=== PATIENT | female | born 1935 | race Caucasian/White ===

== ENCOUNTER → 2021-08-23 | Outpatient (CLI) | payer SELFPAY ==
[2021-08-23 15:13] LABS: BASOPHILS ABSOLUTE AUTO 0.09 K/mm3 (0.00-0.23); BASOPHILS PERCENT AUTO 1 % (0-2); EOSINOPHILS ABSOLUTE AUTO 0.98 K/mm3 (0.00-0.68); EOSINOPHILS PERCENT AUTO 11 % (0-6); Hematocrit 38.9 % (33.0-51.0); Hemoglobin 12.5 g/dL (11.5-16.0); IMMATURE GRAN ABSOLUTE AUTO 0.02 K/mm3 (0.00-0.10); IMMATURE GRAN PERCENT AUTO 0 % (0-1); LYMPHOCYTES ABSOLUTE AUTO 1.44 K/mm3 (0.84-5.20); LYMPHOCYTES PERCENT AUTO 17 % (21-46); MONOCYTES ABSOLUTE AUTO 0.65 K/mm3 (0.16-1.47); MONOCYTES PERCENT AUTO 8 % (4-13); Mean Corpuscular HGB 30.3 pg (26.0-34.0); Mean Corpuscular HGB Conc 32.1 g/dL (31.5-36.5); Mean Corpuscular Volume 94 fL (80-100); Mean Platelet Volume 9.3 fL (9.1-12.4); NEUTROPHILS ABSOLUTE AUTO 5.38 K/mm3 (1.96-9.15); NEUTROPHILS PERCENT AUTO 63 % (41-73); Platelet Count 356 K/mm3 (150-400); RDW Coefficient Variation 13.2 % (11.7-14.2); RDW Standard Deviation 45.5 fL (35.1-46.3); Red Blood Cell Count 4.13 M/mm3 (3.80-5.20); White Blood Cell Count 8.56 K/mm3 (4.00-11.30)
[2021-08-23 15:31] LABS: Albumin, Blood 3.7 g/dL (3.4-5.0); Albumin/Globulin Ratio 0.7 (0.8-1.8); Bilirubin, Total 0.3 mg/dL (0.1-1.0); Bun/Creatinine Ratio 16.4 (12.0-20.0); Calcium, Blood 9.5 mg/dL (8.5-10.1); Creatinine, Blood 2.01 mg/dL (0.40-1.00); Globulin, Blood 5.3 g/dL (2.2-4.0); Potassium, Blood 4.5 mmol/L (3.5-5.5); Thyroid Stimulating Hormone 2.386 uIU/mL (0.360-4.800)
== END | disposition home or self-care (01) ==
LOC: LAB SHORT 15:05
PROVIDERS: Chiropractor
DX: R07.9 Chest pain, unspecified (principal); R53.83 Other fatigue; R60.0 Localized edema
CPT/HCPCS: 80053; 83880; 84443; 84484; 85025; 85379

== ENCOUNTER → 2022-09-27 | Outpatient (CLI) | payer MEDICARE, BC | END | disposition home or self-care (01) | LOC: LAB SHORT 14:48 → PLD 14:48 | DX: L57.0 Actinic keratosis (principal) | CPT/HCPCS: 88305 ==

== ENCOUNTER 2022-12-18 07:47 | Emergency (ER) | payer MEDICARE, BC ==
[~2022-12-18] VITALS: Ht 165.1 cm; Wt 69.8 kg
[2022-12-18] MEDS ORDERED: SYNTHROID75 MCG PO (08:11)
[2022-12-18] MEDS ORDERED: SODBIC650 PO (08:11)
[2022-12-18] MEDS ORDERED: FOLI1 PO (08:12)
[2022-12-18] MEDS ORDERED: SIMBRINZA 1%-0.28 M1 RIGHTEYE (08:12)
[2022-12-18] MEDS ORDERED: FOSAMAX70 MG PO (08:12)
[2022-12-18] MEDS ORDERED: TRULICITY0.75 MG/01 SC (08:12)
[2022-12-18] MEDS ORDERED: CATAPRES-TTS 11 EAC1 TOP (08:12)
[2022-12-18] MEDS ORDERED: GLIP5ER PO (08:13)
[2022-12-18] MEDS ORDERED: HYDRA50 PO (08:13)
[2022-12-18] MEDS ORDERED: LOSARTAN-HCTZ1 EACH PO (08:13)
[2022-12-18] MEDS ORDERED: ASPIR 8181 MG PO (08:14)
[2022-12-18] MEDS ORDERED: ASPI325 (08:15)
[2022-12-18 08:23] LABS: BASOPHILS ABSOLUTE AUTO 0.08 K/mm3 (0.00-0.23); BASOPHILS PERCENT AUTO 1 % (0-2); EOSINOPHILS ABSOLUTE AUTO 0.36 K/mm3 (0.00-0.68); EOSINOPHILS PERCENT AUTO 2 % (0-6); Hematocrit 34.4 % (33.0-51.0); Hemoglobin 11.3 g/dL (11.5-16.0); IMMATURE GRAN ABSOLUTE AUTO 0.05 K/mm3 (0.00-0.10); IMMATURE GRAN PERCENT AUTO 0 % (0-1); LYMPHOCYTES ABSOLUTE AUTO 1.24 K/mm3 (0.84-5.20); LYMPHOCYTES PERCENT AUTO 7 % (21-46); MONOCYTES ABSOLUTE AUTO 0.96 K/mm3 (0.16-1.47); MONOCYTES PERCENT AUTO 6 % (4-13); Mean Corpuscular HGB 30.1 pg (26.0-34.0); Mean Corpuscular HGB Conc 32.8 g/dL (31.5-36.5); Mean Corpuscular Volume 92 fL (80-100); Mean Platelet Volume 9.9 fL (9.1-12.4); NEUTROPHILS ABSOLUTE AUTO 14.82 K/mm3 (1.96-9.15); NEUTROPHILS PERCENT AUTO 85 % (41-73); Platelet Count 307 K/mm3 (150-400); RDW Coefficient Variation 13.1 % (11.7-14.2); RDW Standard Deviation 43.5 fL (35.1-46.3); Red Blood Cell Count 3.76 M/mm3 (3.80-5.20); White Blood Cell Count 17.51 K/mm3 (4.00-11.30)
[2022-12-18 08:46] LABS: Magnesium, Blood 2.1 mg/dL (1.6-2.4)
[2022-12-18 08:47] LABS: Albumin, Blood 3.7 g/dL (3.4-5.0); Albumin/Globulin Ratio 0.9 (0.8-1.8); Bilirubin, Total 0.4 mg/dL (0.1-1.0); Bun/Creatinine Ratio 31.4 (12.0-20.0); Calcium, Blood 9.6 mg/dL (8.5-10.1); Creatinine, Blood 1.59 mg/dL (0.40-1.00); Globulin, Blood 4.1 g/dL (2.2-4.0); Total Protein, Blood 7.8 g/dL (6.4-8.2)
[2022-12-18 12:02] VITALS: BP 138/68
[2022-12-18] MEDS ORDERED: ALBU90OI INH (12:19)
[2022-12-18] MEDS ORDERED: AZIT250 PO (12:19)
[2022-12-18] MEDS ORDERED: PRED20 PO (12:19)
== END 2022-12-18 12:28 | disposition home or self-care (01) ==
LOC: ER 07:47
PROVIDERS: Student in an Organized Health Care Education/Training Program
DX: J44.1 Chronic obstructive pulmonary disease with (acute) exacerbation (principal); R07.81 Pleurodynia; D72.829 Elevated white blood cell count, unspecified; R73.9 Hyperglycemia, unspecified; Z88.8 Allergy status to other drugs, medicaments and biological substances; Z79.899 Other long term (current) drug therapy; Z87.891 Personal history of nicotine dependence
CPT/HCPCS: 71046; 71260; 80053; 83735; 83880; 84145; 84484; 85025; 93005; 93010; 94640; 94664; 96361; 96374; 99285-25; A9270; J1885; J7030; J7512; Q9967

== ENCOUNTER 2023-10-02 12:08 | Inpatient (IN) | payer MEDICARE, BC ==
[~2023-10-02] VITALS: Ht 165.1 cm; Wt 66.5 kg
[~2023-10-02 12:08] MED LIST: ALBU90OI INH; ASPI325; ASPIR 8181 MG PO; AZIT250 PO; Acetaminophen650 M1 PO; CATAPRES0.1 MG PO; DOCUZEN 8.6-501 EACH PO; FERSU300 PO; FOLI1 PO; FOSAMAX70 MG PO; GLIP5ER PO; HYDRA50 PO; LOSARTAN-HCTZ1 EACH PO; MIRALAX17 GM PO; OXYC5 PO; PRED20 PO; SIMBRINZA 1%-0.28 M1 RIGHTEYE; SODBIC650 PO; SYNTHROID75 MCG PO; TRULICITY0.75 MG/01 SC
[2023-10-02] MEDS ORDERED: BYDUREON B2 MG/0.81 SC (12:47)
[2023-10-02] MEDS ORDERED: NS 1,000 ML IV SCH ×3 (13:05→16:10)
[2023-10-02 13:18] LABS: Hematocrit 33.6 % (33.0-51.0); Mean Corpuscular HGB 30.4 pg (26.0-34.0); Mean Corpuscular HGB Conc 32.7 g/dL (31.5-36.5); Mean Corpuscular Volume 93 fL (80-100); Mean Platelet Volume 9.9 fL (9.1-12.4); Platelet Count 278 K/mm3 (150-400); RDW Coefficient Variation 13.6 % (11.7-14.2); RDW Standard Deviation 46.5 fL (35.1-46.3); Red Blood Cell Count 3.62 M/mm3 (3.80-5.20); White Blood Cell Count 20.34 K/mm3 (4.00-11.30)
[2023-10-02 13:35] LABS: Albumin, Blood 3.5 g/dL (3.4-5.0); Albumin/Globulin Ratio 0.8 (0.8-1.8); Bilirubin, Total 0.7 mg/dL (0.1-1.0); Bun/Creatinine Ratio 29.3 (12.0-20.0); Creatinine, Blood 2.29 mg/dL (0.40-1.00); Globulin, Blood 4.4 g/dL (2.2-4.0); Potassium, Blood 5.6 mmol/L (3.5-5.5); Total Protein, Blood 7.9 g/dL (6.4-8.2)
[2023-10-02 13:45] LABS: BAND PERCENT MAN 10 % (0-8); BASOPHILS PERCENT MAN 0 % (0-2); EOSINOPHILS ABSOLUTE MAN 0.61 K/mm3 (0.00-0.68); EOSINOPHILS PERCENT MAN 3 % (0-6); LYMPHOCYTES ABSOLUTE MAN 0.81 K/mm3 (0.84-5.20); LYMPHOCYTES PERCENT MAN 4 % (21-46); MONOCYTES ABSOLUTE MAN 0.61 K/mm3 (0.16-1.47); MONOCYTES PERCENT MAN 3 % (4-13); SEG NEUTROPHILS PERCENT MAN 80 % (41-73); TOTAL CELLS COUNTED 100
[2023-10-02 13:54] LABS: Influenza A, PCR NEGATIVE (NEGATIVE); Influenza B, PCR NEGATIVE (NEGATIVE); Resp Syncytial Virus, PCR NEGATIVE (NEGATIVE); SARS-Cov-2 (COVID-19) PCR, MMC NEGATIVE (NEGATIVE)
[2023-10-02] MEDS ORDERED: CefTRIAXone Sodium 1,000 MG in NS 50 ML IV ONE (14:40)
[2023-10-02] MEDS ORDERED: Azithromycin 500 MG in NS 250 ML IV ONE (14:40)
[2023-10-02] MEDS ORDERED: Albuterol 2.5 MG/3 ML VIAL INH SCH (14:45)
[2023-10-02] MEDS ORDERED: Acetaminophen 325 MG TABLET PO PRN (16:10)
[2023-10-02 16:51] LABS: Source, Urine Clean Catch
[2023-10-02 17:11] LABS: Appearance, Urine Clear (Clear); Bilirubin, Urine Neg (Neg); Blood, Urine Neg (Neg); Color, Urine Yellow (P-Yellow); Glucose Qualitative, Urine Neg (Neg); Ketones, Urine Neg (Neg); Leukocyte Esterase, Urine Neg (Neg); Nitrite, Urine Neg (Neg); Protein, Urine 1+ (Neg); Urobilinogen, Urine NORM (Normal)
[2023-10-02 17:16] LABS: Bun/Creatinine Ratio 27.4 (12.0-20.0); Calcium, Blood 8.1 mg/dL (8.5-10.1); Creatinine, Blood 2.26 mg/dL (0.40-1.00)
[2023-10-02] MEDS ORDERED: FARXIGA10 MG PO (17:27)
[2023-10-02] MEDS ORDERED: FLUT.05NI (17:27)
[2023-10-02] MEDS ORDERED: HYDRA50 PO (17:28)
[2023-10-02] MEDS ORDERED: OXYC5 PO (18:40)
[2023-10-02 18:41] VITALS: BP 116/75
[2023-10-02] MEDS ORDERED: Azithromycin 200 MG/5 ML SUSP 5ML UDC PO ONE (19:00)
--- NOTE | 2023-10-02 19:22 | NUR ---
ADMISSION NOTE: PATIENT ARRIVES TO ROOM VIA GURNEY AT 1820 FROM ER FOR DX'S OF SEPSIS. PATIENT TRANSFERRED TO BED USING SLIDER SHEET c 3 MAX ASSIST. PATIENT/SPOUSE ORIENTATED TO ROOM AND CALL SYSTEM. MEDRIC, ADMISSION AND SKIN ASSESSMENT c 2 RN'S VERIFIED COMPLETED. PATIENT HAS OLD SCAB-HEALED TO COCCYX, MIPELEX DRESSING PLACED FOR PROTECTION. PATIENT A/OX3, CALM, PLEASANT AND COOPERATIVE c CARE. PATIENT HAS PIV TO RAC INFUSING NS AT THIS TIME. BED ALARM ON FOR SAFETY. CALL LIGHT IN REACH. BEDSIDE REPORTS GIVEN TO SUN HIDALGO LPN.
--- NOTE | 2023-10-02 20:42 | NUR ---
CRITICAL LAB VALUE RECEIVED FROM DEJA AT LAB: NOTIFIED: LACTIC ACID 2.6. AT 19;55. NO NEW ORDERS AT THIS TIME.
--- NOTE | 2023-10-02 20:44 | NUR ---
CRITICAL LAB VALUE AND NOTIFIED 11 CRE. NO NEW ORDERS.
[2023-10-02] MEDS ORDERED: Sennosides 8.6 MG Tab PO SCH (21:00)
--- NOTE | 2023-10-02 22:53 | NUR ---
critical value from lab : lactic acid 2.6, received over the phone from Marylu @[phone]. NP. Hull notified (see Critcal value interventions tab.) No new orders at this time.
[2023-10-03 04:05] VITALS: BP 103/67
--- NOTE | 2023-10-03 04:15 | NUR ---
SHIFT SUMMARY PT. IS A&O X4, ABL TO MAKE HER NEEDS KNOWN. BY BEDSIDE T/O THIS SHIFT. NS INFUSING ORDERED, GOOD OUTPUT >1L URINE, PT. HAS A PUREWIC. LUNGS SOUND WHEEZES UPPER LOBES, DMIN LL'S. PT.DENIES PAIN, SOB, N/V, ANY DISCOMFORT. NO ACUTE EVENTS DURING THIS SHIFT. WILL HANDOFF TO INCOMING SHIFT NURSE.
[2023-10-03 06:39] LABS: Hematocrit 34.8 % (33.0-51.0); Hemoglobin 11.5 g/dL (11.5-16.0); Mean Corpuscular HGB 30.3 pg (26.0-34.0); Mean Corpuscular Volume 92 fL (80-100); Mean Platelet Volume 10.3 fL (9.1-12.4); Platelet Count 257 K/mm3 (150-400); RDW Coefficient Variation 13.6 % (11.7-14.2); RDW Standard Deviation 46.1 fL (35.1-46.3); Red Blood Cell Count 3.79 M/mm3 (3.80-5.20); White Blood Cell Count 19.37 K/mm3 (4.00-11.30)
[2023-10-03 07:00] LABS: Albumin, Blood 3.3 g/dL (3.4-5.0); Anion Gap 11 mmol/L (3-11); Blood Urea Nitrogen 54 mg/dL (8-24); Bun/Creatinine Ratio 27.8 (12.0-20.0); CO2, Blood 22 mmol/L (21-32); Calcium, Blood 8.2 mg/dL (8.5-10.1); Chloride, Blood 102 mmol/L (98-108); Creatinine, Blood 1.94 mg/dL (0.40-1.00); Glomerular Filtration Rate 25 (60-); Glucose, Blood 169 mg/dL (70-99); Phosphorus, Blood 2.4 mg/dL (2.5-4.9); Potassium, Blood 3.9 mmol/L (3.5-5.5); Sodium, Blood 131 mmol/L (136-145)
[2023-10-03 07:07] LABS: BAND PERCENT MAN 7 % (0-8); BASOPHILS PERCENT MAN 0 % (0-2); EOSINOPHILS ABSOLUTE MAN 1.74 K/mm3 (0.00-0.68); EOSINOPHILS PERCENT MAN 9 % (0-6); LYMPHOCYTES ABSOLUTE MAN 0.58 K/mm3 (0.84-5.20); LYMPHOCYTES PERCENT MAN 3 % (21-46); MONOCYTES ABSOLUTE MAN 0.58 K/mm3 (0.16-1.47); MONOCYTES PERCENT MAN 3 % (4-13); NEUTROPHILS ABSOLUTE MAN 16.46 K/mm3 (1.96-9.15); SEG NEUTROPHILS PERCENT MAN 78 % (41-73); TOTAL CELLS COUNTED 100
[2023-10-03] MEDS ORDERED: Insulin Human Lispro 100 Units/ML 3ML Syringe SC SCH (07:30)
[2023-10-03 07:43] VITALS: BP 125/77
[2023-10-03] MEDS ORDERED: Heparin Sodium,Porcine 5,000 UNIT/0.5 ML SDV SC SCH (08:00)
[2023-10-03] MEDS ORDERED: Enoxaparin 30 MG/0.3 ML SYR SC SCH (09:00)
[2023-10-03] MEDS ORDERED: CefTRIAXone Sodium 1,000 MG in NS 100 ML IV SCH (12:00)
--- NOTE | 2023-10-03 14:52 | NUR ---
SHIFT SUMMARY PT RESTING QUIETLY AWAKE AT START OF SHIFT, WITH AT BS DURING REPORT. PT ADMITTED FOR SEPSIS ON THE , AND WANTING TO GO HOME TODAY. DR MCKEON IN TO SEE PT AND DISCUSS PLAN OF CARE. PT TO STAY AT LEAST ONE MORE DAY AND SEE IF CX'S COME BACK TO D/C ON APPROPRIATE ABX. PT UP TO CHAIR AT BS AFTER BREAKFAST; 1P ASSIST USING FWW & GB. MULTIPLE FAMILY IN RM AT THIS TIME. NO C/O. CALL LT IN REACH.
[2023-10-03 15:46] VITALS: BP 139/89
[2023-10-03] MEDS ORDERED: Azithromycin 250 MG Tab PO SCH (16:00)
[2023-10-03] MEDS ORDERED: Amoxicillin/Clavulanate K 500 MG Tab PO SCH ×2 (17:00)
[2023-10-03 20:09] VITALS: BP 145/79
--- NOTE | 2023-10-04 02:04 | NUR ---
SHIFT SUMMARY NOTED THAT THE PT. IS MORE CONFUSED DURING THIS SHIFT, AT MIDNIGHT PT. ALERT, ORIENTED TO SELF AND PERSON, REORIENTED TO SITUATION/PLACE/TIME. PT.STATES "IT'S LUNCH TIME" (AT MIDNIGHT.) PT.'S SPENDING THE NIGHT AT THE HOSPITAL ROOM. PT.DENIES PAIN/DISCOMFORT/SOB/CHEST PAIN. LS CLEAR UL'S AND DIMINSHED LL'S.RA. REPORTS SOME COUGHING. NO ACUTE EVENTS/DISTRESS NOTED DURING THIS SHIFT. BED AT THE LOWEST POSITION, CALL LIGHT IN REACH. WILL HANDOFF TO THE IMCOMING SHIFT NURSE. PT. AWAITING FOR A POSSIBLE D/C TODAY.
[2023-10-04 04:38] VITALS: BP 150/90
[2023-10-04 05:22] LABS: BASOPHILS ABSOLUTE AUTO 0.06 K/mm3 (0.00-0.23); BASOPHILS PERCENT AUTO 0 % (0-2); EOSINOPHILS ABSOLUTE AUTO 1.32 K/mm3 (0.00-0.68); EOSINOPHILS PERCENT AUTO 9 % (0-6); Hematocrit 33.3 % (33.0-51.0); IMMATURE GRAN PERCENT AUTO 1 % (0-1); LYMPHOCYTES ABSOLUTE AUTO 0.78 K/mm3 (0.84-5.20); LYMPHOCYTES PERCENT AUTO 5 % (21-46); MONOCYTES ABSOLUTE AUTO 0.86 K/mm3 (0.16-1.47); MONOCYTES PERCENT AUTO 6 % (4-13); Mean Corpuscular HGB 30.4 pg (26.0-34.0); Mean Corpuscular Volume 92 fL (80-100); Mean Platelet Volume 9.8 fL (9.1-12.4); NEUTROPHILS PERCENT AUTO 79 % (41-73); Platelet Count 251 K/mm3 (150-400); RDW Coefficient Variation 13.5 % (11.7-14.2); Red Blood Cell Count 3.62 M/mm3 (3.80-5.20); White Blood Cell Count 14.92 K/mm3 (4.00-11.30)
[2023-10-04 05:39] LABS: Albumin, Blood 3.1 g/dL (3.4-5.0); Anion Gap 11 mmol/L (3-11); Blood Urea Nitrogen 43 mg/dL (8-24); Bun/Creatinine Ratio 31.6 (12.0-20.0); CO2, Blood 21 mmol/L (21-32); Calcium, Blood 8.9 mg/dL (8.5-10.1); Chloride, Blood 105 mmol/L (98-108); Creatinine, Blood 1.36 mg/dL (0.40-1.00); Glomerular Filtration Rate 38 (60-); Glucose, Blood 153 mg/dL (70-99); Phosphorus, Blood 1.8 mg/dL (2.5-4.9); Potassium, Blood 3.7 mmol/L (3.5-5.5); Sodium, Blood 133 mmol/L (136-145)
[2023-10-04 07:22] VITALS: BP 146/107
[2023-10-04] MEDS ORDERED: Alendronate Sodium 70 MG Tablet PO SCH (07:50)
[2023-10-04] MEDS ORDERED: OxyCODONE HCL 5 MG TAB PO PRN (07:50)
[2023-10-04] MEDS ORDERED: Polyethylene Glycol 3350 17 gm PO PRN (07:55)
[2023-10-04] MEDS ORDERED: Ferrous Sulfate 325 MG Tab PO SCH (08:00)
[2023-10-04] MEDS ORDERED: Levothyroxine Sodium 0.075 MG Tab PO SCH (08:02)
[2023-10-04] MEDS ORDERED: Docusate Sodium/Senna 1 Tab PO PRN (08:10)
[2023-10-04] MEDS ORDERED: Albuterol HFA200 ACT/6.7 GM INH INH PRN (08:10)
[2023-10-04] MEDS ORDERED: Fluticasone 0.05% Nasal Spray SCH (09:00)
[2023-10-04] MEDS ORDERED: Sodium Bicarbonate 650 MG Tab PO SCH (09:00)
[2023-10-04] MEDS ORDERED: HydrALAZINE HCl 50 MG Tab PO SCH (09:00)
[2023-10-04] MEDS ORDERED: Aspirin 81 MG TabEC PO SCH (09:00)
[2023-10-04] MEDS ORDERED: Folic Acid 1 MG TAB PO SCH (09:00)
[2023-10-04] MEDS ORDERED: CloNIDine 0.1 MG Tab PO SCH (09:00)
[2023-10-04] MEDS ORDERED: Losartan/HCTZ 50-12.5 TAB PO SCH (09:00)
[2023-10-04 09:55] VITALS: BP 108/75
[2023-10-04] MEDS ORDERED: BRINZOLAMIDE RIGHTEYE SCH (13:40)
[2023-10-04] MEDS ORDERED: BRIMONIDINE RIGHTEYE SCH (13:40)
[2023-10-04 13:55] VITALS: BP 99/67
[2023-10-04] MEDS ORDERED: HydrALAZINE HCl 50 MG Tab PO PRN (14:13)
[2023-10-04 14:51] VITALS: BP 102/65
--- NOTE | 2023-10-04 16:30 | NUR ---
SHIFT SUMMARY PATIENT WITH NO ACUTE EVENTS DURING SHIFT. SHE IS ORIENTEDX4 COOPERATIVE WITH CARE, PARTICIPATES WITH PT AND OT. CURRENTLY RESTING IN RECLINER CHAIR. WILL CONTINUE TO MONITOR.
[2023-10-04 19:15] VITALS: BP 93/59
[2023-10-05 04:46] VITALS: BP 145/89
--- NOTE | 2023-10-05 04:56 | NUR ---
SHIFT SUMMARY NOC PT A/O X 3-4. PLEASANT AND COOPERATIVE WITH CARE. BP SOFT AND BEDTIME DOSE OF CATAPRES HELD. BEDTIME CBG 214 WITH CNI. PUREWICK IN PLACE FOR URGENCY/FREQUENCY. PT SPOUSE STAYED NIGHT IN PT ROOM IN RECLINER. PT EXPECTED TO DISCHARGE HOME TODAY PENDING IF WBC IS WNL. PT CURRENTLY RESTING WITH BED IN LOWEST POSITION, AND CALL LIGHT WITHIN REACH.
[2023-10-05 05:24] LABS: BASOPHILS ABSOLUTE AUTO 0.04 K/mm3 (0.00-0.23); BASOPHILS PERCENT AUTO 0 % (0-2); EOSINOPHILS ABSOLUTE AUTO 1.99 K/mm3 (0.00-0.68); EOSINOPHILS PERCENT AUTO 21 % (0-6); Hematocrit 33.3 % (33.0-51.0); Hemoglobin 11.1 g/dL (11.5-16.0); IMMATURE GRAN ABSOLUTE AUTO 0.03 K/mm3 (0.00-0.10); IMMATURE GRAN PERCENT AUTO 0 % (0-1); LYMPHOCYTES ABSOLUTE AUTO 0.86 K/mm3 (0.84-5.20); LYMPHOCYTES PERCENT AUTO 9 % (21-46); MONOCYTES ABSOLUTE AUTO 0.84 K/mm3 (0.16-1.47); MONOCYTES PERCENT AUTO 9 % (4-13); Mean Corpuscular HGB 30.3 pg (26.0-34.0); Mean Corpuscular HGB Conc 33.3 g/dL (31.5-36.5); Mean Corpuscular Volume 91 fL (80-100); Mean Platelet Volume 9.8 fL (9.1-12.4); NEUTROPHILS ABSOLUTE AUTO 5.91 K/mm3 (1.96-9.15); NEUTROPHILS PERCENT AUTO 61 % (41-73); Platelet Count 253 K/mm3 (150-400); RDW Coefficient Variation 13.2 % (11.7-14.2); RDW Standard Deviation 44.6 fL (35.1-46.3); Red Blood Cell Count 3.66 M/mm3 (3.80-5.20); White Blood Cell Count 9.67 K/mm3 (4.00-11.30)
[2023-10-05 05:57] LABS: Bun/Creatinine Ratio 33.8 (12.0-20.0); Calcium, Blood 9.4 mg/dL (8.5-10.1); Creatinine, Blood 1.36 mg/dL (0.40-1.00); Potassium, Blood 3.9 mmol/L (3.5-5.5)
[2023-10-05 07:20] VITALS: BP 145/89
[2023-10-05] MEDS ORDERED: BRINZOLAMIDE RIGHTEYE SCH (09:00)
[2023-10-05] MEDS ORDERED: BRIMONIDINE RIGHTEYE SCH (09:00)
--- NOTE | 2023-10-05 10:30 | NUR ---
SHIFT SUMMARY AND DISCHARGE PATIENT ALERT AND ITERACTIVE. PATIENT ABLE TO PARTICIPATE IN CARE AND TRANSFER WITH MINIMAL ASSISTANCE TO WHEELCHAIR. IS MAIN CAREGIVER AND MANAGES MEDICATIONS. DISCHARGE INSTRUCTIONS REVIEWED WITH PATIENT AND . BELONGINGS RETURNED TO PATIENT. PATIENT TAKEN OUT VIA WHEELCHAIR BY FOOD TECHNICIAN.
[2023-10-09] MEDS ORDERED: BYDUREON BCISE SC SCH (10:25)
== END 2023-10-05 10:51 | disposition home or self-care (01) | DRG 871 ==
LOC: ER 12:08 → MEDS 16:23 → ENPENDDIS 10-05 09:17 → MEDS 10-05 10:51
PROVIDERS: Internal Medicine; Student in an Organized Health Care Education/Training Program; ADMIT Family Medicine
DX: A41.9 Sepsis, unspecified organism (principal); J18.9 Pneumonia, unspecified organism; N18.4 Chronic kidney disease, stage 4 (severe); N17.9 Acute kidney failure, unspecified; E87.1 Hypo-osmolality and hyponatremia; J44.0 Chronic obstructive pulmonary disease with (acute) lower respiratory infection; Z66 Do not resuscitate; E11.22 Type 2 diabetes mellitus with diabetic chronic kidney disease; E87.5 Hyperkalemia; I12.9 Hypertensive chronic kidney disease with stage 1 through stage 4 chronic kidney disease, or unspecified chronic kidney disease; Z85.118 Personal history of other malignant neoplasm of bronchus and lung; Z92.3 Personal history of irradiation; Z92.21 Personal history of antineoplastic chemotherapy; Z87.891 Personal history of nicotine dependence; Z88.8 Allergy status to other drugs, medicaments and biological substances; Z79.899 Other long term (current) drug therapy; Z79.890 Hormone replacement therapy
CPT/HCPCS: 0241U; 36415; 70450; 71046; 80048; 80053; 80069; 82947; 83605; 83735; 83880; 84484; 85025; 87040; 87449; 93005; 93010; 94664; 94760; 96361; 96365; 96368; 97110; 97116; 97162; 97165; 97530; 97535; 99285-25; A9270; J0456; J0696; J1644; J7030; J7050

== ENCOUNTER 2023-10-15 15:00 | Inpatient (IN) | payer MEDICARE, BC ==
[~2023-10-15] VITALS: Ht 165.1 cm; Wt 66.4 kg
[~2023-10-15 15:00] MED LIST changes: +BYDUREON B2 MG/0.81 SC; +FARXIGA10 MG PO; +FLUT.05NI
[2023-10-15] MEDS ORDERED: Ondansetron HCl 2 MG / ML 2ML Vial IV ONE (15:20)
[2023-10-15] MEDS ORDERED: NS 1,000 ML IV SCH ×3 (15:55→18:30)
[2023-10-15 16:16] LABS: BASOPHILS ABSOLUTE AUTO 0.06 K/mm3 (0.00-0.23); BASOPHILS PERCENT AUTO 0 % (0-2); EOSINOPHILS ABSOLUTE AUTO 0.21 K/mm3 (0.00-0.68); EOSINOPHILS PERCENT AUTO 1 % (0-6); Hematocrit 38.3 % (33.0-51.0); Hemoglobin 12.6 g/dL (11.5-16.0); IMMATURE GRAN ABSOLUTE AUTO 0.12 K/mm3 (0.00-0.10); IMMATURE GRAN PERCENT AUTO 1 % (0-1); LYMPHOCYTES ABSOLUTE AUTO 0.71 K/mm3 (0.84-5.20); LYMPHOCYTES PERCENT AUTO 3 % (21-46); MONOCYTES PERCENT AUTO 2 % (4-13); Mean Corpuscular HGB 30.9 pg (26.0-34.0); Mean Corpuscular HGB Conc 32.9 g/dL (31.5-36.5); Mean Corpuscular Volume 94 fL (80-100); Mean Platelet Volume 9.5 fL (9.1-12.4); NEUTROPHILS ABSOLUTE AUTO 20.79 K/mm3 (1.96-9.15); NEUTROPHILS PERCENT AUTO 93 % (41-73); Platelet Count 390 K/mm3 (150-400); RDW Coefficient Variation 13.7 % (11.7-14.2); Red Blood Cell Count 4.08 M/mm3 (3.80-5.20); White Blood Cell Count 22.39 K/mm3 (4.00-11.30)
[2023-10-15] MEDS ORDERED: SIMBRINZA 1%-0.28 M1 RIGHTEYE (16:16)
[2023-10-15] MEDS ORDERED: CATAPRES0.1 MG PO (16:17)
[2023-10-15 16:40] LABS: Albumin, Blood 3.9 g/dL (3.4-5.0); Bilirubin, Total 0.8 mg/dL (0.1-1.0); Calcium, Blood 10.1 mg/dL (8.5-10.1); Creatinine, Blood 2.38 mg/dL (0.40-1.00); Globulin, Blood 4.1 g/dL (2.2-4.0)
[2023-10-15] MEDS ORDERED: CefTRIAXone Sodium 1,000 MG in NS 50 ML IV ONE (17:10)
[2023-10-15] MEDS ORDERED: Azithromycin 500 MG in NS 250 ML IV ONE (17:15)
[2023-10-15] MEDS ORDERED: Ondansetron HCl 2 MG / ML 2ML Vial IV PRN (18:25)
[2023-10-15] MEDS ORDERED: Acetaminophen 325 MG TABLET PO PRN (18:30)
[2023-10-15] MEDS ORDERED: OxyCODONE HCL 5 MG TAB PO PRN (18:30)
[2023-10-15] MEDS ORDERED: Albuterol HFA200 ACT/6.7 GM INH INH PRN (18:50)
[2023-10-15 20:16] LABS: Source, Urine Straight Cath
[2023-10-15 20:22] LABS: Appearance, Urine Clear (Clear); Bilirubin, Urine Neg (Neg); Blood, Urine Neg (Neg); Color, Urine Yellow (P-Yellow); Glucose Qualitative, Urine 3+ (Neg); Ketones, Urine Neg (Neg); Leukocyte Esterase, Urine 1+ (Neg); Nitrite, Urine Neg (Neg); Protein, Urine 1+ (Neg); Specific Gravity, Urine 1.015 (1.003-1.022); Urobilinogen, Urine NORM (Normal)
--- NOTE | 2023-10-15 20:25 | NUR ---
TRANSFER TO PCU PT ARRIVED TO PCU 7 AT APPROXIMATELY 20:25. ADMISSION ASSESSMENTS AND HISTORY COMPLETED. VSS, AFEBRILE. AT BEDSIDE. PT IS RESTING IN BED, CALL LIGHT WITHIN REACH, BREATHING EVEN AND UNLABORED.
[2023-10-15 20:43] LABS: Bacteria Mod /hpf; Hyaline Casts 0-2 /lpf (0-2); Red Blood Cells, Urine Not Seen /hpf (0-2); Squamous Epithelial Cells Many /hpf (Few)
[2023-10-15 20:45] VITALS: BP 95/65
[2023-10-15] MEDS ORDERED: Brimonidine Tartrate 0.2% Opth 5 ml RIGHTEYE SCH (21:00)
[2023-10-15] MEDS ORDERED: Lactobacil 2-S.Thermo-Bifido 1 1 Cap PO SCH (21:00)
[2023-10-15] MEDS ORDERED: Dorzolamide 2% Opth Soln RIGHTEYE SCH (21:00)
[2023-10-15 22:15] VITALS: BP 93/64
[2023-10-15] MEDS ORDERED: MULVITA PO (22:23)
[2023-10-15 22:45] VITALS: BP 95/65
[2023-10-16 00:05] VITALS: BP 81/64
[2023-10-16 03:09] VITALS: BP 99/66
--- NOTE | 2023-10-16 04:38 | NUR ---
SHIFT SUMMARY NO ACUTE EVENTS SINCE ASSUMPTION OF CARE. PT A&O X4, ABLE TO MAKE NEEDS KNOWN. VSS, BP SOFT WITH MAP >65, HR ST/ SR. SHE DENIES SOB OR CP. LUNGS WITH COARSE CRACKLES IN THE BASES. NS INFUSING AT 100 ML/HR. PW IN PLACE. AT BEDSIDE. PT IS RESTING IN BED, CALL LIGHT WITHIN REACH, BREATHING EVEN AND UNLABORED.
[2023-10-16 05:02] LABS: Hematocrit 35.8 % (33.0-51.0); Hemoglobin 11.2 g/dL (11.5-16.0); Mean Corpuscular HGB 30.7 pg (26.0-34.0); Mean Corpuscular HGB Conc 31.3 g/dL (31.5-36.5); Mean Corpuscular Volume 98 fL (80-100); Mean Platelet Volume 9.7 fL (9.1-12.4); Platelet Count 319 K/mm3 (150-400); RDW Coefficient Variation 13.8 % (11.7-14.2); Red Blood Cell Count 3.65 M/mm3 (3.80-5.20)
[2023-10-16 05:31] LABS: Bun/Creatinine Ratio 22.1 (12.0-20.0); Calcium, Blood 8.7 mg/dL (8.5-10.1); Creatinine, Blood 2.35 mg/dL (0.40-1.00); Potassium, Blood 4.2 mmol/L (3.5-5.5)
[2023-10-16] MEDS ORDERED: Levothyroxine Sodium 0.075 MG Tab PO SCH (06:00)
[2023-10-16 07:25] VITALS: BP 121/73
[2023-10-16] MEDS ORDERED: Insulin Human Lispro 100 Units/ML 3ML Syringe SC SCH (07:30)
[2023-10-16] MEDS ORDERED: Aspirin 81 MG TabEC PO SCH (09:00)
[2023-10-16] MEDS ORDERED: Enoxaparin 30 MG/0.3 ML SYR SC SCH (09:00)
[2023-10-16] MEDS ORDERED: Sodium Bicarbonate 650 MG Tab PO SCH (09:00)
--- NOTE | 2023-10-16 09:59 | NUR ---
AM NOTES; AT BEDSIDE THIS MORNING, PT DENIES ANY CHEST PAIN/SOB, PT HAS LEFT NECK AND SHOULDER PAIN THAT IS CHRONIC, PT WAS MEDICATED BEFORE SHIFT CHANGE. ALERT ADN ORIENTED X3-4 [place]. VITALS HRR ST 100'S, SBP IMPROVED TO 115-120'S, SATS ABOVE 95% ON RA, AFEBRILE. PT REFUSED BREKAFAST THIS MORNING PT STATES SHE'S VEGAN, DIET ORDER CHANGED. HAD SOME MILK AND ORANGES FOR BREAKFAST. NO ISSUES NOTED, TOOK MEDS WITH NO PROBLEMS. ST WAS ORDERED TO EVAL AND TREAT FOR POSS. ASPIRATION. CHEST CT WO CONTRAST ORDERED WELL. SPEECH THERAPIST WORKING ON PT AT THIS TIME, NS RUNNING AT 100MLS/HR. WILL CONTINUE TO MONITOR
[2023-10-16 10:55] VITALS: BP 110/64
[2023-10-16 15:54] VITALS: BP 118/77
[2023-10-16] MEDS ORDERED: FARXIGA10 MG PO (16:24)
[2023-10-16] MEDS ORDERED: HYDRA50 PO (16:25)
[2023-10-16] MEDS ORDERED: BYDUREON B2 MG/0.81 SC (16:28)
[2023-10-16] MEDS ORDERED: TRULICITY1.5 MG/0.1 SC (16:32)
[2023-10-16] MEDS ORDERED: OXYC5 PO (16:34)
[2023-10-16] MEDS ORDERED: Flonase 0.05% N16 GM (16:35)
[2023-10-16] MEDS ORDERED: ALBU90OI INH (16:43)
[2023-10-16] MEDS ORDERED: CefTRIAXone Sodium 1,000 MG in NS 100 ML IV SCH (18:00)
[2023-10-16] MEDS ORDERED: Azithromycin 500 MG in NS 250 ML IV SCH (18:00)
--- NOTE | 2023-10-16 18:32 | NUR ---
PT SUMMARY: NO ACUTE CHANGE FOR THE SHIFT. VITALS HAS BEEN STABLE. PT HAS BEEN GETTING UP IN THE RECLINER AND USES BEDSIDE COMMODE FOR TOILETING, AT BEDSIDE BY THE END OF THE SHIFT MADE AWARE OF THE PLANS. PT ATE DINNER WITH NO ISSUES BROUGHT IT SOME GRILLED CHEESE SANDWICH THE PT C/O NAUSEA, ZOFRAN WAS GIVEN. NO OTHER ISSUES REPORTED WILL REPORT TO ONCOMING SHIFT
[2023-10-16 20:15] VITALS: BP 146/85
[2023-10-16] MEDS ORDERED: Fluticasone 0.05% Nasal Spray SCH (21:00)
[2023-10-17 03:53] VITALS: BP 147/91
--- NOTE | 2023-10-17 05:55 | NUR ---
SHIFT SUMMARY PATIENT ALERT AND ORIENTED x4, INTERMITTENTLY CONFUSION REQUIRING REORIENTATION THIS AM. PUPILS UNEQUAL. LEFT 4MM AND NONREACTIVE TO LIGHT, RIGHT 2MM AND REACTIVE TO LIGHT. TOLERATING ROOM AIR WELL, NO COUGH, DIMINISHED/COARSE LUNG SOUNDS. BREATHING UNLABORED, EVEN CHEST RISE AND FALL. SR - ST ON MONITOR. BP STABLE. PUREWICK IN PLACE AND IN USE THROUGHOUT THE NIGHT, REMOVED THIS MORNING. PATIENT OUT OF BED TO CHAIR THIS AM. AMBULATES WELL WITH FWW AND 1P ASSIST. NO ACUTE EVENTS OVERNIGHT.
[2023-10-17 07:43] VITALS: BP 137/98
[2023-10-17 10:43] LABS: BASOPHILS ABSOLUTE AUTO 0.06 K/mm3 (0.00-0.23); BASOPHILS PERCENT AUTO 0 % (0-2); EOSINOPHILS ABSOLUTE AUTO 1.29 K/mm3 (0.00-0.68); EOSINOPHILS PERCENT AUTO 8 % (0-6); Hematocrit 32.6 % (33.0-51.0); Hemoglobin 10.5 g/dL (11.5-16.0); IMMATURE GRAN ABSOLUTE AUTO 0.06 K/mm3 (0.00-0.10); IMMATURE GRAN PERCENT AUTO 0 % (0-1); LYMPHOCYTES ABSOLUTE AUTO 0.84 K/mm3 (0.84-5.20); LYMPHOCYTES PERCENT AUTO 5 % (21-46); MONOCYTES ABSOLUTE AUTO 0.74 K/mm3 (0.16-1.47); MONOCYTES PERCENT AUTO 5 % (4-13); Mean Corpuscular HGB 29.9 pg (26.0-34.0); Mean Corpuscular HGB Conc 32.2 g/dL (31.5-36.5); Mean Platelet Volume 9.8 fL (9.1-12.4); NEUTROPHILS PERCENT AUTO 81 % (41-73); Platelet Count 336 K/mm3 (150-400); RDW Coefficient Variation 13.7 % (11.7-14.2); RDW Standard Deviation 46.6 fL (35.1-46.3); Red Blood Cell Count 3.51 M/mm3 (3.80-5.20); White Blood Cell Count 15.79 K/mm3 (4.00-11.30)
[2023-10-17 10:48] LABS: Mean Corpuscular Volume 93 fL (80-100)
[2023-10-17 10:54] LABS: Albumin/Globulin Ratio 0.7 (0.8-1.8); Bilirubin, Total 0.3 mg/dL (0.1-1.0); Bun/Creatinine Ratio 22.9 (12.0-20.0); Calcium, Blood 8.7 mg/dL (8.5-10.1); Creatinine, Blood 1.66 mg/dL (0.40-1.00); Globulin, Blood 4.5 g/dL (2.2-4.0); Potassium, Blood 3.6 mmol/L (3.5-5.5); Total Protein, Blood 7.5 g/dL (6.4-8.2)
[2023-10-17] MEDS ORDERED: HydroCHLOROthiazide 25 mg Tab PO SCH (11:00)
[2023-10-17] MEDS ORDERED: Lisinopril 20 MG Tab PO SCH (11:00)
[2023-10-17] MEDS ORDERED: Aspir 8181 MG PO (12:16)
[2023-10-17] MEDS ORDERED: Zithromax Tri-500 MG PO (12:17)
[2023-10-17] MEDS ORDERED: CEFP200 PO (12:18)
--- NOTE | 2023-10-17 12:41 | NUR ---
PT DISCHARGED TO HOME WITH DISCHARGE ORDERS. NEW MEDICATIONS AND INSTRUCTIONS DISCLOSED WITH BOTH THE PT AND . PRESCRIPTIONS SENT TO [facility]. ALL BELONGINGS SENT WITH THE PT, ACCOMPANIED VIA WHEELCHAIR FOR TRANSPORT
== END 2023-10-17 12:35 | disposition home or self-care (01) | DRG 871 ==
LOC: ER 15:00 → PCU 18:23
PROVIDERS: Emergency Medicine; Internal Medicine; Nurse Practitioner Acute Care; Physician Assistant; ADMIT Internal Medicine
DX: A41.9 Sepsis, unspecified organism (principal); J18.9 Pneumonia, unspecified organism; J44.0 Chronic obstructive pulmonary disease with (acute) lower respiratory infection; J98.11 Atelectasis; N17.9 Acute kidney failure, unspecified; N18.4 Chronic kidney disease, stage 4 (severe); E87.1 Hypo-osmolality and hyponatremia; J43.9 Emphysema, unspecified; M81.0 Age-related osteoporosis without current pathological fracture; E03.9 Hypothyroidism, unspecified; E11.649 Type 2 diabetes mellitus with hypoglycemia without coma; E11.22 Type 2 diabetes mellitus with diabetic chronic kidney disease; I12.9 Hypertensive chronic kidney disease with stage 1 through stage 4 chronic kidney disease, or unspecified chronic kidney disease; D50.9 Iron deficiency anemia, unspecified; E86.0 Dehydration; E86.1 Hypovolemia; K21.9 Gastro-esophageal reflux disease without esophagitis; Z85.118 Personal history of other malignant neoplasm of bronchus and lung; Z86.73 Personal history of transient ischemic attack (TIA), and cerebral infarction without residual deficits; Z88.8 Allergy status to other drugs, medicaments and biological substances; Z79.899 Other long term (current) drug therapy; Z79.890 Hormone replacement therapy; Z79.82 Long term (current) use of aspirin; Z79.891 Long term (current) use of opiate analgesic; Z79.51 Long term (current) use of inhaled steroids; Z87.891 Personal history of nicotine dependence
CPT/HCPCS: 36415; 71045; 71250; 80048; 80053; 81001; 82947; 83605; 84145; 85025; 85027; 87077; 87086; 87186; 92610; 96365; 96368; 96375; 99285-25; A9270; J0456; J0696; J1650; J2405; J7030; J7050

== ENCOUNTER 2023-11-02 02:12 | Emergency (ER) | payer MEDICARE, BC ==
[~2023-11-02] VITALS: Ht 162.6 cm; Wt 61.2 kg
[~2023-11-02 02:12] MED LIST changes: +Aspir 8181 MG PO; +CEFP200 PO; +Flonase 0.05% N16 GM; +MULVITA PO; +TRULICITY1.5 MG/0.1 SC; +Zithromax Tri-500 MG PO
[2023-11-02 03:04] LABS: BASOPHILS ABSOLUTE AUTO 0.03 K/mm3 (0.00-0.23); BASOPHILS PERCENT AUTO 0 % (0-2); EOSINOPHILS PERCENT AUTO 2 % (0-6); Hematocrit 36.5 % (33.0-51.0); IMMATURE GRAN ABSOLUTE AUTO 0.04 K/mm3 (0.00-0.10); IMMATURE GRAN PERCENT AUTO 0 % (0-1); LYMPHOCYTES ABSOLUTE AUTO 0.46 K/mm3 (0.84-5.20); LYMPHOCYTES PERCENT AUTO 4 % (21-46); MONOCYTES PERCENT AUTO 4 % (4-13); Mean Corpuscular HGB 30.7 pg (26.0-34.0); Mean Corpuscular HGB Conc 32.9 g/dL (31.5-36.5); Mean Corpuscular Volume 93 fL (80-100); Mean Platelet Volume 9.8 fL (9.1-12.4); NEUTROPHILS ABSOLUTE AUTO 11.87 K/mm3 (1.96-9.15); NEUTROPHILS PERCENT AUTO 91 % (41-73); Platelet Count 296 K/mm3 (150-400); RDW Coefficient Variation 13.6 % (11.7-14.2); RDW Standard Deviation 46.4 fL (35.1-46.3); Red Blood Cell Count 3.91 M/mm3 (3.80-5.20)
[2023-11-02 03:15] LABS: Albumin, Blood 3.3 g/dL (3.4-5.0); Albumin/Globulin Ratio 0.8 (0.8-1.8); Bilirubin, Total 0.6 mg/dL (0.1-1.0); Bun/Creatinine Ratio 20.9 (12.0-20.0); Calcium, Blood 9.1 mg/dL (8.5-10.1); Creatinine, Blood 1.77 mg/dL (0.40-1.00); Globulin, Blood 4.2 g/dL (2.2-4.0); Potassium, Blood 3.9 mmol/L (3.5-5.5); Total Protein, Blood 7.5 g/dL (6.4-8.2)
[2023-11-02] MEDS ORDERED: NS 1,000 ML IV SCH (05:25)
[2023-11-02] MEDS ORDERED: Ipratropium/Albuterol SulF 2.5-0.5MG/3 ML Amp INH ONE (05:25)
[2023-11-02] MEDS ORDERED: Doxycycline Hyclate 100 MG TAB PO ONE (06:50)
[2023-11-02] MEDS ORDERED: PredniSONE 20 MG Tab PO ONE (06:50)
[2023-11-02] MEDS ORDERED: Albuterol 2.5 MG/3 ML VIAL INH SCH (06:50)
[2023-11-02 07:51] VITALS: BP 90/53
[2023-11-02] MEDS ORDERED: DOXY100 PO (08:22)
== END 2023-11-02 08:30 | disposition home or self-care (01) ==
LOC: ER 02:12
PROVIDERS: Student in an Organized Health Care Education/Training Program
DX: J44.1 Chronic obstructive pulmonary disease with (acute) exacerbation (principal); E86.0 Dehydration; I95.9 Hypotension, unspecified; E86.1 Hypovolemia; Z88.8 Allergy status to other drugs, medicaments and biological substances; Z79.899 Other long term (current) drug therapy; Z79.82 Long term (current) use of aspirin; E11.22 Type 2 diabetes mellitus with diabetic chronic kidney disease; N18.4 Chronic kidney disease, stage 4 (severe); I12.9 Hypertensive chronic kidney disease with stage 1 through stage 4 chronic kidney disease, or unspecified chronic kidney disease; E03.9 Hypothyroidism, unspecified; Z87.891 Personal history of nicotine dependence
CPT/HCPCS: 71046; 80053; 83880; 84145; 84484; 85025; 93005; 93010; 94640; 94664; A9270; J7030; J7512

== ENCOUNTER 2023-11-06 11:15 | Emergency (ER) | payer MEDICARE, BC ==
[~2023-11-06] VITALS: Ht 165.1 cm; Wt 65.8 kg
[~2023-11-06 11:15] MED LIST changes: +DOXY100 PO
[2023-11-06 12:38] LABS: BASOPHILS ABSOLUTE AUTO 0.04 K/mm3 (0.00-0.23); BASOPHILS PERCENT AUTO 0 % (0-2); EOSINOPHILS PERCENT AUTO 0 % (0-6); Hematocrit 41.8 % (33.0-51.0); Hemoglobin 13.7 g/dL (11.5-16.0); IMMATURE GRAN ABSOLUTE AUTO 0.13 K/mm3 (0.00-0.10); IMMATURE GRAN PERCENT AUTO 1 % (0-1); LYMPHOCYTES ABSOLUTE AUTO 1.01 K/mm3 (0.84-5.20); LYMPHOCYTES PERCENT AUTO 8 % (21-46); MONOCYTES ABSOLUTE AUTO 0.61 K/mm3 (0.16-1.47); MONOCYTES PERCENT AUTO 5 % (4-13); Mean Corpuscular HGB 30.2 pg (26.0-34.0); Mean Corpuscular HGB Conc 32.8 g/dL (31.5-36.5); Mean Corpuscular Volume 92 fL (80-100); Mean Platelet Volume 9.6 fL (9.1-12.4); NEUTROPHILS ABSOLUTE AUTO 10.52 K/mm3 (1.96-9.15); NEUTROPHILS PERCENT AUTO 85 % (41-73); Platelet Count 345 K/mm3 (150-400); RDW Coefficient Variation 13.2 % (11.7-14.2); Red Blood Cell Count 4.53 M/mm3 (3.80-5.20); White Blood Cell Count 12.31 K/mm3 (4.00-11.30)
[2023-11-06 12:58] LABS: Albumin, Blood 3.5 g/dL (3.4-5.0); Albumin/Globulin Ratio 0.8 (0.8-1.8); Bilirubin, Total 0.5 mg/dL (0.1-1.0); Bun/Creatinine Ratio 37.6 (12.0-20.0); Calcium, Blood 9.7 mg/dL (8.5-10.1); Creatinine, Blood 1.41 mg/dL (0.40-1.00); Globulin, Blood 4.6 g/dL (2.2-4.0); Potassium, Blood 4.3 mmol/L (3.5-5.5); Total Protein, Blood 8.1 g/dL (6.4-8.2)
[2023-11-06] MEDS ORDERED: LOSA50 PO (13:26)
[2023-11-06 13:44] LABS: Source, Urine Clean Catch
[2023-11-06 13:48] LABS: Appearance, Urine Hazy (Clear); Bilirubin, Urine Neg (Neg); Blood, Urine Neg (Neg); Glucose Qualitative, Urine Neg (Neg); Ketones, Urine Neg (Neg); Leukocyte Esterase, Urine 1+ (Neg); Nitrite, Urine Neg (Neg); Protein, Urine 2+ (Neg); Urobilinogen, Urine NORM (Normal)
[2023-11-06 14:06] LABS: Color, Urine Pale Yellow (P-Yellow)
[2023-11-06 14:07] LABS: Bacteria Mod /hpf; Red Blood Cells, Urine Not Seen /hpf (0-2); Squamous Epithelial Cells Mod /hpf (Few)
[2023-11-06 16:00] VITALS: BP 191/107
== END 2023-11-06 16:19 | disposition home or self-care (01) ==
LOC: ER 11:15
PROVIDERS: Physician Assistant
DX: R44.3 Hallucinations, unspecified (principal); T38.0X5A Adverse effect of glucocorticoids and synthetic analogues, initial encounter; J44.9 Chronic obstructive pulmonary disease, unspecified; I12.9 Hypertensive chronic kidney disease with stage 1 through stage 4 chronic kidney disease, or unspecified chronic kidney disease; N18.4 Chronic kidney disease, stage 4 (severe); Z86.73 Personal history of transient ischemic attack (TIA), and cerebral infarction without residual deficits; E03.9 Hypothyroidism, unspecified; E11.22 Type 2 diabetes mellitus with diabetic chronic kidney disease; Z87.891 Personal history of nicotine dependence; Z79.82 Long term (current) use of aspirin; Z79.52 Long term (current) use of systemic steroids; Z79.899 Other long term (current) drug therapy; Z88.8 Allergy status to other drugs, medicaments and biological substances
CPT/HCPCS: 71046; 80053; 81001; 83880; 84484; 85025; 87086; 99285-25; P9612

== ENCOUNTER 2024-02-20 23:59 | Observation (INO) | payer MEDICARE, BC ==
[~2024-02-20] VITALS: Ht 162.6 cm; Wt 70.3 kg
[~2024-02-20 23:59] MED LIST changes: +DOPamine 400 MG/Dextrose 250 ML Bag IV ONE; +EPINEPhrine HCl 0.1 MG/ML 10ML SYR IV ONE; +Heparin Sodium,Porcine 5,000 UNIT/0.5 ML SDV SC ONE; +LOSA50 PO; +Sodium Bicarb 8.4% Inj 1 MEQ/ML 10ML Vial IV ONE
[2024-02-21] VITALS (42 sets, daily range): BP systolic 69–140; BP diastolic 52–99
[2024-02-21] MEDS ORDERED: Clopidogrel Bisulfate 300 MG Cap ONE (00:06)
[2024-02-21] MEDS ORDERED: Clopidogrel Bisulfate 300 MG Cap PO ONE (00:10)
[2024-02-21] MEDS ORDERED: Aspirin 81 MG Chew PO ONE (00:10)
[2024-02-21 00:19] LABS: BASOPHILS ABSOLUTE AUTO 0.07 K/mm3 (0.00-0.23); BASOPHILS PERCENT AUTO 1 % (0-2); EOSINOPHILS ABSOLUTE AUTO 0.58 K/mm3 (0.00-0.68); EOSINOPHILS PERCENT AUTO 5 % (0-6); Hematocrit 37.3 % (33.0-51.0); Hemoglobin 12.7 g/dL (11.5-16.0); IMMATURE GRAN ABSOLUTE AUTO 0.04 K/mm3 (0.00-0.10); IMMATURE GRAN PERCENT AUTO 0 % (0-1); LYMPHOCYTES ABSOLUTE AUTO 2.68 K/mm3 (0.84-5.20); LYMPHOCYTES PERCENT AUTO 22 % (21-46); MONOCYTES ABSOLUTE AUTO 1.06 K/mm3 (0.16-1.47); MONOCYTES PERCENT AUTO 9 % (4-13); Mean Corpuscular HGB 31.1 pg (26.0-34.0); Mean Corpuscular Volume 91 fL (80-100); Mean Platelet Volume 9.3 fL (9.1-12.4); NEUTROPHILS ABSOLUTE AUTO 7.96 K/mm3 (1.96-9.15); NEUTROPHILS PERCENT AUTO 64 % (41-73); Platelet Count 274 K/mm3 (150-400); RDW Coefficient Variation 12.6 % (11.7-14.2); Red Blood Cell Count 4.08 M/mm3 (3.80-5.20); White Blood Cell Count 12.39 K/mm3 (4.00-11.30)
[2024-02-21] MEDS ORDERED: Ondansetron HCl 2 MG / ML 2ML Vial ONE ×2 (00:22→01:13)
[2024-02-21] MEDS ORDERED: NS 250 ML IV ONE (00:24)
[2024-02-21] MEDS ORDERED: Nitroglycerin 2 MG/20 ML BTL ONE (00:24)
[2024-02-21] MEDS ORDERED: Heparin Sodium 1000 Units/ML 10ML MDV ONE (00:24)
[2024-02-21] MEDS ORDERED: Verapamil HCL 2.5 MG/ML 2ML Injection ONE (00:24)
[2024-02-21] MEDS ORDERED: NS 1,000 ML IV ONE ×2 (00:24→00:27)
[2024-02-21] MEDS ORDERED: Atropine Sulfate 0.1 MG/ML 10ML SYR ONE (00:27)
[2024-02-21] MEDS ORDERED: FentaNYL Citrate 50 MCG/ML 2 ML Injection ONE (00:27)
[2024-02-21] MEDS ORDERED: Phenylephrine HCl 100 MCG/ML-NS 10MLSYR (1MG/10ML) ONE (00:28)
[2024-02-21 00:39] LABS: Alanine Aminotransfer (ALT/SGP 14 U/L (12-78); Albumin, Blood 3.7 g/dL (3.4-5.0); Albumin/Globulin Ratio 0.8 (0.8-1.8); Alk Phos 111 U/L (50-136); Anion Gap 12 mmol/L (3-11); Aspartate Aminotrans (AST/SGOT 43 U/L (12-37); Bilirubin, Total 0.3 mg/dL (0.1-1.0); Blood Urea Nitrogen 45 mg/dL (8-24); Bun/Creatinine Ratio 32.1 (12.0-20.0); CHOL/HDL RATIO 2.9; CO2, Blood 24 mmol/L (21-32); Calcium, Blood 9.4 mg/dL (8.5-10.1); Chloride, Blood 97 mmol/L (98-108); Cholesterol 165 mg/dL (50-200); Globulin, Blood 4.4 g/dL (2.2-4.0); Glomerular Filtration Rate 36 (60-); Glucose, Blood 229 mg/dL (70-99); HDL Cholesterol 57 mg/dL (>39); LDL/HDL RATIO 1.3; Low Density Lipoprotein Chol 71 mg/dL (0-110); Magnesium, Blood 2.3 mg/dL (1.6-2.4); Sodium, Blood 129 mmol/L (136-145); Total Protein, Blood 8.1 g/dL (6.4-8.2); Triglycerides 183 mg/dL (30-160); Very Low Density Lipoprot Chol 36 mg/dL (6-32)
[2024-02-21] MEDS ORDERED: Tirofiban HCL Monohydrate 3.75 MG/15 ML Vial ONE (00:57)
[2024-02-21] MEDS ORDERED: FLU VACC TS2024-25(6MOS UP)/PF 45 MCG/0.5 ML SYRINGE IM SCH (01:45)
[2024-02-21] MEDS ORDERED: Ondansetron HCl 2 MG / ML 2ML Vial IV PRN (01:50)
[2024-02-21 02:32] LABS: BASOPHILS ABSOLUTE AUTO 0.11 K/mm3 (0.00-0.23); BASOPHILS PERCENT AUTO 0 % (0-2); EOSINOPHILS PERCENT AUTO 1 % (0-6); Hematocrit 37.6 % (33.0-51.0); Hemoglobin 12.8 g/dL (11.5-16.0); IMMATURE GRAN PERCENT AUTO 1 % (0-1); LYMPHOCYTES PERCENT AUTO 6 % (21-46); MONOCYTES ABSOLUTE AUTO 0.98 K/mm3 (0.16-1.47); MONOCYTES PERCENT AUTO 3 % (4-13); Mean Corpuscular HGB 31.4 pg (26.0-34.0); Mean Corpuscular Volume 92 fL (80-100); Mean Platelet Volume 9.1 fL (9.1-12.4); NEUTROPHILS PERCENT AUTO 89 % (41-73); Platelet Count 351 K/mm3 (150-400); RDW Coefficient Variation 12.6 % (11.7-14.2); RDW Standard Deviation 42.7 fL (35.1-46.3); Red Blood Cell Count 4.08 M/mm3 (3.80-5.20); White Blood Cell Count 29.59 K/mm3 (4.00-11.30)
[2024-02-21] MEDS ORDERED: Heparin Sodium,Porcine/0.5 NS 500 ML IV SCH (03:00)
[2024-02-21 03:02] LABS: International Normalized Ratio 1.01; Prothrombin Time Results 10.8 Sec (9.7-11.5)
[2024-02-21 03:05] LABS: Anti-Xa UFH, PHA Monitoring 1.44 IU/mL
[2024-02-21 06:00] LABS: Albumin, Blood 3.3 g/dL (3.4-5.0); Albumin/Globulin Ratio 0.8 (0.8-1.8); Bilirubin, Total 0.3 mg/dL (0.1-1.0); Bun/Creatinine Ratio 29.6 (12.0-20.0); Calcium, Blood 8.8 mg/dL (8.5-10.1); Creatinine, Blood 1.35 mg/dL (0.40-1.00); Globulin, Blood 3.9 g/dL (2.2-4.0); Total Protein, Blood 7.2 g/dL (6.4-8.2)
--- NOTE | 2024-02-21 06:32 | NUR ---
PT ARRIVED FROM DIRECTOR OF VOCATIONAL GUIDANCE AT APPX 0145 THIS AM, S/P STENT PLACEMENT (STEMI). PT IS ALERT AND ORIENTED X 4 W/SOME FORGETFULNESS AND CONFUSION. SHE IS EASY TO REORIENT AND HER HAS REMAINED AT BEDSIDE. PT WAS UP TO BEDSIDE COMMODE W/ASSIST. TR BAND REMAINS IN PLACE W/3 CC REMOVED. DOPAMINE WAS INFUSING ON ARRIVAL BUT HAS BEEN TITRATED OFF, DREILING SAYS PATIENT CAN HAVE SYSTOLIC OF 80 AND IS FRAGILE. PT IS SR/ST ON THE MARINE ELECTRICIAN. BP WNL. AFEBRILE. NO COMPLAINTS OF CHEST PAIN/PRESSURE OVERNIGHT.
[2024-02-21] MEDS ORDERED: Levothyroxine Sodium 0.075 MG Tab PO SCH (07:00)
--- NOTE | 2024-02-21 07:15 | NUR ---
ASSUMED CARE PT ALERT AND PARTICIPATES IN BSSR. PT HAS TR BAND IN PLACE W/ 10CC AIR. SITE IS SOFT AND NONTENDER WITH NO HEMATOMA FORMATION. PT IS ON CONTINUOUS CARDIAC MONITORING WITH NSR, HR IN 80-90S, SYSTOLIC BP >100, MAP >70. PT IS ON RA WITH SPO2 >96%. RESPIRATIONS ARE EVEN AND UNLABORED. PT CAN UTILIZE BSC WITH 2 NURSE ASSIST. IS SLEEPING AT BEDSIDE. BED IN LOWEST POSITION. CALL LIGHT IN REACH.
[2024-02-21] MEDS ORDERED: DILT120 PO (08:39)
[2024-02-21] MEDS ORDERED: GLIP2.5ER PO (08:40)
[2024-02-21] MEDS ORDERED: Losartan/HCTZ 50-12.5 TAB PO SCH (09:00)
[2024-02-21] MEDS ORDERED: BRINZOLAMIDE RIGHTEYE SCH (09:00)
[2024-02-21] MEDS ORDERED: BRIMONIDINE RIGHTEYE SCH (09:00)
[2024-02-21] MEDS ORDERED: Aspirin 81 MG Chew PO SCH (09:00)
[2024-02-21] MEDS ORDERED: Clopidogrel Bisulfate 75 MG Tab PO SCH (09:00)
[2024-02-21] MEDS ORDERED: Sodium Bicarbonate 650 MG Tab PO SCH (09:00)
[2024-02-21 09:59] LABS: BASOPHILS ABSOLUTE AUTO 0.04 K/mm3 (0.00-0.23); BASOPHILS PERCENT AUTO 0 % (0-2); EOSINOPHILS ABSOLUTE AUTO 0.07 K/mm3 (0.00-0.68); EOSINOPHILS PERCENT AUTO 1 % (0-6); Hematocrit 37.6 % (33.0-51.0); Hemoglobin 12.5 g/dL (11.5-16.0); IMMATURE GRAN ABSOLUTE AUTO 0.05 K/mm3 (0.00-0.10); IMMATURE GRAN PERCENT AUTO 1 % (0-1); LYMPHOCYTES ABSOLUTE AUTO 1.14 K/mm3 (0.84-5.20); LYMPHOCYTES PERCENT AUTO 11 % (21-46); MONOCYTES ABSOLUTE AUTO 0.93 K/mm3 (0.16-1.47); MONOCYTES PERCENT AUTO 9 % (4-13); Mean Corpuscular HGB 31.6 pg (26.0-34.0); Mean Corpuscular HGB Conc 33.2 g/dL (31.5-36.5); Mean Corpuscular Volume 95 fL (80-100); Mean Platelet Volume 9.1 fL (9.1-12.4); NEUTROPHILS ABSOLUTE AUTO 7.94 K/mm3 (1.96-9.15); NEUTROPHILS PERCENT AUTO 78 % (41-73); Platelet Count 284 K/mm3 (150-400); RDW Coefficient Variation 12.7 % (11.7-14.2); RDW Standard Deviation 43.9 fL (35.1-46.3); Red Blood Cell Count 3.96 M/mm3 (3.80-5.20); White Blood Cell Count 10.17 K/mm3 (4.00-11.30)
--- NOTE | 2024-02-21 10:53 | NUR ---
"Spiritual Care Visit | Pt. Request Pt. is awake in bed when she welcomes my visit. Pt. is pleasant. Spouse is at bedside. Facilitated a life review and listened with interest and empathy. In the process Pts. spouse shared some information regarding the Pts. prognosis that the Pt. had not been aware of. With Pastoral care and a calm presence I helped normalize the Pt. experience. Pt. verbalized that she is a woman of [place]. Considered matters of [place] and belief. Prayed with Pt. Pt. because somnolent during prayer and then woke up when she sneezed. Pt. and Spouse both verbalized gratitude for the spiritual care visit."
[2024-02-21] MEDS ORDERED: Insulin Regular 100 UNIT/ML 10ML Vial SC SCH (11:30)
[2024-02-21] MEDS ORDERED: NS 500 ML IV ONE (11:50)
--- NOTE | 2024-02-21 12:00 | NUR ---
PT HAS BEEN MORE SOMNELENT SINCE THIS AM, SHE IS SLEEPING BUT CAN BE ROUSED AND RESPOND TO QUESTIONS. SHE IS ORIENTED TO SELF, PLACE, AND FAMILY WITH HER BUT UNCERTAIN HOW SHE ENDED UP IN THE ICU. HER BP HAS BEEN SYSTOLIC <80 WITH MAP 60-65. DR. RICHARDS WAS CALLED, 500ML BOLUS OF NS STARTED PER HIS ORDER.
--- NOTE | 2024-02-21 17:45 | NUR ---
SHIFT SUMMARY PT WAS ALERT THIS MORNING AND BECAME SOMNELENT AFTER HER MORNING DOSE OF BP MEDICATION. HER SYSTOLIC BP STAYED BETWEEN 70-90 WITH A MAP BETWEEN 60-65. PT IMPROVED AFTER FLUID BOLUS OF 500ML. SHE HAS BEEN ALERT AND ORIENTED SINCE THIS AFTERNOON, EATING DINNER AND WATCHING TELEVISION. SHE IS ABLE TO FOLLOW COMMANDS, UTILIZE BSC AND CONVERSATE APPROPRIATELY. TR BAND IS OFF, TEGADERM IN PLACE WITH NO OOZING. SITE IS SOFT AND NONTENDER WITH NO HEMATOMA FORMATION. PT HAS CONTINUOUS CARDIAC MONITORING. SHE IS IN A SINUS RHYTHM, HR IN 80-90S. SYSTOLIC BP >110, MAP >65. SHE IS ON RA WITH SPO2 >96%. BREATHING EVEN AND UNLABORED. HAS BEEN AT BEDSIDE T/O DAY. BED IN LOWEST POSTION, CALL LIGHT IN REACH.
--- NOTE | 2024-02-21 19:31 | NUR ---
ASSUMED CARE OF PATIENT AT APPROXIMATELY 1900. REPORT RECEIVED FROM GENEVIEVE RN AND WALDEMAR DAVIDSON. PT RESTING UPRIGHT IN BED, WATCHING TELEVSION, AT BEDSIDE. INTERACTING WITH STAFF APPROPRIATELY DURING BEDSIDE REPORT. CARDIAC MONITORING IN PLACE SHOWS SR WITH HR OF 93, BP STABLE AT 114/69, MAP 84. ON RA WITH O2 SATURATION OF 97%. R RAD ACCESS SITE VISUALIZED. NO HEMATOMA, SOFT AND NON-TENDER. VSS AND NO ACUTE NEEDS IDENTIFIED AT THIS TIME. SEE SHIFT ASSESSMENT FOR FURTHER DETAILS.
[2024-02-21] MEDS ORDERED: Atorvastatin 40 MG Tab PO SCH (21:00)
[2024-02-21] MEDS ORDERED: Acetaminophen 325 MG TABLET PO PRN (23:20)
[2024-02-22] VITALS: BP 122/77
--- NOTE | 2024-02-22 00:31 | NUR ---
PT TRANSFERED TO PCU 06, PT IS ALERT AND ORIENTED, ABLE TO WALK TO BED WITH ASSISTANCE. PT IN NORMAL SINUS RHYTHM 60s, DENIES CHEST PAIN. PT NOT REQUIRING OXYGEN, DENIES SHORT OF BREATHE. GI/ WAS WNL. PLAN OF CARE CONTINUED.
[2024-02-22 04:00] VITALS: BP 141/84
--- NOTE | 2024-02-22 04:07 | NUR ---
PT LAYING IN BED WATCHING TELEVISION, NO NEW EVENTS TO REPORT OVERNIGHT. PLAN OF CARE CONTINUED.
[2024-02-22 04:19] LABS: BASOPHILS ABSOLUTE AUTO 0.05 K/mm3 (0.00-0.23); BASOPHILS PERCENT AUTO 1 % (0-2); EOSINOPHILS ABSOLUTE AUTO 0.36 K/mm3 (0.00-0.68); EOSINOPHILS PERCENT AUTO 4 % (0-6); Hematocrit 35.9 % (33.0-51.0); Hemoglobin 11.9 g/dL (11.5-16.0); IMMATURE GRAN ABSOLUTE AUTO 0.03 K/mm3 (0.00-0.10); IMMATURE GRAN PERCENT AUTO 0 % (0-1); LYMPHOCYTES PERCENT AUTO 15 % (21-46); MONOCYTES PERCENT AUTO 8 % (4-13); Mean Corpuscular HGB 30.9 pg (26.0-34.0); Mean Corpuscular HGB Conc 33.1 g/dL (31.5-36.5); Mean Corpuscular Volume 93 fL (80-100); Mean Platelet Volume 9.2 fL (9.1-12.4); NEUTROPHILS ABSOLUTE AUTO 6.13 K/mm3 (1.96-9.15); NEUTROPHILS PERCENT AUTO 71 % (41-73); Platelet Count 288 K/mm3 (150-400); RDW Standard Deviation 44.5 fL (35.1-46.3); Red Blood Cell Count 3.85 M/mm3 (3.80-5.20); White Blood Cell Count 8.57 K/mm3 (4.00-11.30)
[2024-02-22 04:53] LABS: Albumin, Blood 3.6 g/dL (3.4-5.0); Albumin/Globulin Ratio 0.9 (0.8-1.8); Bilirubin, Total 0.3 mg/dL (0.1-1.0); Bun/Creatinine Ratio 25.2 (12.0-20.0); Creatinine, Blood 1.43 mg/dL (0.40-1.00); Globulin, Blood 4.1 g/dL (2.2-4.0); Potassium, Blood 4.2 mmol/L (3.5-5.5); Total Protein, Blood 7.7 g/dL (6.4-8.2)
[2024-02-22 07:50] VITALS: BP 143/80
[2024-02-22 11:00] VITALS: BP 104/64
[2024-02-22 12:05] VITALS: BP 132/81
[2024-02-22] MEDS ORDERED: CLOP75 PO (13:03)
[2024-02-22] MEDS ORDERED: ATOR40TA PO (13:03)
[2024-02-22] MEDS ORDERED: PANT40 PO (13:04)
[2024-02-22 13:11] VITALS: BP 132/75
--- NOTE | 2024-02-22 14:47 | NUR ---
DISCHARGE: PT D/C PCU 6 @1441 VIA WHEELCHAIR. DISCHARGE INSTRUCTIONS AND EDUCATION PROVIDED. ALL BELONGINGS WITH PT.
[2024-02-24 20:44] LABS: HEPARIN ANTI-XA UNRACTIONATED <0.10 U/mL (0.35-0.70)
== END 2024-02-22 14:52 | disposition home or self-care (01) ==
LOC: ER 23:59 → ICUE 02-21 → ER 02-21 00:07 → ICUE 02-21 00:07 → PCU 02-21 23:08
PROVIDERS: Emergency Medicine; Family Medicine; ADMIT Internal Medicine
DX: I21.19 ST elevation (STEMI) myocardial infarction involving other coronary artery of inferior wall (principal); R57.0 Cardiogenic shock; I12.9 Hypertensive chronic kidney disease with stage 1 through stage 4 chronic kidney disease, or unspecified chronic kidney disease; E11.22 Type 2 diabetes mellitus with diabetic chronic kidney disease; N18.4 Chronic kidney disease, stage 4 (severe); J44.9 Chronic obstructive pulmonary disease, unspecified; E03.9 Hypothyroidism, unspecified; Z87.891 Personal history of nicotine dependence; Z85.3 Personal history of malignant neoplasm of breast; Z85.118 Personal history of other malignant neoplasm of bronchus and lung; Z88.8 Allergy status to other drugs, medicaments and biological substances; Z79.82 Long term (current) use of aspirin; Z79.890 Hormone replacement therapy; Z79.52 Long term (current) use of systemic steroids; Z79.899 Other long term (current) drug therapy
CPT/HCPCS: 36415; 71045; 76937; 80053; 80061; 82947; 83735; 84484; 85025; 85520; 85610; 85730; 86850; 86900; 86901; 93005; 93010; 93306; 93454; 96374-59; 99152; 99285; A9270; C1725; C1769; C1874; C1887; C1894; C9600; C9606; G0378; J0461; J1265; J1644; J1815; J2371; J2405; J3010; J3246; J7030; J7050; Q9967

== ENCOUNTER → 2024-04-02 | Outpatient (CLI) | payer MEDICARE, BC ==
[~2024-04-02] MED LIST changes: +ATOR40TA PO; +CLOP75 PO; +DILT120 PO; -DOPamine 400 MG/Dextrose 250 ML Bag IV ONE; -EPINEPhrine HCl 0.1 MG/ML 10ML SYR IV ONE; +GLIP2.5ER PO; -Heparin Sodium,Porcine 5,000 UNIT/0.5 ML SDV SC ONE; +PANT40 PO; -Sodium Bicarb 8.4% Inj 1 MEQ/ML 10ML Vial IV ONE
[2024-04-02 16:20] LABS: Protein, Urine Random 45.9 mg/dL (0.0-11.9); Protein/Creat Ratio, Ur Random 1.5
[2024-04-02 16:23] LABS: Microalb/Creat Ratio UR, Rand 716.129 mg/g (0.000-30.000)
== END ==
LOC: LAB SHORT 11:20 → LAB 11:20
PROVIDERS: Hospitalist
DX: N18.32 Chronic kidney disease, stage 3b (principal); I10 Essential (primary) hypertension
CPT/HCPCS: 36415; 80048; 82043; 82570; 83735; 84156

== ENCOUNTER 2024-04-28 11:22 | Inpatient (IN) | payer MEDICARE, BC ==
[~2024-04-28] VITALS: Ht 165.1 cm; Wt 60.0 kg
[~2024-04-28 11:22] MED LIST changes: +SIMBRINZA 1%-0.28 M1 BOTHEYES
[2024-04-28] MEDS ORDERED: Aspirin 81 MG Chew PO ONE (14:40)
[2024-04-28] MEDS ORDERED: Furosemide 10 MG/ML 4ML Vial IV ONE (14:45)
[2024-04-28 15:15] LABS: BASOPHILS ABSOLUTE AUTO 0.05 K/mm3 (0.00-0.23); BASOPHILS PERCENT AUTO 1 % (0-2); EOSINOPHILS ABSOLUTE AUTO 0.19 K/mm3 (0.00-0.68); EOSINOPHILS PERCENT AUTO 2 % (0-6); Hematocrit 34.6 % (33.0-51.0); Hemoglobin 10.7 g/dL (11.5-16.0); IMMATURE GRAN ABSOLUTE AUTO 0.06 K/mm3 (0.00-0.10); IMMATURE GRAN PERCENT AUTO 1 % (0-1); LYMPHOCYTES ABSOLUTE AUTO 1.04 K/mm3 (0.84-5.20); LYMPHOCYTES PERCENT AUTO 11 % (21-46); MONOCYTES ABSOLUTE AUTO 0.78 K/mm3 (0.16-1.47); MONOCYTES PERCENT AUTO 8 % (4-13); Mean Corpuscular HGB 27.8 pg (26.0-34.0); Mean Corpuscular HGB Conc 30.9 g/dL (31.5-36.5); Mean Corpuscular Volume 90 fL (80-100); Mean Platelet Volume 9.2 fL (9.1-12.4); NEUTROPHILS PERCENT AUTO 79 % (41-73); Platelet Count 440 K/mm3 (150-400); RDW Coefficient Variation 14.3 % (11.7-14.2); RDW Standard Deviation 46.5 fL (35.1-46.3); Red Blood Cell Count 3.85 M/mm3 (3.80-5.20); White Blood Cell Count 9.82 K/mm3 (4.00-11.30)
[2024-04-28 15:40] LABS: Albumin, Blood 3.2 g/dL (3.4-5.0); Albumin/Globulin Ratio 0.7 (0.8-1.8); Bilirubin, Total 0.3 mg/dL (0.1-1.0); Bun/Creatinine Ratio 22.1 (12.0-20.0); Calcium, Blood 9.5 mg/dL (8.5-10.1); Creatinine, Blood 1.45 mg/dL (0.40-1.00); Globulin, Blood 4.9 g/dL (2.2-4.0); Potassium, Blood 4.2 mmol/L (3.5-5.5); Total Protein, Blood 8.1 g/dL (6.4-8.2)
[2024-04-28 16:01] LABS: Influenza A, PCR NEGATIVE (NEGATIVE); Influenza B, PCR NEGATIVE (NEGATIVE); Resp Syncytial Virus, PCR NEGATIVE (NEGATIVE); SARS-Cov-2 (COVID-19) PCR, MMC NEGATIVE (NEGATIVE)
[2024-04-28 17:50] LABS: Anti-Xa UFH, PHA Monitoring <0.10 IU/mL; International Normalized Ratio 0.96; Prothrombin Time Results 10.3 Sec (9.7-11.5)
[2024-04-28] MEDS ORDERED: Dose Adjust by Pharmacy XX STA (17:59)
[2024-04-28] MEDS ORDERED: Heparin Sodium,Porcine/0.5 NS 500 ML IV SCH (18:00)
[2024-04-28] MEDS ORDERED: Heparin Sodium 5000 Units/ML 1ML MDV IV ONE (18:00)
[2024-04-28] MEDS ORDERED: FLU VACC TS2024-25(6MOS UP)/PF 45 MCG/0.5 ML SYRINGE IM SCH (18:25)
[2024-04-28] MEDS ORDERED: Albuterol 2.5 MG/3 ML VIAL INH PRN (18:25)
[2024-04-28] MEDS ORDERED: JARDIANCE10 MG PO (19:10)
[2024-04-28] MEDS ORDERED: TORSE20 PO (19:11)
[2024-04-28 20:57] VITALS: BP 125/76
[2024-04-28 21:05] VITALS: BP 125/76
--- NOTE | 2024-04-28 21:45 | NUR ---
ADMIT NOTE HANDOFF RECEIVED FROM BRICK BURNER JENY. PT ARRIVED TO FLOOR VIA GURNEY. PT ORIENTED TO UNIT. PERSONAL POSSESSIONS WITH PT. CALL BUTTON WITHIN REACH. HEPARIN INFUSING. TELEMETRY IN PLACE.
[2024-04-29 00:06] VITALS: BP 133/75
[2024-04-29] MEDS ORDERED: Acetaminophen 325 MG TABLET PO PRN (00:15)
[2024-04-29] MEDS ORDERED: Dose Adjust by Pharmacy XX STA (01:35)
[2024-04-29 04:05] VITALS: BP 129/69
--- NOTE | 2024-04-29 04:27 | NUR ---
SHIFT SUMMARY ADMITTED FOR CHF EXACERBATION. FULL CODE. HEPARIN DRIP INFUSING ORDERED. NEXT HEP ANTI XA LAB TO BE DRAWN AT 0630 HOURS TODAY. TELEMETRY: NSR @ 96 BPM. AC CBG'S - LOW SS. ADA/VEGETARIAN DIET. SHE IS A&O X4. PUREWICK IN PLACE. SHE IS SEVERELY WEAK AND HAS DYSPNEA W/EXERTION. D. DIMER WAS ELEVATED BUT A PE STUDY DOES NOT REVEAL A CLOT. POSSIBLE LIMITED ECHO PLANNED FOR TODAY. PT HAS BEEN NPO SINCE MIDNIGHT ORDERED. TROPONIN TRENDING DOWN SO FAR. HX: NSTEMI W/STENTS 02/20/24, LUNG CANCER W/CHEMO AND RADIATION FEBRUARY 2020.
[2024-04-29] MEDS ORDERED: Pantoprazole Sodium 40 MG Tab PO SCH (06:00)
[2024-04-29] MEDS ORDERED: Levothyroxine Sodium 0.075 MG Tab PO SCH (06:00)
[2024-04-29 07:02] LABS: Bun/Creatinine Ratio 19.7 (12.0-20.0); Calcium, Blood 9.2 mg/dL (8.5-10.1); Creatinine, Blood 1.52 mg/dL (0.40-1.00); Magnesium, Blood 2.3 mg/dL (1.6-2.4); Potassium, Blood 3.8 mmol/L (3.5-5.5)
[2024-04-29 07:28] VITALS: BP 131/80
[2024-04-29] MEDS ORDERED: Insulin Human Lispro 100 Units/ML 3ML Syringe SC SCH (07:30)
[2024-04-29] MEDS ORDERED: Aspirin 81 MG Chew PO SCH (09:00)
[2024-04-29] MEDS ORDERED: Clopidogrel Bisulfate 75 MG Tab PO SCH (09:00)
[2024-04-29] MEDS ORDERED: Furosemide 10 MG/ML 4ML Vial IV SCH (09:00)
[2024-04-29] MEDS ORDERED: Atorvastatin 40 MG Tab PO SCH (09:00)
[2024-04-29 11:52] VITALS: BP 131/75
[2024-04-29 17:12] VITALS: BP 147/81
--- NOTE | 2024-04-29 18:21 | NUR ---
SHIFT SUMMARY PT A&O X4, CALM, COOPERATIVE TO CARE. HR IN THE 80'S-90'S, SINUS RHYTHM, DENIES CP/PRESSURE, NUMB/TINGLING, SBP STABLE. O2 >92% ON RA, DENIES SOB. PUREWICK IN PLACE, YELLOW URINE. CARDIOLOGY TO BEDSIDE TO DISCUSS PLAN OF CARE. PT TO RECEIVE LASIX WITH STRICT I'S/O'S. HEPARIN GTT INFUSING PER ORDERS. PT RESTING IN BED WITH SPOUSE AT BEDSIDE. SHE DENIES QUESTIONS OR CONCERNS AT THIS TIME. WILL MONITOR PT AND REPORT TO KENO MANAGER RN.
[2024-04-29 20:00] VITALS: BP 146/84
[2024-04-29] MEDS ORDERED: BRINZOLAMIDE RIGHTEYE SCH (21:00)
[2024-04-29] MEDS ORDERED: BRIMONIDINE RIGHTEYE SCH (21:00)
[2024-04-30] VITALS (7 sets, daily range): BP systolic 122–147; BP diastolic 74–93
[2024-04-30 03:18] LABS: BASOPHILS ABSOLUTE AUTO 0.07 K/mm3 (0.00-0.23); BASOPHILS PERCENT AUTO 1 % (0-2); EOSINOPHILS ABSOLUTE AUTO 0.15 K/mm3 (0.00-0.68); EOSINOPHILS PERCENT AUTO 2 % (0-6); Hematocrit 33.7 % (33.0-51.0); Hemoglobin 10.5 g/dL (11.5-16.0); IMMATURE GRAN ABSOLUTE AUTO 0.04 K/mm3 (0.00-0.10); IMMATURE GRAN PERCENT AUTO 0 % (0-1); LYMPHOCYTES ABSOLUTE AUTO 0.68 K/mm3 (0.84-5.20); LYMPHOCYTES PERCENT AUTO 7 % (21-46); MONOCYTES ABSOLUTE AUTO 0.85 K/mm3 (0.16-1.47); MONOCYTES PERCENT AUTO 9 % (4-13); Mean Corpuscular HGB Conc 31.2 g/dL (31.5-36.5); Mean Corpuscular Volume 90 fL (80-100); Mean Platelet Volume 8.9 fL (9.1-12.4); NEUTROPHILS ABSOLUTE AUTO 8.04 K/mm3 (1.96-9.15); NEUTROPHILS PERCENT AUTO 82 % (41-73); Platelet Count 402 K/mm3 (150-400); RDW Coefficient Variation 14.3 % (11.7-14.2); RDW Standard Deviation 46.6 fL (35.1-46.3); Red Blood Cell Count 3.75 M/mm3 (3.80-5.20); White Blood Cell Count 9.83 K/mm3 (4.00-11.30)
[2024-04-30 03:45] LABS: Albumin/Globulin Ratio 0.7 (0.8-1.8); Bilirubin, Total 0.4 mg/dL (0.1-1.0); Bun/Creatinine Ratio 18.8 (12.0-20.0); Calcium, Blood 8.7 mg/dL (8.5-10.1); Creatinine, Blood 1.6 mg/dL (0.40-1.00); Globulin, Blood 4.5 g/dL (2.2-4.0); Potassium, Blood 3.8 mmol/L (3.5-5.5); Total Protein, Blood 7.5 g/dL (6.4-8.2)
--- NOTE | 2024-04-30 04:40 | NUR ---
SHIFT SUMMARY PATIENT HAD NO ACUTE CHANGES. AXOX 4 AND ONE ASSIST TO BSC. PIV INTACT. HEPARIN INFUSING @ 19.8 mL/HR MANAGED BY PHARMACY. DENIES CHEST PAIN, SOB, AND N/V. ON ROOM AIR STATING 97-100%. PUREWICK IN PLACE FOR STRICT I&O'S. HR IN THE 80'S. WATCHED TV ON/OFF. PRESENT UNTIL VISITING HOURS OVER. CALLS APPROPRIATELY. CALL LIGHT IN REACH. BED IN LOWEST POSITION. WILL CONTINUE TO MONITOR UNTIL DAY SHIFT NURSE ASSUMES CARE.
[2024-04-30] MEDS ORDERED: Bumetanide 1 MG Tab PO SCH (09:00)
[2024-04-30] MEDS ORDERED: Magnesium Hydroxide Conc 10 ML UDC PO PRN (11:10)
--- NOTE | 2024-04-30 17:27 | NUR ---
SHIFT SUMMARY PT A&O X4, CALM, COOPERATIVE TO CARE. HR IN THE 80'S-90'S, SINUS RHYTHM, DENIES CP/PRESSURE, NUMB/TINGLING, SBP STABLE. 02 >92% ON RA, DENIES SOB. PT WITH PUREWICK IN PLACE. PT REPORT NO BM FOR FOUR DAYS, AWARE, LAXATIVE ORDERED. PT TO BSC WITH A SMALL BM THIS AFTERNOON. PW IN PLACE FOR INCONTINENCE. BLE EDEMA, MEDICATING PER EMAR. HEPARIN GTT D/C'D THIS AFTERNOON, ORDERED PLACED FOR SUBQ HEPARIN. PT DOWNGRADED TO MEDICAL WITH TELE STATUS. PT UP IN CHAIR EATING AT THIS TIME. PT DENYING ANY CONCERNS AT THIS TIME. WILL MONITOR PT AND REPORT TO BEHAVIORAL HEALTH COUNSELOR RN.
--- NOTE | 2024-04-30 19:38 | NUR ---
ASSESSMENT/ASSUMED CARE PT SITTING UP IN CHAIR READING BIBLE WITH . DENIES PAIN OR DISCOMFORT. STATES,"HOPING TO GO HOME TOMORROW". LUNGS CLEAR BUT DECREASED ON ROOMAIR. RESP EVEN AND NONLABORED. DENIES SOB OR COUGH. HEART RATE REGULAR SINUS TACH 100-110'S. BP STABLE. BILAT PEDAL EDEMA NOTED. MAEW. SKIN WARM AND DRY. BT+ ABD SOFT AND NONTENDER. DENIES N/V. STATES,"I HAD SOME NAUSEA EARLY TODAY, BUT I'M GOOD NOW". IV TO LEFT AC AND LEFT FOREARM SALINE LOCKED. SITES CLEAR. PUREWICK INTACT. DRAINING YELLOW URINE. PT REQUESTED TYLENOL "WHEN I GO TO BED, I ALWAYS TAKE TYLENOL TO HELP SLEEP AT HOME". WILL BRING WITH HS MEDS.
[2024-04-30] MEDS ORDERED: Heparin Sodium,Porcine 5,000 UNIT/0.5 ML SDV SC SCH (21:00)
--- NOTE | 2024-04-30 22:47 | NUR ---
TRANSFER PT TO TRANSFER TO 356. REPORT CALLED TO YESSICA MEDEIROS
[2024-05-01 03:11] VITALS: BP 148/81
[2024-05-01 05:57] LABS: Albumin, Blood 2.9 g/dL (3.4-5.0); Albumin/Globulin Ratio 0.6 (0.8-1.8); Bilirubin, Total 0.4 mg/dL (0.1-1.0); Bun/Creatinine Ratio 17.6 (12.0-20.0); Calcium, Blood 8.8 mg/dL (8.5-10.1); Creatinine, Blood 1.53 mg/dL (0.40-1.00); Globulin, Blood 4.6 g/dL (2.2-4.0); Total Protein, Blood 7.5 g/dL (6.4-8.2)
--- NOTE | 2024-05-01 06:36 | NUR ---
SHIFT SUMMARY: Pt is admitted for CHF exacerbation and is a full code. Is alert and able to make needs known. Has been a 1p for ADLs. denies pain or discomfort when asked. Telly reports sinus in the 90s with no events.
[2024-05-01 08:25] VITALS: BP 144/81
[2024-05-01] MEDS ORDERED: BUME1 PO (15:39)
--- NOTE | 2024-05-01 16:17 | NUR ---
DISCHARGE NOTE PATIENT A/OX4, ABLE TO MAKE NEEDS KNOWN. , LIYAH, AT BEDSIDE. AMBULATED IN HALLWAY APPROX 50 FT WITH STAND BY ASSISTANCE. PUREWICK REMOVED THIS MORNING AND PATIENT ENCOURAGED TO USE BATHROOM AND CALL ASSISTANCE. PATIENT DISCHARGE INSTRUCTIONS SENT TO [facility] PER PATIENT REQUEST. DISCHARGE EDUICATION PROVIDED REGUARDING HEART FAILURE, LIFESTAYLE CHANGES, DIET CHANGES, AND NEW MEDICATIONS. PATIOENT AGREEABLE TO DISCHARGE PLAN. TELEMETRY REMOVED AND IV REMOVED PRIOR TO DISCHARGE. PLAN TO HAVE OUTPATIENT PET SCAN FOR RIGHT LUNG MASS WELL, NO OTHER CONCERNS AT THIS TIME. PATIENT ASSISTED TO FAMILY VEHICLE VIA WHEELCHAIR BY [facility] STAFF.
== END 2024-05-01 16:25 | disposition home or self-care (01) | DRG 291 ==
LOC: ER 11:22 → ERHOLD 18:22 → MEDS 18:22 → PCU 18:22 → MEDS 04-30 22:59
PROVIDERS: Emergency Medicine; Family Medicine; Nurse Practitioner Acute Care; Physician Assistant; ADMIT Internal Medicine
DX: I13.0 Hypertensive heart and chronic kidney disease with heart failure and stage 1 through stage 4 chronic kidney disease, or unspecified chronic kidney disease (principal); I50.33 Acute on chronic diastolic (congestive) heart failure; I24.89 Other forms of acute ischemic heart disease; R91.8 Other nonspecific abnormal finding of lung field; I25.10 Atherosclerotic heart disease of native coronary artery without angina pectoris; J44.9 Chronic obstructive pulmonary disease, unspecified; E11.22 Type 2 diabetes mellitus with diabetic chronic kidney disease; N18.30 Chronic kidney disease, stage 3 unspecified; E03.9 Hypothyroidism, unspecified; D64.9 Anemia, unspecified; I25.2 Old myocardial infarction; Z95.5 Presence of coronary angioplasty implant and graft; Z88.8 Allergy status to other drugs, medicaments and biological substances; Z79.890 Hormone replacement therapy; Z79.84 Long term (current) use of oral hypoglycemic drugs; Z85.118 Personal history of other malignant neoplasm of bronchus and lung; Z92.21 Personal history of antineoplastic chemotherapy; Z92.3 Personal history of irradiation; Z86.73 Personal history of transient ischemic attack (TIA), and cerebral infarction without residual deficits; Z79.02 Long term (current) use of antithrombotics/antiplatelets
CPT/HCPCS: 0241U; 36415; 71046; 71260; 80048; 80053; 82947; 83735; 83880; 84484; 85025; 85379; 85520; 85610; 93005; 93010; 93308; 93321; 94760; 96374-59; 96375-59; 99285-25; A9270; J1644; J1940; Q9967

== ENCOUNTER 2024-07-06 01:51 | Day surgery (SDC) | payer MEDICARE, BC ==
[~2024-07-06 01:51] MED LIST changes: +BUME1 PO; +JARDIANCE10 MG PO; +TORSE20 PO
== END 2024-07-06 23:22 | disposition home or self-care (01) ==
LOC: WOUND 01:51
DX: L89.313 Pressure ulcer of right buttock, stage 3 (principal); L89.323 Pressure ulcer of left buttock, stage 3; E11.40 Type 2 diabetes mellitus with diabetic neuropathy, unspecified; J44.9 Chronic obstructive pulmonary disease, unspecified; I13.0 Hypertensive heart and chronic kidney disease with heart failure and stage 1 through stage 4 chronic kidney disease, or unspecified chronic kidney disease; E11.22 Type 2 diabetes mellitus with diabetic chronic kidney disease; N18.30 Chronic kidney disease, stage 3 unspecified; I50.9 Heart failure, unspecified; I25.10 Atherosclerotic heart disease of native coronary artery without angina pectoris; I25.2 Old myocardial infarction; Z79.84 Long term (current) use of oral hypoglycemic drugs; Z87.891 Personal history of nicotine dependence; Z88.8 Allergy status to other drugs, medicaments and biological substances
CPT/HCPCS: A6213; G0463

== ENCOUNTER → 2024-07-11 | Outpatient (CLI) | payer MEDICARE, BC ==
[~2024-07-11] MED LIST changes: +Bisoprolol Fumar5 MG PO
== END ==
LOC: LAB SHORT 15:15 → LAB 15:15
DX: R82.90 Unspecified abnormal findings in urine (principal)
CPT/HCPCS: 87086

== ENCOUNTER 2024-07-13 02:42 | Day surgery (SDC) | payer MEDICARE, BC ==
[~2024-07-13 02:42] MED LIST changes: -Bisoprolol Fumar5 MG PO
[2024-07-14] MEDS ORDERED: Bisoprolol Fumar5 MG PO (21:31)
== END 2024-07-13 22:52 | disposition home or self-care (01) ==
LOC: WOUND 02:42
DX: E11.622 Type 2 diabetes mellitus with other skin ulcer (principal); L89.323 Pressure ulcer of left buttock, stage 3; L89.313 Pressure ulcer of right buttock, stage 3; R82.90 Unspecified abnormal findings in urine
CPT/HCPCS: 87086; A6213; G0463

== ENCOUNTER 2024-07-14 16:37 | Inpatient (IN) | payer MEDICARE, BC ==
[~2024-07-14] VITALS: Ht 165.1 cm; Wt 61.7 kg
[~2024-07-14 16:37] MED LIST changes: -Bisoprolol Fumar5 MG PO
[2024-07-14] MEDS ORDERED: DOPamine 400 MG/Dextrose 250 ML Bag IV ONE (16:56)
[2024-07-14] MEDS ORDERED: Atropine Sulfate 0.1 MG/ML 10ML SYR XX ONE (16:56)
[2024-07-14] MEDS ORDERED: Furosemide 10 MG/ML 10ML Vial IV ONE (19:25)
[2024-07-14] MEDS ORDERED: Ondansetron HCl 2 MG / ML 2ML Vial IV PRN (19:55)
[2024-07-14] MEDS ORDERED: Albuterol 2.5 MG/3 ML VIAL INH PRN (20:00)
[2024-07-14 21:27] VITALS: BP 130/98
[2024-07-14] MEDS ORDERED: Bisoprolol Fumar5 MG PO (21:31)
[2024-07-15] VITALS (7 sets, daily range): BP systolic 109–147; BP diastolic 62–92
--- NOTE | 2024-07-15 04:34 | NUR ---
SHIFT SUMMARY. SHIFT HAS BEEN UNREMARKABLE. PT ARRIVED IN PCU EARLY IN SHIFT. AOX4, PLEASANT, COOPERATIVE WITH CARE, ABLE TO MAKE NEEDS KNOWN. HAS BECOME MILDLY MORE CONFUSED NIGHT HAS GONE ON BUT HAS REMAINED COOPERATIVE, ABLE TO MAKE NEEDS KNOWN, PLEASANT. VITALS HAVE REMAINED STABLE. MAINTAINS ADEQUATE SATURATION ON ROOM AIR. PT HAS BEEN RUNNING SINUS WITH RATE SETTLING IN THE 70s-80s RANGE. BP HAS BEEN STABLE. PT HAS DENIED PAIN THROUGHOUT SHIFT. PUREWICK IN PLACE D/T PT FALL RISK AND FREQUENT URINE OUTPUT. URINE OUTPUT CHARTED APPROPRIATELY. ADMISSION PROCESS COMPLETED PER PROTOCOL. PT HAS WOUND ON BUTTOCKS, NOTIFIED RESIDENT DR. JARAMILLO. PT REPORTS SEEING WOUND CARE OUTPATIENT FOR MANAGEMENT. PT ALSO HAS SKIN TEAR ON RIGHT HAND WHICH SHE REPORTS IS FROM RECENT FALL AT HOME. BED LOCKED IN LOWEST POSITION. CALL LIGHT LEFT WITHIN REACH. CONTINUING TO MONITOR.
[2024-07-15 04:48] LABS: BASOPHILS ABSOLUTE AUTO 0.02 K/mm3 (0.00-0.23); BASOPHILS PERCENT AUTO 0 % (0-2); EOSINOPHILS ABSOLUTE AUTO 0.04 K/mm3 (0.00-0.68); EOSINOPHILS PERCENT AUTO 0 % (0-6); Hematocrit 36.2 % (33.0-51.0); Hemoglobin 10.8 g/dL (11.5-16.0); IMMATURE GRAN ABSOLUTE AUTO 0.04 K/mm3 (0.00-0.10); IMMATURE GRAN PERCENT AUTO 0 % (0-1); LYMPHOCYTES ABSOLUTE AUTO 0.85 K/mm3 (0.84-5.20); LYMPHOCYTES PERCENT AUTO 9 % (21-46); MONOCYTES ABSOLUTE AUTO 0.83 K/mm3 (0.16-1.47); MONOCYTES PERCENT AUTO 9 % (4-13); Mean Corpuscular HGB Conc 29.8 g/dL (31.5-36.5); Mean Corpuscular Volume 80 fL (80-100); Mean Platelet Volume 9.8 fL (9.1-12.4); NEUTROPHILS ABSOLUTE AUTO 8.04 K/mm3 (1.96-9.15); NEUTROPHILS PERCENT AUTO 82 % (41-73); Platelet Count 379 K/mm3 (150-400); RDW Coefficient Variation 17.3 % (11.7-14.2); RDW Standard Deviation 50.4 fL (35.1-46.3); White Blood Cell Count 9.82 K/mm3 (4.00-11.30)
[2024-07-15 05:31] LABS: Albumin, Blood 2.5 g/dL (3.4-5.0); Albumin/Globulin Ratio 0.6 (0.8-1.8); Bilirubin, Total 0.4 mg/dL (0.1-1.0); Bun/Creatinine Ratio 19.6 (12.0-20.0); Calcium, Blood 8.3 mg/dL (8.5-10.1); Creatinine, Blood 1.48 mg/dL (0.40-1.00); Globulin, Blood 4.4 g/dL (2.2-4.0); Magnesium, Blood 2.9 mg/dL (1.6-2.4); Potassium, Blood 3.3 mmol/L (3.5-5.5); Total Protein, Blood 6.9 g/dL (6.4-8.2)
[2024-07-15] MEDS ORDERED: Levothyroxine Sodium 0.075 MG Tab PO SCH (06:00)
[2024-07-15] MEDS ORDERED: Pantoprazole Sodium 40 MG Tab PO SCH (06:00)
[2024-07-15] MEDS ORDERED: Potassium Chloride 10 Meq Tablet SA PO ONE (07:00)
[2024-07-15] MEDS ORDERED: Insulin Human Lispro 100 Units/ML 3ML Syringe SC SCH (07:30)
[2024-07-15] MEDS ORDERED: BRIMONIDINE 0.2% BOTHEYES SCH (09:00)
[2024-07-15] MEDS ORDERED: Dorzolamide 2% Opth Soln BOTHEYES SCH (09:00)
[2024-07-15] MEDS ORDERED: EYE BOTHEYES SCH (09:00)
[2024-07-15] MEDS ORDERED: Empagliflozin 10 MG TAB PO SCH (09:00)
[2024-07-15] MEDS ORDERED: Folic Acid 1 MG TAB PO SCH (09:00)
[2024-07-15] MEDS ORDERED: Bumetanide 0.25 MG/ML 4ML ViaL IV SCH (09:00)
[2024-07-15] MEDS ORDERED: Clopidogrel Bisulfate 75 MG Tab PO SCH (09:00)
[2024-07-15] MEDS ORDERED: Metoprolol Succinate 50 MG TABCR PO SCH (09:00)
[2024-07-15] MEDS ORDERED: Heparin Sodium,Porcine 5,000 UNIT/0.5 ML SDV SC SCH (09:00)
[2024-07-15] MEDS ORDERED: BRINZOLAMIDE 1% BOTHEYES SCH (09:00)
[2024-07-15] MEDS ORDERED: Brimonidine Tartrate 0.2% Opth 5 ml BOTHEYES SCH (09:00)
[2024-07-15] MEDS ORDERED: Aspirin 81 MG Chew PO SCH (09:00)
[2024-07-15] MEDS ORDERED: Sodium Bicarbonate 650 MG Tab PO SCH (09:00)
--- NOTE | 2024-07-15 18:49 | NUR ---
SHIFT SUMMARY: PT A&OX4. FOLLOWS COMMANDS AND MAKES NEEDS KNOWN TO STAFF. PT WILL TALK ABOUT RANDOM THINGS OFF AND ON BUT IS STILL ORIENTED. PT WAS ABLE TO TRANSFER WITH 2 PERSON. PT HAS A HARD TIME FOLLOWING COMMANDS WITH TRANSFER. PTS DRESSING ON HER BOTTOM WAS CHANGED PER WOUND CARE ORDERS THAT WERE RECIEVED FROM THE WOUND CLINIC. PT RECIEVED BUMEX TODAY AND HAD A GOOD AMOUNT OF URINARY OUTPUT. NO SIGNIFICANT EVENTS HAPPENED DURING THIS SHIFT. WILL CONTINUE TO CARE FOR PT TILL END OF SHIFT.
[2024-07-15 23:56] LABS: Base Excess Venous 5.3 mmol/L; Bicarbonate Venous 28.6 mmol/L (24.0-30.0); PCO2 Venous 44.6 mmHg (38-42); pH Blood Venous 7.43 (7.34-7.37)
[2024-07-16 03:59] VITALS: BP 115/83
[2024-07-16 04:05] LABS: BASOPHILS ABSOLUTE AUTO 0.02 K/mm3 (0.00-0.23); BASOPHILS PERCENT AUTO 0 % (0-2); EOSINOPHILS ABSOLUTE AUTO 0.06 K/mm3 (0.00-0.68); EOSINOPHILS PERCENT AUTO 1 % (0-6); Hematocrit 33.7 % (33.0-51.0); IMMATURE GRAN ABSOLUTE AUTO 0.04 K/mm3 (0.00-0.10); IMMATURE GRAN PERCENT AUTO 0 % (0-1); LYMPHOCYTES ABSOLUTE AUTO 0.95 K/mm3 (0.84-5.20); LYMPHOCYTES PERCENT AUTO 10 % (21-46); MONOCYTES ABSOLUTE AUTO 0.86 K/mm3 (0.16-1.47); MONOCYTES PERCENT AUTO 9 % (4-13); Mean Corpuscular HGB 24.4 pg (26.0-34.0); Mean Corpuscular HGB Conc 29.7 g/dL (31.5-36.5); Mean Corpuscular Volume 82 fL (80-100); Mean Platelet Volume 9.5 fL (9.1-12.4); NEUTROPHILS ABSOLUTE AUTO 7.71 K/mm3 (1.96-9.15); NEUTROPHILS PERCENT AUTO 80 % (41-73); Platelet Count 336 K/mm3 (150-400); RDW Coefficient Variation 17.5 % (11.7-14.2); RDW Standard Deviation 51.3 fL (35.1-46.3); White Blood Cell Count 9.64 K/mm3 (4.00-11.30)
[2024-07-16 04:31] LABS: Bun/Creatinine Ratio 23.7 (12.0-20.0); Calcium, Blood 8.1 mg/dL (8.5-10.1); Creatinine, Blood 1.35 mg/dL (0.40-1.00); Potassium, Blood 3.6 mmol/L (3.5-5.5)
--- NOTE | 2024-07-16 04:32 | NUR ---
SHIFT SUMMARY. SHIFT HAS BEEN MOSTLY UNREMARKABLE. PT HAS BEEN COOPERATIVE, PLEASANT, ABLE TO MAKE NEEDS KNOWN THROUGHOUT SHIFT. HAS BEEN ABLE TO REST COMFORTABLY THROUGHOUT MOST OF SHIFT. PT AOX4 AT SHIFT ONSET, MENTATION HAS SOMEWHAT FLUCTUATED OVERNIGHT WITH PT BEING MORE CONFUSED VERY EARLY THIS MORNING WHEN WOKEN FROM SLEEP BUT PT HAS SINCE BECOME MORE ORIENTED AND ALERT. PT AT BEDSIDE REPORTS THIS IS NOT TOTALLY OFF TRACK FROM HER BASELINE SHE SOMETIMES GETS CONFUSED AT NIGHT. VITALS HAVE REMAINED STABLE, HAS BEEN RUNNING SINUS THROUGHOUT SHIFT WITH RATE SETTLING IN THE 70S-80S RANGE. HAS MAINTAINED ADEQUATE SATURATION ON ROOM AIR OUTSIDE OF EARLY THIS MORNING WHEN 2 L O2 VIA NC WAS PUT IN PLACE TO MAINTAIN SATURATION WHILE SLEEPING. SINCE THAT TIME HAS GONE BACK TO ROOM AIR. PUREWICK IN PLACE THROUGHOUT SHIFT, URINE OUTPUT CHARTED APPROPRIATELY. BED LOCKED IN LOWEST POSITION. CALL LIGHT LEFT WITHIN REACH. CONTINUING TO MONITOR.
[2024-07-16 07:22] VITALS: BP 125/67
--- NOTE | 2024-07-16 07:37 | NUR ---
AM NOTE PT ALERT, ORIENTED X4; AT FIRSTS STATES THE YEAR IS 95, THEN 85, THEN CORRECTS HERSELF AND STATES 2024. CALM AND COOPERATIVE WITH CARE. PT DENIES PAIN, CHEST PAIN/PRESSURE, SOB, NAUSEA, DIZZINESS AND NUMB/TINGLING. TELE SINUS, BP STABLE. EDEMA NOTED TO BLE 3+ AND TRACE GENERALZIED. SPO2 >90% ON RA, BREATHING EVEN AND UNLABORED, CLEAR WITH CRACKLES NOTED TO RIGHT MID AND LOWER LOBES. ABD SOFT, NONTENDER, +BT NOTED T/O. WILL CONTINUE TO MONITOR.
[2024-07-16] MEDS ORDERED: Docusate Sodium 100 MG Cap PO SCH (09:00)
[2024-07-16 11:39] VITALS: BP 124/82
[2024-07-16 16:10] VITALS: BP 107/63
--- NOTE | 2024-07-16 17:49 | NUR ---
Shift Summary Pt sleeping up in the chair for majority of shift. No acute changes noted. VSS. Will continue to monitor.
[2024-07-16] MEDS ORDERED: Calcium Carbonate 500 MG Tab Chew PO PRN (19:40)
[2024-07-16 19:50] VITALS: BP 121/70
[2024-07-17] MEDS ORDERED: Acetaminophen 325 MG TABLET PO PRN (00:10)
[2024-07-17 00:38] VITALS: BP 143/78
[2024-07-17 04:15] VITALS: BP 123/74
[2024-07-17 04:20] LABS: BASOPHILS ABSOLUTE AUTO 0.02 K/mm3 (0.00-0.23); BASOPHILS PERCENT AUTO 0 % (0-2); EOSINOPHILS ABSOLUTE AUTO 0.09 K/mm3 (0.00-0.68); EOSINOPHILS PERCENT AUTO 1 % (0-6); Hematocrit 32.5 % (33.0-51.0); Hemoglobin 9.8 g/dL (11.5-16.0); IMMATURE GRAN ABSOLUTE AUTO 0.03 K/mm3 (0.00-0.10); IMMATURE GRAN PERCENT AUTO 0 % (0-1); LYMPHOCYTES ABSOLUTE AUTO 0.91 K/mm3 (0.84-5.20); LYMPHOCYTES PERCENT AUTO 11 % (21-46); MONOCYTES ABSOLUTE AUTO 0.63 K/mm3 (0.16-1.47); MONOCYTES PERCENT AUTO 8 % (4-13); Mean Corpuscular HGB 23.8 pg (26.0-34.0); Mean Corpuscular HGB Conc 30.2 g/dL (31.5-36.5); Mean Corpuscular Volume 79 fL (80-100); Mean Platelet Volume 9.2 fL (9.1-12.4); NEUTROPHILS ABSOLUTE AUTO 6.66 K/mm3 (1.96-9.15); NEUTROPHILS PERCENT AUTO 80 % (41-73); Platelet Count 333 K/mm3 (150-400); RDW Coefficient Variation 17.5 % (11.7-14.2); Red Blood Cell Count 4.12 M/mm3 (3.80-5.20); White Blood Cell Count 8.34 K/mm3 (4.00-11.30)
[2024-07-17 04:43] LABS: Calcium, Blood 8.4 mg/dL (8.5-10.1); Creatinine, Blood 1.36 mg/dL (0.40-1.00); Potassium, Blood 3.2 mmol/L (3.5-5.5)
--- NOTE | 2024-07-17 04:44 | NUR ---
SHIFT SUMMARY. SHIFT HAS BEEN UNREMARKABLE, NO ACUTE CHANGES. PT AOX4, PLEASANT, COOPERATIVE, ABLE TO MAKE NEEDS KNOWN. HAS BEEN ABLE TO REST COMFORTABLY THROUGHOUT MOST OF SHIFT. CALLS APPROPRIATELY FOR ASSISTANCE. PT COMPLAINED OF BACK PAIN EARLY THIS MORNING FOR WHICH TYLENOL WAS ORDERED AND HAS HELPED TO ALLEVIATE PAIN. STEADY 2PA TRANSFER FROM BED TO CHAIR AND BACK. VITALS STABLE. HAS BEEN RUNNING SINUS WITH RATE IN THE 80s THROUGHOUT MOST OF SHIFT. HAS MAINTAINED ADEQUATE SATURATION ON ROOM AIR. AT BEDSIDE THROUGHOUT SHIFT. PUREWICK IN PLACE T/O SHIFT D/T URGENCY AND URINE OUTPUT CHARTED APPROPRIATELY. BED LOCKED IN LOWEST POSITION. CALL LIGHT LEFT WITHIN REACH. CONTINUING TO MONITOR.
[2024-07-17] MEDS ORDERED: Potassium Chloride 20 MEQ TabCR PO ONE (05:40)
[2024-07-17 08:08] VITALS: BP 134/87
[2024-07-17 12:03] VITALS: BP 128/80
[2024-07-17 16:48] VITALS: BP 132/71
--- NOTE | 2024-07-17 18:00 | NUR ---
Shift Summary Pt alert, oriented x4; forgetful at times, [place], calm and cooperative with care. Pt reports discomfort to coccyx after dressing changes this afternoon, denied need for intervention. Pt denies chest pain/pressure, sob, nausea, dizziness and numb/tingling. Spo2 >90% on ra, breathing even and unlabored. Tele sinus, bp stable. Edema to ble improving, wrinkles noted to ble. abd soft, nontender, +bt. Other vss. No other acute changes noted. Will continue to monitor.
[2024-07-17 19:31] VITALS: BP 137/102
[2024-07-18 04:33] VITALS: BP 128/80
[2024-07-18 05:32] LABS: BASOPHILS ABSOLUTE AUTO 0.02 K/mm3 (0.00-0.23); BASOPHILS PERCENT AUTO 0 % (0-2); EOSINOPHILS ABSOLUTE AUTO 0.06 K/mm3 (0.00-0.68); EOSINOPHILS PERCENT AUTO 1 % (0-6); Hematocrit 32.9 % (33.0-51.0); Hemoglobin 9.8 g/dL (11.5-16.0); IMMATURE GRAN ABSOLUTE AUTO 0.04 K/mm3 (0.00-0.10); IMMATURE GRAN PERCENT AUTO 0 % (0-1); LYMPHOCYTES ABSOLUTE AUTO 0.82 K/mm3 (0.84-5.20); LYMPHOCYTES PERCENT AUTO 9 % (21-46); MONOCYTES ABSOLUTE AUTO 0.69 K/mm3 (0.16-1.47); MONOCYTES PERCENT AUTO 7 % (4-13); Mean Corpuscular HGB 23.7 pg (26.0-34.0); Mean Corpuscular HGB Conc 29.8 g/dL (31.5-36.5); Mean Corpuscular Volume 80 fL (80-100); Mean Platelet Volume 9.2 fL (9.1-12.4); NEUTROPHILS ABSOLUTE AUTO 7.71 K/mm3 (1.96-9.15); NEUTROPHILS PERCENT AUTO 83 % (41-73); Platelet Count 328 K/mm3 (150-400); RDW Coefficient Variation 17.6 % (11.7-14.2); RDW Standard Deviation 50.4 fL (35.1-46.3); Red Blood Cell Count 4.14 M/mm3 (3.80-5.20); White Blood Cell Count 9.34 K/mm3 (4.00-11.30)
[2024-07-18 06:03] LABS: Bun/Creatinine Ratio 23.5 (12.0-20.0); Calcium, Blood 8.6 mg/dL (8.5-10.1); Creatinine, Blood 1.36 mg/dL (0.40-1.00); Potassium, Blood 3.6 mmol/L (3.5-5.5)
--- NOTE | 2024-07-18 06:33 | NUR ---
SHIFT SUMMARY PATIENT ALERT AND ORIENTED X4. MEDICATED PER EMAR FOR PAIN AND INDIGESTION. ON ROOM AIR WITH SPO2 >90%. VITAL SIGNS STABLE. NO ACUTE ISSUES NOTED OVERNIGHT. WILL CONTINUE TO MONITOR. CALL LIGHT WITHIN REACH.
--- NOTE | 2024-07-18 11:18 | NUR ---
SHIFT SUMMARY TRANSFER TO MEDICAL PATIENT AOX4 ABLE TO MAKE NEEDS KNOWN. SHE DENIES PAIN OR SOB. HER VITALS ARE STABLE. SHE IS GETTING IV DIURETICS AND IS ON THE PUREWICK. HER LEGS HAVE 1-2 PLUS PITTING EDEMA. SHE IS AWARE OF THE TRANSFER TO MEDICAL AND HAS NO FURTHER QUESTIONS. IS AT BEDSIDE.
--- NOTE | 2024-07-18 11:41 | NUR ---
PT ARRIVED TO ROOM APPROX 1115 IN BED. PT IS TIRED, HARD TO KEEP EYES OPEN. IS BEDSIDE. REPORT RECEIVED FROM EMMA OF PCU. PT ON PURE WICK CATHETER DUE TO UREGENCY FROM DIURESIS. SKIN CHECK PERFORMED BY THIS RN AND ROGERS RN, NO REDNESS OR OPEN AREAS BESIDES COCCYX AND RIGHT HAND, PICTURES IN CHART. PT ON RA, RUNNING TELE SR. BLOOD SUGAR CHECKS. 2+ EDEMA LOWER EXTREMITIES. BED IN LOWEST POSITION, CALL LIGHT WITHIN REACH.
--- NOTE | 2024-07-18 16:54 | NUR ---
SHIFT SUMMARY PT AO3/4, COOPERATIVE, ABLE TO MAKE NEEDS KNOWN. ADMITTED TO MEDICAL FROM PCU FOR CHF EXACERBATION. PT IS 1/2 PERSON ASSIST, BUT UTILIZING PUREWICK DUE TO DIURESING AND UNABLE TO MAKE IT TO COMMODE BEFORE VOIDING, IN ADDITION TO COCCYX WOUND. PICS IN CHART. NO COMPLAINTS OF PAIN CURRENTLY. IS BEDSIDE. BED IN LOWEST POSITION, CALL LIGHT WITHIN REACH.
[2024-07-18 17:00] VITALS: BP 116/75
[2024-07-18 20:10] VITALS: BP 127/82
[2024-07-18 23:46] VITALS: BP 130/82
--- NOTE | 2024-07-19 03:35 | NUR ---
SHIFT SUMMARY PT ALERT ORIENTED X 4 ABLE TO VERBALIZE NEEDS VSS ON RA SATTING AT 94%. C/O GENERALIZED PAIN MEDICATED WITH TYLENOL WITH GOOD PAIN RELIEF. SHES TURNED AND REPOSITIONED Q2HR TO HELP TO PROTECT THE WOUNDS ON HER BUTTOCKS. REMAINS WITH A PUREWICK WITH YELLOW URINE. THERES A POSSIBILITY SHE MAY NEED A THORACENTESIS DUE TO RT PLEUAL EFFUSION. SHE GETS UP WITH 1 PERSON SBA TO THE COMMODE. LUNG SOUNDS CLEAR AND DIMINISHED. REMAINS ON TELEMETRY AT R AT 91 WITH BBB. SHES RESTING IN BED AT THIS TIME WITH CALL LIGHT IN REACH
[2024-07-19 04:49] VITALS: BP 111/67
[2024-07-19 05:33] LABS: BASOPHILS ABSOLUTE AUTO 0.03 K/mm3 (0.00-0.23); BASOPHILS PERCENT AUTO 0 % (0-2); EOSINOPHILS ABSOLUTE AUTO 0.05 K/mm3 (0.00-0.68); EOSINOPHILS PERCENT AUTO 1 % (0-6); Hematocrit 34.7 % (33.0-51.0); Hemoglobin 10.2 g/dL (11.5-16.0); IMMATURE GRAN ABSOLUTE AUTO 0.03 K/mm3 (0.00-0.10); IMMATURE GRAN PERCENT AUTO 0 % (0-1); LYMPHOCYTES ABSOLUTE AUTO 0.84 K/mm3 (0.84-5.20); LYMPHOCYTES PERCENT AUTO 9 % (21-46); MONOCYTES ABSOLUTE AUTO 0.66 K/mm3 (0.16-1.47); MONOCYTES PERCENT AUTO 7 % (4-13); Mean Corpuscular HGB 23.8 pg (26.0-34.0); Mean Corpuscular HGB Conc 29.4 g/dL (31.5-36.5); Mean Corpuscular Volume 81 fL (80-100); Mean Platelet Volume 9.2 fL (9.1-12.4); NEUTROPHILS ABSOLUTE AUTO 7.44 K/mm3 (1.96-9.15); NEUTROPHILS PERCENT AUTO 82 % (41-73); Platelet Count 349 K/mm3 (150-400); Red Blood Cell Count 4.29 M/mm3 (3.80-5.20); White Blood Cell Count 9.05 K/mm3 (4.00-11.30)
[2024-07-19 05:57] LABS: Bun/Creatinine Ratio 22.9 (12.0-20.0); Calcium, Blood 8.5 mg/dL (8.5-10.1); Creatinine, Blood 1.31 mg/dL (0.40-1.00); Potassium, Blood 3.5 mmol/L (3.5-5.5)
[2024-07-19 08:19] VITALS: BP 140/86
[2024-07-19] MEDS ORDERED: Magnesium Hydroxide Conc 10 ML UDC PO PRN (17:05)
[2024-07-19] MEDS ORDERED: Bisacodyl 10 MG Supp PR PRN (17:05)
--- NOTE | 2024-07-19 17:06 | NUR ---
SHIFT SUMMARY PT AOX4, COOPERATIVE, ABLE TO MAKE NEEDS KNOWN. PT HAS HAD CODES STATUS CHANGE TODAY, REFLECTED IN CHART. 1 PERSON ASSIST TO RECLINER. PURE WICK IN PLACE AND ACTIVE. SUPPOSED TO HAVE PLEUREX DRAIN PLACED ON 07/23 OR WHENEVER [employer] CLEARS SYSTEM. IS BEDSIDE. MD PLACED ORDERS FOR CONSTIPATION. BED IN LOWEST POSITION, CALL LIGHT WITHIN REACH.
--- NOTE | 2024-07-19 17:41 | NUR ---
INITIAL PALLIATIVE CARE VISIT: 1125 MET WITH PT AND SPOUSE LAURA IN ROOM. PT AWAKE AND ABLE TO PARTICIPATE IN MEANINGFUL CONVERSATION. PT IS SLOW TO RESPOND AT TIMES AND [place]. DISCUSS CURRENT MEDICAL CONCERNS AND DECLINING HEALTH OF PATIENT. DISCUSSED PROGNOSIS GIVEN TO PT BY ONCOLOGY FROM LAURA AND PT STANDPOINT. LAURA EXPLAINS [facility] NO LONGER ABLE TO DO RADIATION THERAPY EXCEPT FOR PALLIATIVE REASONS TO REDUCE PAIN. CHEMO IS NO LONGER AN OPTION EITHER. GIVEN PROGNOSIS DISCUSSED CODE STATUS RISKS VS BENEFITS OF CPR VS DNR. PT STATES SHE DOES NOT WANT TO BE PLACED ON A VENTILATOR THEREFORE THEY REQUEST DNR, BUT WANT LIMITED OPTIONS AVAILABLE PROVIDING MEDICATIONS AND BIPAP OR CPAP IF APPROPRIATE. ALSO DISCUSSED IN DETAIL COMFORT CARE MEASURES AND HOSPICE SERVICES WHICH FAMILY REQUESTED INFORMATION ON. LAURA WANTED TIME ALONE WITH TO DISCUSS OPTIONS AND ALSO WANTED TO DISCUSS OPTIONS WITH THEIR DAUGHTER. 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 1630 CALLED BACK TO ROOM TO TALK WITH FAMILY AND PATIENT ABOUT OPTIONS AGAIN. DAUGHTER SCOTT IS ALSO PRESENT. SCOTT BEGINS BY EXPLAINING HOSPICE IS NOT AN OPTION. SHE DISCUSSED HER CONCERNS IN DETAILS AND REPORTS SHE HAD A HORRIBLE EXPERIENCE WHEN HER WAS ON HOSPICE. ACTIVELY LISTENED AND PROVIDED EMPATHETIC RESPONSES TO HER MEMORIES SHE RELAYED. ALSO INFORMED HER THAT HER EXPERIENCE IS NOT THE NORMAL EXPERIENCE AND ENCOURAGED TO NOT LET HER EXPERIENCE IMPACT HER MOTHERS FUTURE CARE. PT STATED HER GOALS ARE TO STAY HOME, SHE DOES NOT WANT TO COME BACK TO THE HOSPITAL. LAURA AND DAUGHTER ARE IN CONFLICT WITH FRANKLIN'S CHOICE. LAURA STATES HE WANTS TO CONTINUE TO TAKE FRANKLIN TO ALL HER MEDICAL APPOINTMENTS, SEEK PALLIATIVE RADIATION, AND RESUME HOME HEALTH SERVICES. DISCUSSED IN DETAIL ALL OPTIONS AVAILABLE FROM PALLIAVE SERVICES THROUGH [facility], AND PALLIATIVE RADIATION AVAILABLE WITH SOME HOSPICE AGENCY'S WHICH I WOULD RESEARCH FOR THEM. THEY ARE INTERESTED IN IN [facility] DRAIN PLACEMENT SO THEY DO NOT HAVE TO COME TO HOSPITAL FOR THORACENTESIS AN OUTPT. ULTIMATELY DECISION WAS TO RESUME HOME HEALTH SERVICES AND THEY WILL DECIDE WHEN THEY ARE READY FOR HOSPICE AND WILL TRANSITION WITH [facility]. UPDATED DR. PAZ ABOUT PT CHOICES. DR. PAZ REQUESTS WE CALL ONCOLOGY TO DETERMINE IF PLEURX IS APPROPRIATE TREATMENT PRIOR TO PLACING CONSULT. ONCOLOGY AVAILABLE TOMORROW. WILL FOLLOW-UP AT THAT TIME.
[2024-07-19 19:31] VITALS: BP 128/83
[2024-07-19] MEDS ORDERED: Sennosides 8.6 MG Tab PO SCH (21:00)
[2024-07-19 23:55] VITALS: BP 135/71
[2024-07-20 03:20] VITALS: BP 126/74
[2024-07-20 06:16] LABS: BASOPHILS ABSOLUTE AUTO 0.03 K/mm3 (0.00-0.23); BASOPHILS PERCENT AUTO 0 % (0-2); EOSINOPHILS ABSOLUTE AUTO 0.16 K/mm3 (0.00-0.68); EOSINOPHILS PERCENT AUTO 2 % (0-6); Hematocrit 38.2 % (33.0-51.0); Hemoglobin 11.4 g/dL (11.5-16.0); IMMATURE GRAN ABSOLUTE AUTO 0.04 K/mm3 (0.00-0.10); IMMATURE GRAN PERCENT AUTO 1 % (0-1); LYMPHOCYTES ABSOLUTE AUTO 0.91 K/mm3 (0.84-5.20); LYMPHOCYTES PERCENT AUTO 11 % (21-46); MONOCYTES ABSOLUTE AUTO 0.62 K/mm3 (0.16-1.47); MONOCYTES PERCENT AUTO 8 % (4-13); Mean Corpuscular HGB 23.7 pg (26.0-34.0); Mean Corpuscular HGB Conc 29.8 g/dL (31.5-36.5); Mean Corpuscular Volume 79 fL (80-100); Mean Platelet Volume 9.3 fL (9.1-12.4); NEUTROPHILS ABSOLUTE AUTO 6.53 K/mm3 (1.96-9.15); NEUTROPHILS PERCENT AUTO 79 % (41-73); Platelet Count 388 K/mm3 (150-400); RDW Coefficient Variation 18.4 % (11.7-14.2); RDW Standard Deviation 51.5 fL (35.1-46.3); Red Blood Cell Count 4.82 M/mm3 (3.80-5.20); White Blood Cell Count 8.29 K/mm3 (4.00-11.30)
--- NOTE | 2024-07-20 06:44 | NUR ---
SHIFT SUMMARY PT ALERT AND ORIENTED TIMES 3. PT IS TWO PERSON ASSIST, HAS TELE READING AT SINUS RHYTHM 74. PT IS RECEPTIVE TO CARE. PT HAS VARIOUS SKIN ISSUES : WOUND ON COCCYX DRESSED WITH MEPILEX, SKIN TEAR PT SAT IN CHAIR PART OF SHIFT APPEARED TO SLEEP ON AND OFF THROUGH THE NIGHT. BED IN LOW POSITION, CALL LIGHT WITHIN REACH, RAILS TIMES 2.
[2024-07-20 06:51] LABS: Bun/Creatinine Ratio 24.4 (12.0-20.0); Calcium, Blood 8.8 mg/dL (8.5-10.1); Creatinine, Blood 1.31 mg/dL (0.40-1.00); Potassium, Blood 3.4 mmol/L (3.5-5.5)
[2024-07-20 07:37] VITALS: BP 129/88
[2024-07-20 12:04] VITALS: BP 150/87
[2024-07-20] MEDS ORDERED: Potassium Chloride 20 MEQ TabCR PO ONE (13:00)
--- NOTE | 2024-07-20 15:49 | NUR ---
Spiritual care visit conducted. The patient is lying in bed and resting. She tells me about her medical problems, her family and her personal struggles. She shares about her strong Anglican braeden and that her braeden is her greatest hope and strength. I Normalized her feelings and provided therapeutic listening and prayer. Patient responded well and showed signs of greater peace. I will continue to remain available to patient and family.
[2024-07-20 16:04] VITALS: BP 123/83
[2024-07-20] MEDS ORDERED: Pantoprazole Sodium 40 MG Tab PO SCH (16:30)
--- NOTE | 2024-07-20 17:29 | NUR ---
PATIENT A/OX3-4, UP WITH 2PA TO CHAIR, BSC. VSS, ON RA. BLOOD SUGARS ACHS, COVERAGE OER SLIDING SCALE. PATIENT REPORTED HEARTBURN TODAY, TUMS GIVEN AND PROTONIX CHANGED TO BID. BOWEL CARE ORDERED AND PATIENT HAD MEDIUM FORMED STOOL TODAY. LUNGS WITH COARSE CRACKLES ON R, MAINTAINING SATS ON RA. PRESSURE SORES TO BUTTOCKS COVERED WITH FOAM DRESSING, PICS ON CHART. AT BEDSIDE THROUHGOUT THE SHIFT. PATIENT PLEASANT AND COOPERATIVE AND ABLE TO MAKE NEEDS KNOWN.
--- NOTE | 2024-07-20 18:13 | NUR ---
PALLIATIVE CARE NOTE: CALL PLACED TO OFFICE OF DR. CALDERON. SPOKE TO ANALILIA REQUESTING DR. CALDERON NOTIFY DR. VERGARA IF HE WOULD RECOMMEND PT TO HAVE PLEURX PLACED PRIOR TO DISCHARGE. ANALILIA SAID SHE WOULD GIVE MESSAGE TO DR. CALDERON. LEFT HER WITH DR. VERGARA'S PHONE #.
[2024-07-20 19:25] VITALS: BP 130/82
[2024-07-21] VITALS (7 sets, daily range): BP systolic 115–145; BP diastolic 67–84
[2024-07-21 11:00] LABS: BASOPHILS ABSOLUTE AUTO 0.02 K/mm3 (0.00-0.23); BASOPHILS PERCENT AUTO 0 % (0-2); EOSINOPHILS ABSOLUTE AUTO 0.06 K/mm3 (0.00-0.68); EOSINOPHILS PERCENT AUTO 1 % (0-6); Hematocrit 35.2 % (33.0-51.0); Hemoglobin 10.6 g/dL (11.5-16.0); IMMATURE GRAN ABSOLUTE AUTO 0.03 K/mm3 (0.00-0.10); IMMATURE GRAN PERCENT AUTO 0 % (0-1); LYMPHOCYTES ABSOLUTE AUTO 0.71 K/mm3 (0.84-5.20); LYMPHOCYTES PERCENT AUTO 8 % (21-46); MONOCYTES PERCENT AUTO 8 % (4-13); Mean Corpuscular HGB 23.9 pg (26.0-34.0); Mean Corpuscular HGB Conc 30.1 g/dL (31.5-36.5); Mean Corpuscular Volume 79 fL (80-100); Mean Platelet Volume 9.5 fL (9.1-12.4); NEUTROPHILS ABSOLUTE AUTO 7.57 K/mm3 (1.96-9.15); NEUTROPHILS PERCENT AUTO 83 % (41-73); Platelet Count 348 K/mm3 (150-400); RDW Coefficient Variation 18.5 % (11.7-14.2); RDW Standard Deviation 51.4 fL (35.1-46.3); Red Blood Cell Count 4.44 M/mm3 (3.80-5.20); White Blood Cell Count 9.09 K/mm3 (4.00-11.30)
[2024-07-21 11:36] LABS: Bun/Creatinine Ratio 25.2 (12.0-20.0); Calcium, Blood 9.1 mg/dL (8.5-10.1); Creatinine, Blood 1.23 mg/dL (0.40-1.00); Potassium, Blood 3.6 mmol/L (3.5-5.5)
--- NOTE | 2024-07-21 18:39 | NUR ---
SHIFT SUMMARY PATIENT WITH NO ACUTE EVENTS DURING SHIFT. WOUND CARE PROVIDED ORDERED BY THIS DESK MAKER AND NEW PHOTO IN CHART. BED IN LOW POSITION, CALL LIGHT IN REACH. SHE IS ABLE TO MAKE HER NEEDS KNOWN.
[2024-07-22] VITALS (59 sets, daily range): BP systolic 70–162; BP diastolic 42–144
--- NOTE | 2024-07-22 03:05 | NUR ---
SHIFT SUMMARY NO ACUTE EVENTS DURING THIS SHIFT. HELD HEPARIN INJ. D/T POSS. THOMACENTESIS TODAY. PT'S BY THE BEDSIDE T/O THE NIGHT HRS. PRN PO TYLENOL FOR CHRONIC PAIN ADMINISTERED AT HS. BED AT THE LOWEST POSITION, CALL LIGHT W/I REACH. PT IS A/O X4, ABLE TO MAKE HER NEEDS KNOWN AND COOPERATIVE WITH CARE.
[2024-07-22 08:09] LABS: BASOPHILS ABSOLUTE AUTO 0.03 K/mm3 (0.00-0.23); BASOPHILS PERCENT AUTO 0 % (0-2); EOSINOPHILS ABSOLUTE AUTO 0.13 K/mm3 (0.00-0.68); EOSINOPHILS PERCENT AUTO 2 % (0-6); Hematocrit 38.2 % (33.0-51.0); Hemoglobin 11.2 g/dL (11.5-16.0); IMMATURE GRAN ABSOLUTE AUTO 0.04 K/mm3 (0.00-0.10); IMMATURE GRAN PERCENT AUTO 1 % (0-1); LYMPHOCYTES ABSOLUTE AUTO 0.73 K/mm3 (0.84-5.20); LYMPHOCYTES PERCENT AUTO 8 % (21-46); MONOCYTES ABSOLUTE AUTO 0.59 K/mm3 (0.16-1.47); MONOCYTES PERCENT AUTO 7 % (4-13); Mean Corpuscular HGB 23.5 pg (26.0-34.0); Mean Corpuscular HGB Conc 29.3 g/dL (31.5-36.5); Mean Corpuscular Volume 80 fL (80-100); Mean Platelet Volume 9.2 fL (9.1-12.4); NEUTROPHILS ABSOLUTE AUTO 7.15 K/mm3 (1.96-9.15); NEUTROPHILS PERCENT AUTO 83 % (41-73); Platelet Count 364 K/mm3 (150-400); RDW Coefficient Variation 18.3 % (11.7-14.2); RDW Standard Deviation 51.9 fL (35.1-46.3); Red Blood Cell Count 4.77 M/mm3 (3.80-5.20); White Blood Cell Count 8.67 K/mm3 (4.00-11.30)
[2024-07-22 08:31] LABS: Bun/Creatinine Ratio 20.9 (12.0-20.0); Calcium, Blood 9.2 mg/dL (8.5-10.1); Creatinine, Blood 1.39 mg/dL (0.40-1.00); Potassium, Blood 3.4 mmol/L (3.5-5.5)
[2024-07-22] MEDS ORDERED: NS 250 ML IV ONE (16:20)
[2024-07-22] MEDS ORDERED: Midodrine 5 MG Tab PO ONE (16:20)
[2024-07-22] MEDS ORDERED: NS 1,000 ML IV ONE ×5 (17:18→23:16)
[2024-07-22] MEDS ORDERED: NS 500 ML IV ONE (17:20)
--- NOTE | 2024-07-22 17:45 | NUR ---
PATIENT TRANSFERRED TO ICU FOR DEVELOPIONG HEMOTHORAX AND HYPOTENSION. BEDSIDE REPORT GIVEN TO WALDEMAR ISABEL. ORDERS PLACED PER TELEPHONE ORDER FOR STAT CHEST CTA, 500ML NS BOLUS AND 1 UNIT PRBC'S. WAS AT BEDSIDE. BELONGING TAKEN TO ICU 10. DR VERGARA TO CONTACTED INTERVENTIONAL RADIOLOGY.
--- NOTE | 2024-07-22 18:43 | NUR ---
"Spiritual Care | Code Blue This service plumber responded to the Code blue, and met with family as Pt. was being moved to ICU. Family had verbalized a desire to have service plumber Edenilson visit. In the present moment I prayed with the family in the hallway. Nurse Flying Teacher gavethe family an update. Family verbalized that the Pt. would not want to be intubated. Family verbalized gratitude for the spiritual care visit."
[2024-07-22] MEDS ORDERED: Dopamine/Dextrose 250 ML IV SCH (18:45)
[2024-07-22] MEDS ORDERED: Pantoprazole Sodium 40 MG Injection IV SCH (18:55)
--- NOTE | 2024-07-22 18:58 | NUR ---
Assumed care of pt on arrival to ICU 10 at 1720. Bedside report received from ore charger and primary RN. Discussed plan of care with Dr Beavers. Discussed that pt was not a candidate for PO meds due to critical illness and reporting abd discomfort. Provider changed protonix order to IV. Provider also notified of hypotension. Provider ordered for a total of 1 L NS bolus to be given. This was started in pt's only IV access. While looking for other IV access, pt's arm with bolus became edematous and so bolus was stopped. Powerglide placed to HAWK by Rajni RN. At 1810, care handoff to Enrrique MEDEIROS. Enrrique took patient to CT scan for Stat CTA. After exam finished and in transit back to ICU, noted pt became bradycardiac and less responsive. Code called at 1825. Call placed to [place] PAIGE to notify. Pt did not lose pulse during this event. 1 mg atropine given on arrival back to room at 1827. Pt became more responsive and slight improvement in HR afterwards. [place] PAIGE gave v/o to start dopamine. Started at 5 mcg/kg/min and quickly up titrated to 20 mcg/kg/min.
--- NOTE | 2024-07-22 19:15 | NUR ---
UPDATE THIS RN TOOK OVER CARE FOR PATIENT SHORTLY AFTER 1800. BRIEF BEDSIDE REP
[2024-07-22] MEDS ORDERED: NS 500 ML IV SCH (19:40)
--- NOTE | 2024-07-22 19:50 | NUR ---
ASSESSMENT/ASSUMED CARE PT LYING IN BED. OPENS EYES TO VERBAL STIMULI. SPEECH SLOW AND SLURRED AT TIMES. A&O X3. REORIENTED TO YEAR PT STATED,"2025". LUNGS CLEAR BUT DECREASED ON ROOMAIR. RESP EVEN AND NONLABORED. HEART RATE REGULAR, BP STABLE ON DOPAMINE AT 20 MCQ. TRACE PEDAL EDEMA. BT+ ABD SOFT AND NONTENDER. POWER GLIDE TO LEFT UPPER ARM WITH NS BOLUS AND DOPAMINE INFUSING. IV 20G TO RIGHT UPPER ARM UNABLE TO FLUSH OR DRAW BLOOD. REMOVED INTACT. DR JAVIER COMING IN TO PLACE A CENTRAL LINE. ATTENDS CHANGED AND NEW PUREWICK PLACED. DRSG TO COCCYX CD&I. PT FOLLOWING INSTRUCTIONS.
[2024-07-22 19:53] LABS: Magnesium, Blood 2.3 mg/dL (1.6-2.4); Potassium, Blood 4.5 mmol/L (3.5-5.5)
--- NOTE | 2024-07-22 20:15 | NUR ---
CENTRAL LINE DR JAVIER TO BEDSIDE. CENTRAL LINE PLACED TO RIGHT IJ. SECOND UNIT OF PRBC STARTED. WAITING PLT AND FFP. PT TOLERATED WELL.
[2024-07-22 20:37] LABS: BASOPHILS ABSOLUTE AUTO 0.02 K/mm3 (0.00-0.23); BASOPHILS PERCENT AUTO 0 % (0-2); EOSINOPHILS PERCENT AUTO 0 % (0-6); Hematocrit 30.6 % (33.0-51.0); Hemoglobin 8.9 g/dL (11.5-16.0); IMMATURE GRAN ABSOLUTE AUTO 0.24 K/mm3 (0.00-0.10); IMMATURE GRAN PERCENT AUTO 1 % (0-1); LYMPHOCYTES ABSOLUTE AUTO 0.97 K/mm3 (0.84-5.20); LYMPHOCYTES PERCENT AUTO 6 % (21-46); MONOCYTES ABSOLUTE AUTO 1.02 K/mm3 (0.16-1.47); MONOCYTES PERCENT AUTO 6 % (4-13); Mean Corpuscular HGB 24.3 pg (26.0-34.0); Mean Corpuscular HGB Conc 29.1 g/dL (31.5-36.5); Mean Corpuscular Volume 83 fL (80-100); Mean Platelet Volume 9.6 fL (9.1-12.4); NEUTROPHILS ABSOLUTE AUTO 15.26 K/mm3 (1.96-9.15); NEUTROPHILS PERCENT AUTO 87 % (41-73); Platelet Count 392 K/mm3 (150-400); RDW Coefficient Variation 18.3 % (11.7-14.2); RDW Standard Deviation 54.9 fL (35.1-46.3); Red Blood Cell Count 3.67 M/mm3 (3.80-5.20); White Blood Cell Count 17.51 K/mm3 (4.00-11.30)
[2024-07-22] MEDS ORDERED: FentaNYL Citrate 50 MCG/ML 2 ML Injection ONE ×2 (20:53→23:22)
--- NOTE | 2024-07-22 21:04 | NUR ---
CHEST TUBE DR JAVIER PLACED LARGE BORE CHEST TO TO RIGHT LATERAL CHEST WALL. RED BLOOD DRAINING. 250-500 ML EBL IN BED WHILE CHEST TUBE PLACED. CHEST TUBE TO SUCTION VIA PLEURAVC AT -20. PT MED WITH TWO DOSES OF FENTANYL 25 MCQ (TOTAL 50 MCQ) DURING CHEST TUBE PLACEMENT. CHEST TUBE ORDERED
[2024-07-22] MEDS ORDERED: FentaNYL Citrate 50 MCG/ML 2 ML Injection IV ONE (21:05)
[2024-07-22] MEDS ORDERED: Lidocaine HCl/Pf 1% 5 ML VIAL XX ONE (21:10)
[2024-07-22] MEDS ORDERED: NS 0 ML IV ONE (21:40)
[2024-07-22] MEDS ORDERED: Heparin Sodium 1000 Units/ML 10ML MDV ONE (21:42)
--- NOTE | 2024-07-22 22:30 | NUR ---
REPOSITION CT/SHAH PLACEMENT DR JAVIER PULLED CHEST TUBE OUT BY 10 CM. NEW DRSG APPLIED. CHEST XRAY DONE. DR JAVIER CONFIRMED PLACEMENT. CHEST TUBE TO SUCTION. SHAH CATH 16 FR TEMP SHAH PLACED. YELLOW URINE DRAINING
--- NOTE | 2024-07-22 22:40 | NUR ---
DR SANTIAGO AND DR JAVIER AT BEDSIDE TALKING WITH FAMILY ABOUT PROCEDURE IN ALUMINUM FABRICATION SUPERVISOR. DR SANTIAGO THAT PT WILL BE FULL CODE WHILE IN ALUMINUM FABRICATION SUPERVISOR AND WILL RETURN TO LIMITED CODE AFTER ALUMINUM FABRICATION SUPERVISOR. LAURA AND DAUGHTER SCOTT AGREED TO PROCEED.
--- NOTE | 2024-07-22 22:40 | NUR ---
AT BEDSIDE DR SANTIAGO AT BEDSIDE EXPLAINING PROCEDURE TO FAMILY. , DAUGHTER AND SITER AT BEDSIDE
--- NOTE | 2024-07-22 23:00 | NUR ---
ICE CREAM VAULT WORKER PT TAKEN TO ICE CREAM VAULT WORKER VIA BED. ON 4 LITERS O2 VIA NC. LEVOPHED AT 4 MCQ AND NS AT 10 ML/HR.
[2024-07-22] MEDS ORDERED: Atropine Sulfate 0.1 MG/ML 10ML SYR ONE (23:19)
[2024-07-23] VITALS (98 sets, daily range): BP systolic 72–153; BP diastolic 46–133
[2024-07-23] MEDS ORDERED: Insulin Human Lispro 100 Units/ML 3ML Syringe SC SCH
--- NOTE | 2024-07-23 00:50 | NUR ---
BACK FROM ELECTRONICS MECHANIC PT ARRIVED BACK FROM ELECTRONICS MECHANIC AT 0010. TRANSPORTED VIA BED. PT OPENS EYES TO VERBAL STIMULI, BUT BACK TO SLEEP QUICKLY. LUNGS CLEAR BUT DECREASED ON 4 LITERS O2 VIA NC. RESP SHALLOW AND NONLABORED. CHEST TUBE TO RIGHT LATERAL CHEST WALL WITH -20 SUCTIONS. HEART RATE REGULAR IN THE 80'S. BP STABLE ON LEVOPHED AT 2 MCQ. WILL TITRATE TO KEEP MAP GREATER THAN 65. TRACE PEDAL EDEMA. SCD'S ON BILAT LOWER EXT. BT+ ABD SOFT AND NONTENDER. CENTRAL LINE TO RIGHT IJ, DRSG INTACT AND SITE CLEAR. POWER GLIDE TO LEFT UPPER ARM SALINE LOCKED. DRSG INTACT AND SITE CLEAR. OLD LINEN REMOVED AND PT TURNED TO RIGHT SIDE WITH 30 DEGREE WEDGE BEHIND PT TO KEEP OFF COCCYX. DRSG TO COCCYX CD&I. RIGHT GROINT SOFT TO PALPATION. NOT HEMATOMA OR BLEEDING NOTED. DRSG INTACT. PT BACK TO SLEEP QUICKLY AFTER ASSESSMENT. FAMILY TO BED SIDE
[2024-07-23 03:15] LABS: BASOPHILS ABSOLUTE AUTO 0.04 K/mm3 (0.00-0.23); BASOPHILS PERCENT AUTO 0 % (0-2); EOSINOPHILS PERCENT AUTO 0 % (0-6); Hemoglobin 9.3 g/dL (11.5-16.0); IMMATURE GRAN ABSOLUTE AUTO 0.35 K/mm3 (0.00-0.10); IMMATURE GRAN PERCENT AUTO 2 % (0-1); LYMPHOCYTES ABSOLUTE AUTO 0.84 K/mm3 (0.84-5.20); LYMPHOCYTES PERCENT AUTO 4 % (21-46); MONOCYTES ABSOLUTE AUTO 1.06 K/mm3 (0.16-1.47); MONOCYTES PERCENT AUTO 5 % (4-13); Mean Corpuscular HGB 26.6 pg (26.0-34.0); Mean Corpuscular HGB Conc 32.1 g/dL (31.5-36.5); Mean Corpuscular Volume 83 fL (80-100); Mean Platelet Volume 9.4 fL (9.1-12.4); NEUTROPHILS ABSOLUTE AUTO 17.87 K/mm3 (1.96-9.15); NEUTROPHILS PERCENT AUTO 89 % (41-73); Platelet Count 331 K/mm3 (150-400); RDW Coefficient Variation 16.8 % (11.7-14.2); Red Blood Cell Count 3.49 M/mm3 (3.80-5.20); White Blood Cell Count 20.16 K/mm3 (4.00-11.30)
[2024-07-23 03:38] LABS: Bun/Creatinine Ratio 24.4 (12.0-20.0); Calcium, Blood 7.4 mg/dL (8.5-10.1); Creatinine, Blood 1.35 mg/dL (0.40-1.00); Magnesium, Blood 2.2 mg/dL (1.6-2.4); Phosphorus, Blood 3.6 mg/dL (2.5-4.9); Potassium, Blood 3.5 mmol/L (3.5-5.5)
[2024-07-23] MEDS ORDERED: CALCIUM GLUC IN NACL, ISO-OSM 50 ML IV ONE (03:50)
--- NOTE | 2024-07-23 03:52 | NUR ---
CALL TO MD LABS CALLED TO DR CHEUNG. SEE NEW ORDERS
[2024-07-23] MEDS ORDERED: Potassium Chloride 40 MEQ in NS 250 ML IV ONE (04:45)
[2024-07-23] MEDS ORDERED: NS 1,000 ML IV ONE (06:20)
[2024-07-23] MEDS ORDERED: Furosemide 10 MG/ML 4ML Vial IV ONE (09:25)
[2024-07-23 09:39] LABS: Hematocrit 28.4 % (33.0-51.0)
[2024-07-23 09:57] LABS: International Normalized Ratio 1.05; Prothrombin Time Results 11.2 Sec (9.7-11.5)
--- NOTE | 2024-07-23 14:26 | NUR ---
Patient is lying in bed and resting. Family is gathered around. They share with me about their strong Chrisitan beliefs. I conduct a brief life review, and provided pastoral preparole counseling aide and prayer. Family voice their appreciation and stated that they were comforted by the visit and prayer. I will continue to remain available to patient and family.
[2024-07-23 15:42] LABS: Hematocrit 28.8 % (33.0-51.0); Hemoglobin 8.9 g/dL (11.5-16.0)
--- NOTE | 2024-07-23 17:11 | NUR ---
Met with pt's and sister at bedside at approximately 1030am today. Pt did not wake during our visit. Both Dr. Mccann and this RN discussed the pt's condition, uncluding new speech evaluation for choking on water. Last night, she developed hypotension and hemothorax. She was placed on presser and chest tube placed. She has multiple co-morbidities, lung cancer, COPD, Anemia. Given the cancer, the patient is not a candidate for operations at this time, and she is likely to succumb to this illness. Pt's family remains optimistic, and "praying for a miracle.
--- NOTE | 2024-07-23 18:24 | NUR ---
SHIFT SUMMARY PT DID WELL THIS SHIFT. PT HAS REMAINED AWAKE AND ALERT MOST OF THIS SHIFT. PT ANSWERS MOST QUESTIONS APPROPRIATELY, BUT IS FORGETFUL AT TIMES. PT HAS DENIED PAIN OR DISCOMFORT AT REST. VITAL SIGNS HAVE REMAINED STABLE. PT ON 2L O2 NC. LEVOPHED TITRATED OFF THIS MORNING. CENTRAL LINE TO RIJ SALINE LOCKED. LARGE BORE CHEST TUBE TO RIGHT LATERAL SITE REMAINS C/D/I. CT SCAN DONE THIS AFTERNOON, CHEST TUBE WITHDRAWN BY DR JAVIER S/P CT. PT WITH SMALL AMOUNT OF BLOODY DRAINAGE VIA CHEST TUBE THIS SHIFT. NO AIRLEAK OR CREPITUS NOTED. SHAH TEMP PROBE REMAINS IN PLACE WITH YELLOW URINE OUTPUT NOTED. MEPILEX TO COCCYX REPLACED. PT WITH POOR APPETITE THIS SHIFT. MULTIPLE FAMILY MEMBERS IN AND OUT THROUGHOUT THE DAY. WILL CONTINUE TO MONITOR AND REPORT OFF TO ONCOMING RN.
--- NOTE | 2024-07-23 20:00 | NUR ---
ASSESSMENT/ASSUMED CARE PT SITTING UP IN BED TALKING WITH FAMILY. LAURA AT BEDSIDE. PT A&O X4. FOLLOWING INSTRUCTIONS. DENIES PAIN OR DISCOMFORT. LUNGS CLEAR TO UPPER LOBES AND COARSE/DECREASED IN THE BASES ON 2 LITER O2 VIA NC. RESP EVEN AND NONLABORED. DENIES SOB. OCC NONPRODUCTIVE COUGH NOTED. PT STATES," I'VE HAD THE COUGH SINCE APRIL". CHEST TUBE TO RIGHT LATERAL CHEST WITH SERGUINOUS FLUID IN TUBE. SUCTION TO -20. TAPE REINFORCED. HEART RATE REGULAR IN THE 70-80'S. BP STABLE OFF LEVOPHED. 2+ PITTING LOWER EXT EDEMA BILAT. SCD'S ON. BT+ ABD SOFT AND NONTENDER. FAMILY BROUGHT IN SOUP FOR PT, SHE ATE ABOUT 25%. POOR APPETITE. CENTRAL LINE TO RIGHT IJ SALINE LOCKED. SITE CLEAR AND DRSG INTACT. POWER GLIDE TO LEFT UPPER ARM SALINE LOCKED. SITE CLEAR AND DRSG INTACT. SHAH CATH PATENT DRAINING YELLOW URINE. COCCYX DRSG CD&I. POSSIBLE TRANSFER TO [facility], AWAITING BED. CONT TO MONITOR.
--- NOTE | 2024-07-23 22:54 | NUR ---
REPORT CALLED TO GEMMA HART RN. PT TO TRANSFER FOR [facility]ATS. AWAITING TRANSPORT.
--- NOTE | 2024-07-23 23:36 | NUR ---
TRANSFER TO [facility]. PT TRANSFERED TO [facility] AND PLACED ON CARDIAC MONITORING. LEVOPHED AND NS PLACED ON HOLD, BUT SENT WITH AMBULANCE. CHEST TUBE TO WATER SEAL WHILE TRANSFERED TO AMBULANCE. AT BEDSIDE
== END 2024-07-23 23:30 | disposition short-term general hospital (02) | DRG 291 ==
LOC: ER 16:37 → PCU 19:54 → MEDS 19:54 → ICUE 19:54 → PCU 21:12 → MEDS 07-18 11:33 → ENPENDDIS 07-22 16:57 → ICUE 07-22 17:32
PROVIDERS: Family Medicine; Internal Medicine; Nurse Practitioner Acute Care; Student in an Organized Health Care Education/Training Program; ADMIT Internal Medicine
PROC: 0W993ZZ Drainage of Right Pleural Cavity, Percutaneous Approach (ICD-10-PCS; principal; 2024-07-22)
PROC: 02HV33Z Insertion of Infusion Device into Superior Vena Cava, Percutaneous Approach (ICD-10-PCS; 2024-07-22)
PROC: 30243K1 Transfusion of Nonautologous Frozen Plasma into Central Vein, Percutaneous Approach (ICD-10-PCS; 2024-07-22)
PROC: 30243R1 Transfusion of Nonautologous Platelets into Central Vein, Percutaneous Approach (ICD-10-PCS; 2024-07-22)
PROC: 30243N1 Transfusion of Nonautologous Red Blood Cells into Central Vein, Percutaneous Approach (ICD-10-PCS; 2024-07-22)
PROC: 3E043XZ Introduction of Vasopressor into Central Vein, Percutaneous Approach (ICD-10-PCS; 2024-07-22)
DX: I13.0 Hypertensive heart and chronic kidney disease with heart failure and stage 1 through stage 4 chronic kidney disease, or unspecified chronic kidney disease (principal); I50.43 Acute on chronic combined systolic (congestive) and diastolic (congestive) heart failure; R57.8 Other shock; J91.8 Pleural effusion in other conditions classified elsewhere; J94.2 Hemothorax; N17.9 Acute kidney failure, unspecified; E87.1 Hypo-osmolality and hyponatremia; E87.6 Hypokalemia; I35.0 Nonrheumatic aortic (valve) stenosis; N18.31 Chronic kidney disease, stage 3a; E03.9 Hypothyroidism, unspecified; J44.9 Chronic obstructive pulmonary disease, unspecified; K21.9 Gastro-esophageal reflux disease without esophagitis; E11.22 Type 2 diabetes mellitus with diabetic chronic kidney disease; D63.1 Anemia in chronic kidney disease; D50.9 Iron deficiency anemia, unspecified; M81.0 Age-related osteoporosis without current pathological fracture; H40.9 Unspecified glaucoma; R09.89 Other specified symptoms and signs involving the circulatory and respiratory systems; I25.2 Old myocardial infarction; I25.10 Atherosclerotic heart disease of native coronary artery without angina pectoris; Z95.5 Presence of coronary angioplasty implant and graft; I95.9 Hypotension, unspecified; Z79.82 Long term (current) use of aspirin; Z79.02 Long term (current) use of antithrombotics/antiplatelets; Z88.8 Allergy status to other drugs, medicaments and biological substances; Z79.899 Other long term (current) drug therapy; Z79.84 Long term (current) use of oral hypoglycemic drugs; Z79.890 Hormone replacement therapy; Z85.3 Personal history of malignant neoplasm of breast; Z87.01 Personal history of pneumonia (recurrent); Z86.73 Personal history of transient ischemic attack (TIA), and cerebral infarction without residual deficits; Z98.890 Other specified postprocedural states; Z85.118 Personal history of other malignant neoplasm of bronchus and lung; Z92.21 Personal history of antineoplastic chemotherapy; Z92.3 Personal history of irradiation; Z87.891 Personal history of nicotine dependence
CPT/HCPCS: 32551; 32555; 36415; 36430; 36556; 51702; 71045; 71046; 71250; 71275; 76937; 80048; 80053; 82330; 82803; 82947; 83605; 83735; 83880; 84100; 84132; 84484; 85014; 85018; 85025; 85610; 85730; 86850; 86900; 86901; 86923; 92610; 92950; 93005; 93010; 94760; 94762; 96374; 97110; 97116; 97162; 97165; 97530; 97535; 99284-25; A9270; C1751; C1760; C1769; C1887; C1894; J0461; J0612; J1265; J1644; J1940; J2003; J2405; J2470; J3010; J3480; J7030; J7040; J7050; J7060; P9016; P9035; P9059; Q9967

== ENCOUNTER → 2024-07-14 | Outpatient (CLI) | payer MEDICARE, BC ==
[~2024-07-14] MED LIST changes: +Bisoprolol Fumar5 MG PO
[2024-07-14 14:23] LABS: BASOPHILS ABSOLUTE AUTO 0.01 K/mm3 (0.00-0.23); BASOPHILS PERCENT AUTO 0 % (0-2); EOSINOPHILS ABSOLUTE AUTO 0.06 K/mm3 (0.00-0.68); EOSINOPHILS PERCENT AUTO 1 % (0-6); Hematocrit 38.8 % (33.0-51.0); Hemoglobin 11.6 g/dL (11.5-16.0); IMMATURE GRAN ABSOLUTE AUTO 0.04 K/mm3 (0.00-0.10); IMMATURE GRAN PERCENT AUTO 1 % (0-1); LYMPHOCYTES ABSOLUTE AUTO 0.87 K/mm3 (0.84-5.20); LYMPHOCYTES PERCENT AUTO 10 % (21-46); MONOCYTES ABSOLUTE AUTO 0.55 K/mm3 (0.16-1.47); MONOCYTES PERCENT AUTO 6 % (4-13); Mean Corpuscular HGB 23.8 pg (26.0-34.0); Mean Corpuscular HGB Conc 29.9 g/dL (31.5-36.5); Mean Corpuscular Volume 80 fL (80-100); Mean Platelet Volume 9.5 fL (9.1-12.4); NEUTROPHILS ABSOLUTE AUTO 7.01 K/mm3 (1.96-9.15); NEUTROPHILS PERCENT AUTO 82 % (41-73); Platelet Count 380 K/mm3 (150-400); RDW Coefficient Variation 17.7 % (11.7-14.2); RDW Standard Deviation 49.9 fL (35.1-46.3); Red Blood Cell Count 4.88 M/mm3 (3.80-5.20); White Blood Cell Count 8.54 K/mm3 (4.00-11.30)
[2024-07-14 14:27] LABS: Albumin, Blood 2.9 g/dL (3.4-5.0); Albumin/Globulin Ratio 0.5 (0.8-1.8); Bilirubin, Total 0.4 mg/dL (0.1-1.0); Bun/Creatinine Ratio 16.4 (12.0-20.0); Creatinine, Blood 1.89 mg/dL (0.40-1.00); Globulin, Blood 5.4 g/dL (2.2-4.0); Potassium, Blood 3.9 mmol/L (3.5-5.5); Total Protein, Blood 8.3 g/dL (6.4-8.2)
== END ==
LOC: LAB 14:08 → LAB SHORT 14:08
PROVIDERS: Family Medicine
DX: R09.89 Other specified symptoms and signs involving the circulatory and respiratory systems (principal)
CPT/HCPCS: 80053; 83880; 85025

== ENCOUNTER 2024-09-10 19:00 | Inpatient (IN) | payer MEDICARE, BC ==
[~2024-09-10] VITALS: Ht 165.1 cm; Wt 56.5 kg
[~2024-09-10 19:00] MED LIST changes: +Bisoprolol Fumar5 MG PO
[2024-09-10 19:44] LABS: BASOPHILS ABSOLUTE AUTO 0.03 K/mm3 (0.00-0.23); BASOPHILS PERCENT AUTO 0 % (0-2); EOSINOPHILS ABSOLUTE AUTO 0.03 K/mm3 (0.00-0.68); EOSINOPHILS PERCENT AUTO 0 % (0-6); Hematocrit 33.3 % (33.0-51.0); Hemoglobin 10.3 g/dL (11.5-16.0); IMMATURE GRAN PERCENT AUTO 1 % (0-1); LYMPHOCYTES ABSOLUTE AUTO 0.75 K/mm3 (0.84-5.20); LYMPHOCYTES PERCENT AUTO 5 % (21-46); MONOCYTES ABSOLUTE AUTO 0.72 K/mm3 (0.16-1.47); MONOCYTES PERCENT AUTO 5 % (4-13); Mean Corpuscular HGB 27.6 pg (26.0-34.0); Mean Corpuscular HGB Conc 30.9 g/dL (31.5-36.5); Mean Corpuscular Volume 89 fL (80-100); Mean Platelet Volume 9.3 fL (9.1-12.4); NEUTROPHILS ABSOLUTE AUTO 12.61 K/mm3 (1.96-9.15); NEUTROPHILS PERCENT AUTO 89 % (41-73); Platelet Count 337 K/mm3 (150-400); RDW Coefficient Variation 22.6 % (11.7-14.2); Red Blood Cell Count 3.73 M/mm3 (3.80-5.20); White Blood Cell Count 14.24 K/mm3 (4.00-11.30)
[2024-09-10 20:05] LABS: Albumin, Blood 1.8 g/dL (3.4-5.0); Albumin/Globulin Ratio 0.4 (0.8-1.8); Bilirubin, Total 0.3 mg/dL (0.1-1.0); Bun/Creatinine Ratio 29.4 (12.0-20.0); Calcium, Blood 8.9 mg/dL (8.5-10.1); Creatinine, Blood 1.19 mg/dL (0.40-1.00); Potassium, Blood 3.3 mmol/L (3.5-5.5); Total Protein, Blood 6.8 g/dL (6.4-8.2)
[2024-09-10] MEDS ORDERED: Cefepime HCl 1,000 MG in NS 100 ML IV ONE (21:25)
[2024-09-10] MEDS ORDERED: Vancomycin HCL 1,250 MG in NS 250 ML IV ONE (21:40)
[2024-09-10] MEDS ORDERED: FOLI1 PO (22:38)
[2024-09-10] MEDS ORDERED: BUME1 PO (22:39)
[2024-09-11 00:14] VITALS: BP 136/74
[2024-09-11] MEDS ORDERED: SENN187 PO (01:10)
[2024-09-11] MEDS ORDERED: IBUP400 PO (01:14)
[2024-09-11] MEDS ORDERED: ACET325 PO (01:14)
[2024-09-11] MEDS ORDERED: MIRALAX17 GM PO (01:17)
[2024-09-11] MEDS ORDERED: NS 250 ML IV PRN (01:30)
[2024-09-11] MEDS ORDERED: Acetaminophen 325 MG TABLET PO PRN (02:05)
[2024-09-11] MEDS ORDERED: Potassium Chloride 40 MEQ in NS 250 ML IV ONE (02:30)
[2024-09-11 04:24] LABS: Source, Urine Straight Cath
[2024-09-11 04:36] LABS: Bilirubin, Urine Neg (Neg); Blood, Urine Neg (Neg); Glucose Qualitative, Urine 4+ (Neg); Ketones, Urine Neg (Neg); Leukocyte Esterase, Urine 1+ (Neg); Nitrite, Urine Neg (Neg); Protein, Urine 2+ (Neg); Urobilinogen, Urine NORM (Normal); pH, Urine 6.5 (5.0-8.0)
[2024-09-11 04:42] LABS: Appearance, Urine Clear (Clear); Color, Urine Pale Yellow (P-Yellow)
[2024-09-11 04:43] LABS: Bacteria Mod /hpf; Red Blood Cells, Urine 0-2 /hpf (0-2); Squamous Epithelial Cells Many /hpf (Few)
[2024-09-11] MEDS ORDERED: CefTRIAXone Sodium 1,000 MG in NS 100 ML IV SCH (06:00)
[2024-09-11] MEDS ORDERED: HYDROmorphone HCl/Pf 1MG SYR IV ONE (06:10)
--- NOTE | 2024-09-11 06:21 | NUR ---
SHIFT SUMMARY PT ARRIVED FROM ER AROUND 2350. ORIENTED TO ROOM. AT BEDSIDE T/O NIGHT. PT A&Ox1. PLEASANTLY CONFUSED. PT DID HAVE SOME HALLUCINATIONS, TALKING TO DIFFERENT UNSEEN PEPOLE AND ALSO STATED SHE SAW RATS IN THE ROOM. PT ALSO VERY PAINFUL D/T RADIATION TX AND OLD HIP FX. MEDICATED PER EMAR WITHOUT EFFECT. RESIDENT CALLED AND STATED SHE WOULD PUT A PAIN MED ORDER IN. PRESSURE ULCER ON COCCYX THAT SAID HAS BEEN THERE FOR A COUPLE MONTHS. PIC IN CHART AND FOAM DRESSING IN PLACE. NOTIFIED. YE PLACED D/T PT BEING VERY PAINFUL WITH TURNS, MOANING AND GRIMACING. PT STRAIGHT CATHED AND UA SENT TO LAB AROUND 0400. IV POTASSIUM CHLORIDE INFUSING AND PT RECIEVING IV ABX. SCD's IN PLACE. HOME MED EYE DROPS IN PT's LOCKED DRAWER. VSS. BED IN LOWEST POSITION AND CALL LIGHT IN REACH.
[2024-09-11] MEDS ORDERED: ZINC OXIDE/PETROLATUM, YELLOW 1 APPLIC/71 GM PASTE TOP PRN (07:15)
[2024-09-11 07:24] LABS: BASOPHILS ABSOLUTE AUTO 0.02 K/mm3 (0.00-0.23); BASOPHILS PERCENT AUTO 0 % (0-2); EOSINOPHILS PERCENT AUTO 1 % (0-6); Hematocrit 35.6 % (33.0-51.0); Hemoglobin 10.8 g/dL (11.5-16.0); IMMATURE GRAN ABSOLUTE AUTO 0.13 K/mm3 (0.00-0.10); IMMATURE GRAN PERCENT AUTO 1 % (0-1); LYMPHOCYTES PERCENT AUTO 6 % (21-46); MONOCYTES ABSOLUTE AUTO 0.75 K/mm3 (0.16-1.47); MONOCYTES PERCENT AUTO 5 % (4-13); Mean Corpuscular HGB 27.7 pg (26.0-34.0); Mean Corpuscular HGB Conc 30.3 g/dL (31.5-36.5); Mean Corpuscular Volume 91 fL (80-100); NEUTROPHILS ABSOLUTE AUTO 14.32 K/mm3 (1.96-9.15); NEUTROPHILS PERCENT AUTO 88 % (41-73); Platelet Count 354 K/mm3 (150-400); RDW Coefficient Variation 22.8 % (11.7-14.2); RDW Standard Deviation 75.1 fL (35.1-46.3); White Blood Cell Count 16.22 K/mm3 (4.00-11.30)
[2024-09-11 07:37] VITALS: BP 141/81
[2024-09-11 07:47] LABS: Albumin, Blood 1.8 g/dL (3.4-5.0); Albumin/Globulin Ratio 0.3 (0.8-1.8); Bilirubin, Total 0.4 mg/dL (0.1-1.0); Bun/Creatinine Ratio 30.8 (12.0-20.0); Calcium, Blood 8.8 mg/dL (8.5-10.1); Creatinine, Blood 1.07 mg/dL (0.40-1.00); Globulin, Blood 5.4 g/dL (2.2-4.0); Potassium, Blood 3.5 mmol/L (3.5-5.5); Total Protein, Blood 7.2 g/dL (6.4-8.2)
[2024-09-11] MEDS ORDERED: Misc. Opth BOTHEYES SCH (09:00)
[2024-09-11] MEDS ORDERED: Enoxaparin 40 MG/0.4 ML SYR SC SCH (09:00)
[2024-09-11] MEDS ORDERED: Azithromycin 250 MG Tab PO SCH (09:00)
[2024-09-11] MEDS ORDERED: Polyethylene Glycol 3350 17 gm PO PRN (10:45)
[2024-09-11] MEDS ORDERED: Meropenem 1,000 MG in NS 100 ML IV SCH (10:55)
[2024-09-11] MEDS ORDERED: TraMADol HCl 50 MG Tab PO PRN (13:30)
--- NOTE | 2024-09-11 18:39 | NUR ---
ASSUMED CARE OF PT PT IS A/O X2-3 DIFFICULT TO ASSESS MENTATION AT BEDSIDE STATED SHE HAS BEEN YELLING OUT FOR SEVERAL MONTHS NOW, AFTER HER PREVIOUS MEDICAL ISSUES. PT CURRENTLY IS AWAKE AND ALERT BUT QUICKLY FALLS ASLEEP AND INTO CRYING OUT FOR FAMILY MEMEBERS THAT HAVE , AGAIN STATES THIS IS WHAT SHE DOES AND HE DOESNT KNOW WHAT TO DO. VSS, PURWIC IN PLACE WITH MINIMAL OUTPUT, WHEN BLADDERSCAN WAS DONE PT URINATED ABOUT 300MLS, SCAN SHOWED >100ML. PT REPOSTIONED EVERY 2 HOURS, PAIN MEDICATION GIVEN WITH LITTLE EFFECT.
[2024-09-11 19:33] VITALS: BP 137/89
[2024-09-11] MEDS ORDERED: Lactobacil 2-S.Thermo-Bifido 1 1 Cap PO SCH (21:00)
[2024-09-11] MEDS ORDERED: Brimonidine Tartrate 0.2% Opth 5 ml BOTHEYES SCH (21:00)
[2024-09-11] MEDS ORDERED: Sennosides 8.6 MG Tab PO SCH (21:00)
[2024-09-11] MEDS ORDERED: Dorzolamide 2% Opth Soln BOTHEYES SCH (21:00)
[2024-09-12] MEDS ORDERED: FentaNYL Citrate 50 MCG/ML 2 ML Injection IV PRN (01:35)
[2024-09-12 05:00] VITALS: BP 109/89
--- NOTE | 2024-09-12 05:10 | NUR ---
SHIFT SUMMARY FRANKLIN WAS ALERT AND ORIENTED TO SELF AND HER THIS SHIFT. PT RESTLESS T/O NIGHT WITH SOME INTERMITTENT SLEEP. PT AT BEDSIDE T/O SHIFT. PT DIFFICULT TO DIRECT. PT WAS APPEARING PAINFUL, ATTEMPTED CRUSHED ORAL MEDS IN APPLESAUCE, PT NOT COOPERATIVE WITH PO INTAKE. DR CHEUNG CONTACTED, ORDERS RECIEVED FOR IV PAIN MANAGEMENT. PT CALLS OUT T/O NIGHT EVEN WHEN SHE DOES NOT APPEAR IN PAIN. PT PROFOUNDLY CONFUSED. NO ACUTE EVENTS THIS SHIFT. PT CONDITION APPEARS UNCHANGED THIS SHIFT.
[2024-09-12] MEDS ORDERED: Pantoprazole Sodium 40 MG Tab PO SCH (06:00)
[2024-09-12] MEDS ORDERED: Levothyroxine Sodium 0.075 MG Tab PO SCH (06:00)
[2024-09-12 07:09] VITALS: BP 142/67
[2024-09-12 07:52] LABS: BASOPHILS ABSOLUTE AUTO 0.02 K/mm3 (0.00-0.23); BASOPHILS PERCENT AUTO 0 % (0-2); EOSINOPHILS ABSOLUTE AUTO 0.01 K/mm3 (0.00-0.68); EOSINOPHILS PERCENT AUTO 0 % (0-6); Hematocrit 32.5 % (33.0-51.0); IMMATURE GRAN ABSOLUTE AUTO 0.24 K/mm3 (0.00-0.10); IMMATURE GRAN PERCENT AUTO 2 % (0-1); LYMPHOCYTES ABSOLUTE AUTO 0.66 K/mm3 (0.84-5.20); LYMPHOCYTES PERCENT AUTO 4 % (21-46); MONOCYTES ABSOLUTE AUTO 0.51 K/mm3 (0.16-1.47); MONOCYTES PERCENT AUTO 3 % (4-13); Mean Corpuscular HGB 27.8 pg (26.0-34.0); Mean Corpuscular HGB Conc 30.8 g/dL (31.5-36.5); Mean Corpuscular Volume 90 fL (80-100); Mean Platelet Volume 9.7 fL (9.1-12.4); NEUTROPHILS ABSOLUTE AUTO 14.22 K/mm3 (1.96-9.15); NEUTROPHILS PERCENT AUTO 91 % (41-73); Platelet Count 327 K/mm3 (150-400); RDW Coefficient Variation 22.9 % (11.7-14.2); RDW Standard Deviation 75.4 fL (35.1-46.3); White Blood Cell Count 15.66 K/mm3 (4.00-11.30)
[2024-09-12 07:54] LABS: Bun/Creatinine Ratio 24.5 (12.0-20.0); Calcium, Blood 8.6 mg/dL (8.5-10.1); Creatinine, Blood 1.02 mg/dL (0.40-1.00); Potassium, Blood 3.2 mmol/L (3.5-5.5)
[2024-09-12] MEDS ORDERED: Aspirin 81 MG TabEC PO SCH (09:00)
[2024-09-12] MEDS ORDERED: Furosemide 10 MG/ML 4ML Vial IV SCH (09:00)
[2024-09-12] MEDS ORDERED: Potassium Chloride 20 MEQ TabCR PO SCH (09:00)
[2024-09-12] MEDS ORDERED: Metoprolol Succinate 50 MG TABCR PO SCH (09:00)
[2024-09-12] MEDS ORDERED: Folic Acid 1 MG TAB PO SCH (09:00)
[2024-09-12] MEDS ORDERED: Empagliflozin 10 MG TAB PO SCH (09:00)
[2024-09-12 15:51] VITALS: BP 131/73
--- NOTE | 2024-09-12 16:19 | NUR ---
ASSUMED CARE OF PT UNEVENTFUL DAY FOR PT NO SIGNIFICANT CHANGE FROM PREVIOUS 2 DAYS, PT CRYING OUT WHENEVER SHE IS AWAKE, RESPONDED YES TO BEING IN PAIN BUT COULDNT PINPOINT WHERE, PT REPOSITIONED Q2 HOURS BECAUSE OF BED SORES, PT CALMS AND SLEEPS AFTER SHE IS TURNED. AT BEDSIDE ASSISTING WITH CARE AND HAS AGREED FOR US TO STAY ON TOP OF PAIN MEDICATION FOR PT PAIN.
--- NOTE | 2024-09-12 18:06 | NUR ---
CASE CONFERENCE: Met with pt's today, he continues to pursue full treatment for pt at this time. We did discuss some of the mental and physical changes the patient has been experiencing, including pain and confusion. Pt's states he just needs a little bit more time to see if her health will improve. Gently reminded him that she is declining more than when she was last in the hospital, and that she still has lung cancer diagnosis. He states he's "Hoping for a miracle." Plan to continue therapeutic listening with pt's as he allows.
[2024-09-12 20:08] VITALS: BP 131/62
[2024-09-13 03:59] VITALS: BP 142/75
--- NOTE | 2024-09-13 04:32 | NUR ---
SHIFT SUMMARY PATIENT HALLUCINATING MORE THAN LAST NOC SHIFT. ALERT TO SELF AND . STAYS AT BEDSIDE OVERNIGHT. SISTER IN FOR A VISIT FROM OUT OF TOWN STAYING IN ROOM. NO S/X OF CHEST PAIN, SOB, AND N/V. VSS/AFEBRILE. REPORTS GENERALIZED PAIN AND ULTRAM 50 MG GIVEN PER EMAR. TAKES MEDS CRUSHED IN APPLE SAUCE. PUREWICK IN PLACE. PIV INTACT. IV ABX INFUSED. CALL LIGHT IN REACH. BED IN LOWEST POSITION. WILL CONTINUE TO MONITOR UNTIL DAY SHIFT NURSE ASSUMES CARE.
[2024-09-13 07:04] VITALS: BP 138/66
[2024-09-13 08:35] LABS: BASOPHILS ABSOLUTE AUTO 0.03 K/mm3 (0.00-0.23); BASOPHILS PERCENT AUTO 0 % (0-2); EOSINOPHILS ABSOLUTE AUTO 0.01 K/mm3 (0.00-0.68); EOSINOPHILS PERCENT AUTO 0 % (0-6); Hematocrit 35.9 % (33.0-51.0); Hemoglobin 10.8 g/dL (11.5-16.0); IMMATURE GRAN ABSOLUTE AUTO 0.18 K/mm3 (0.00-0.10); IMMATURE GRAN PERCENT AUTO 1 % (0-1); LYMPHOCYTES ABSOLUTE AUTO 0.81 K/mm3 (0.84-5.20); LYMPHOCYTES PERCENT AUTO 5 % (21-46); MONOCYTES ABSOLUTE AUTO 0.49 K/mm3 (0.16-1.47); MONOCYTES PERCENT AUTO 3 % (4-13); Mean Corpuscular HGB 27.4 pg (26.0-34.0); Mean Corpuscular HGB Conc 30.1 g/dL (31.5-36.5); Mean Corpuscular Volume 91 fL (80-100); Mean Platelet Volume 9.7 fL (9.1-12.4); NEUTROPHILS ABSOLUTE AUTO 14.28 K/mm3 (1.96-9.15); NEUTROPHILS PERCENT AUTO 90 % (41-73); Platelet Count 339 K/mm3 (150-400); RDW Coefficient Variation 23.3 % (11.7-14.2); RDW Standard Deviation 77.3 fL (35.1-46.3); Red Blood Cell Count 3.94 M/mm3 (3.80-5.20)
[2024-09-13 08:54] LABS: Bun/Creatinine Ratio 23.4 (12.0-20.0); Calcium, Blood 8.8 mg/dL (8.5-10.1); Creatinine, Blood 0.94 mg/dL (0.40-1.00); Potassium, Blood 3.4 mmol/L (3.5-5.5)
[2024-09-13] MEDS ORDERED: LevoFLOXacin 750 MG Tab PO SCH (13:00)
--- NOTE | 2024-09-13 19:22 | NUR ---
assumed care or pt. pt is doing much better today more talkative and able to answer questions appropriatly. PT work with pt today in bed and pt was able to follow directions well. pt is still crying out for passed family but less today. cont turns q2 hours because of pt poor skin intergity.
--- NOTE | 2024-09-13 19:27 | NUR ---
pt more and more talkative and asked if i would get her to a chair. pt was a full transfer assist to chair and was able to gurjit 1.5 hours before assisting to the commode. pt now back in bed feels very comfortable and currently has no complaints of pain. earlier i spoke with about code status so information is at bedside for to go over. did not feel like his would want to be kept on life support but its something he is currently thinking over.
--- NOTE | 2024-09-14 00:48 | NUR ---
PATIENT REFUSING PAIN MEDICATION TYLENOL AND ULTRAM WHEN ASKED SINCE START OF SHIFT. REPOSITIONED PER PATIENT REQUEST. SPOUSE PRESENT IN ROOM. TM.
--- NOTE | 2024-09-14 04:03 | NUR ---
SHIFT SUMMARY PATIENT CONTINUES TO HAVE HALLUCINATIONS T/O SHIFT. MANAGER HEALTH REPORTS PATIENT THINKS SHE IS A DIFFERENT FAMILY MEMBER EACH TIMES SHE COMES IN ROOM. REFUSED PAIN MEDICATION MULTIPLE TIMES AND LATER REQUESTED TYLENOL FOR NECK PAIN X ONE. SPOUSE PRESENT AND STAYS THE NIGHT. AXOX 2 AND BEDREST. PIV INTACT. PUREWICK IN PLACE. DENIES CHEST PAIN, SOB, AND N/V. CALL LIGHT IN REACH. BED IN LOWEST POSITION. WILL CONTINUE TO MONITOR UNTIL DAY SHIFT NURSE ASSUMES CARE.
[2024-09-14 05:19] VITALS: BP 135/71
[2024-09-14 05:54] LABS: BASOPHILS ABSOLUTE AUTO 0.03 K/mm3 (0.00-0.23); BASOPHILS PERCENT AUTO 0 % (0-2); EOSINOPHILS ABSOLUTE AUTO 0.03 K/mm3 (0.00-0.68); EOSINOPHILS PERCENT AUTO 0 % (0-6); Hematocrit 33.4 % (33.0-51.0); Hemoglobin 10.1 g/dL (11.5-16.0); IMMATURE GRAN ABSOLUTE AUTO 0.23 K/mm3 (0.00-0.10); IMMATURE GRAN PERCENT AUTO 2 % (0-1); LYMPHOCYTES PERCENT AUTO 5 % (21-46); MONOCYTES ABSOLUTE AUTO 0.65 K/mm3 (0.16-1.47); MONOCYTES PERCENT AUTO 4 % (4-13); Mean Corpuscular HGB 27.7 pg (26.0-34.0); Mean Corpuscular HGB Conc 30.2 g/dL (31.5-36.5); Mean Corpuscular Volume 92 fL (80-100); Mean Platelet Volume 9.3 fL (9.1-12.4); NEUTROPHILS ABSOLUTE AUTO 13.66 K/mm3 (1.96-9.15); NEUTROPHILS PERCENT AUTO 89 % (41-73); Platelet Count 352 K/mm3 (150-400); RDW Coefficient Variation 22.9 % (11.7-14.2); RDW Standard Deviation 76.4 fL (35.1-46.3); Red Blood Cell Count 3.65 M/mm3 (3.80-5.20)
[2024-09-14 06:26] LABS: Bun/Creatinine Ratio 20.4 (12.0-20.0); Creatinine, Blood 0.93 mg/dL (0.40-1.00); Potassium, Blood 2.9 mmol/L (3.5-5.5)
[2024-09-14 07:06] VITALS: BP 133/62
[2024-09-14] MEDS ORDERED: Sennosides 8.6 MG Tab PO PRN (10:33)
[2024-09-14 15:24] VITALS: BP 132/58
--- NOTE | 2024-09-14 18:23 | NUR ---
SHIFT SUMMARY PT VERY ALERT EARLY THIS MORNING FOR APPROX 2 HOURS, PT THEN FELL ASLEEP AND WAS DIFFICULTY TO AROUSE UNTIL APPROX 1630 TODAY. PT WAS UNABLE TO PARTICIPATE IN THERAPY BECAUSE OF HER SEDATION. PT VERY PAINFUL WHEN AWAKE. EVEN WHEN SLEEPING, SHE HAS FACIAL GRIMANCES. PT REPOSITIONED Q2H TODAY. LOOSE STOOLS REORTED TO DR. VERGARA TODAY AND ORDER WAS CHANGED FROM SCHEDULED TO PRN. PT REQUESTING TO GET UP OOB THIS AM, BUT THEN WAS TOO TIRED AND WEAK TO ATTEMPT GETTING OOB LATER THIS SHIFT. NO OTHER ACUTE CHANGES IN ASSESSMENT AT THIS TIME. VS REVIEWED. BED ALARM IN PLACE. AT BEDSIDE MOST OF THE SHIFT.
[2024-09-14 19:50] VITALS: BP 127/63
[2024-09-15 04:11] VITALS: BP 142/65
--- NOTE | 2024-09-15 04:48 | NUR ---
SHIFT SUMMARY PT HAS BEEN RESTING IN BED COMFORTABLY OVERNIGHT. SHE HAS BEEN AOX2-3, EXPERIENCING EPISODES OF CONFUSION AND HALLUCINATIONS. PT HAS AT BEDSIDE, WHO IS ATTENTIVE TO PT'S NEEDS, HOWEVER PT IS ABLE TO MAKE NEEDS KNOWN. SHE DOES NOT USE THE CALL LIGHT. PT HAS BEEN COMPLAINING OF PAIN AND DISCOMFORT OCCASIONALLY OVERNIGHT. IT HAS BEEN REMEDIED WITH REST, REPOSITIONING, AND MEDICATIONS. PT HAS BEEN BEDREST, 2PA W/ TURNS. SHE HAS BEEN CONNECTED TO [employer] Software[employer] SYSTEM. SHE HAS BEEN TOTAL CARE W/ TOILETING. NO COMPLAINTS FROM PT AND NO ACUTE EVENTS OVERNIGHT.
[2024-09-15 05:16] LABS: BASOPHILS ABSOLUTE AUTO 0.01 K/mm3 (0.00-0.23); BASOPHILS PERCENT AUTO 0 % (0-2); EOSINOPHILS ABSOLUTE AUTO 0.04 K/mm3 (0.00-0.68); EOSINOPHILS PERCENT AUTO 0 % (0-6); Hematocrit 32.1 % (33.0-51.0); Hemoglobin 9.9 g/dL (11.5-16.0); IMMATURE GRAN ABSOLUTE AUTO 0.16 K/mm3 (0.00-0.10); IMMATURE GRAN PERCENT AUTO 1 % (0-1); LYMPHOCYTES ABSOLUTE AUTO 0.94 K/mm3 (0.84-5.20); LYMPHOCYTES PERCENT AUTO 7 % (21-46); MONOCYTES ABSOLUTE AUTO 0.71 K/mm3 (0.16-1.47); MONOCYTES PERCENT AUTO 6 % (4-13); Mean Corpuscular HGB Conc 30.8 g/dL (31.5-36.5); Mean Corpuscular Volume 91 fL (80-100); Mean Platelet Volume 9.7 fL (9.1-12.4); NEUTROPHILS ABSOLUTE AUTO 10.86 K/mm3 (1.96-9.15); NEUTROPHILS PERCENT AUTO 85 % (41-73); Platelet Count 351 K/mm3 (150-400); RDW Standard Deviation 76.5 fL (35.1-46.3); Red Blood Cell Count 3.53 M/mm3 (3.80-5.20); White Blood Cell Count 12.72 K/mm3 (4.00-11.30)
[2024-09-15 05:41] LABS: Albumin, Blood 1.6 g/dL (3.4-5.0); Albumin/Globulin Ratio 0.3 (0.8-1.8); Bilirubin, Total 0.4 mg/dL (0.1-1.0); Bun/Creatinine Ratio 17.2 (12.0-20.0); Calcium, Blood 9.2 mg/dL (8.5-10.1); Creatinine, Blood 0.99 mg/dL (0.40-1.00); Globulin, Blood 4.6 g/dL (2.2-4.0); Potassium, Blood 2.6 mmol/L (3.5-5.5); Total Protein, Blood 6.2 g/dL (6.4-8.2)
[2024-09-15 07:25] VITALS: BP 148/75
[2024-09-15] MEDS ORDERED: Potassium Chl 20MEQ/Water100ML 100 ML IV SCH (07:50)
[2024-09-15] MEDS ORDERED: Potassium Chloride 20 MEQ TabCR PO ONE (08:00)
[2024-09-15 15:40] LABS: Bun/Creatinine Ratio 17.1 (12.0-20.0); Calcium, Blood 9.2 mg/dL (8.5-10.1); Creatinine, Blood 0.94 mg/dL (0.40-1.00); Potassium, Blood 4.4 mmol/L (3.5-5.5)
[2024-09-15 16:11] VITALS: BP 147/80
--- NOTE | 2024-09-15 18:00 | NUR ---
PATIENT UP IN THE RECLINER FROM 0800 TO 1600, UP FOR MOST OF DAY PER DOC ORDER. K+ 2.2 WAS CORRECTED TO 4.4 WITH 60MEQ ORAL K+ AND 60MEQ IV K+. HER FUROSEMIDE WAS HELD TODAY DUE TO THE HYPOKALEMIA AND THIS RESULTED IN SWELLING IN B/L LE WITH 3+ PITTING EDEMA BY THE SHIFT END. PATIENT CONTINUED TO HAVE AVALOS AND WAS MANAGED PER EMR. SHE REFUSES NARCOTICS. PREFERS TO HANG ON TO FOOD THAT PATIENT DOES NOT EAT IN CASE SHE GETS HUNGRY AT NIGHT. SHE IS CURRENTLY RESTING IN BED IN SEMI-HADLEY, BED IS IN THE LOWEST POSITION, CALL LIGHT IS WITHIN REACH.
[2024-09-15 20:07] VITALS: BP 143/73
--- NOTE | 2024-09-16 03:17 | NUR ---
SEARCH ANALYST SUMMARY PT HAS BEEN RESTING IN BED COMFORTABLY OVERNIGHT. TURN SCHEDULE Q 2 HRS. . SHE HAS BEEN AOX2, EXPERIENCING INTERMITTENT EPISODES OF CONFUSION AND HALLUCINATIONS AND INTERMITTENTLY CALLING OUT VAROUS FAMILY NAMES. PT HAS AT BEDSIDE, WHO IS ATTENTIVE TO PT'S NEEDS, HOWEVER PT IS ABLE TO MAKE NEEDS KNOWN. SHE DOES NOT USE THE CALL LIGHT. PT MEDICATED X2 PER EMAR ORDERS FOR GERNERALIZED PAIN; EFFECTIVE. PT HAS BEEN BEDREST, 2PA W/ TURNS. PUREWICK IN PLACE, DRAINING YELLOW URINE. TOTAL CARE W/ TOILETING. NO ACUTE EVENTS OVERNIGHT. BED IN LOWEST POSITION. CARES ONGOING ORDERED.
[2024-09-16 04:58] VITALS: BP 138/70
[2024-09-16 05:03] LABS: BASOPHILS ABSOLUTE AUTO 0.03 K/mm3 (0.00-0.23); BASOPHILS PERCENT AUTO 0 % (0-2); EOSINOPHILS ABSOLUTE AUTO 0.03 K/mm3 (0.00-0.68); EOSINOPHILS PERCENT AUTO 0 % (0-6); Hematocrit 34.1 % (33.0-51.0); Hemoglobin 10.3 g/dL (11.5-16.0); IMMATURE GRAN ABSOLUTE AUTO 0.22 K/mm3 (0.00-0.10); IMMATURE GRAN PERCENT AUTO 1 % (0-1); LYMPHOCYTES ABSOLUTE AUTO 1.17 K/mm3 (0.84-5.20); LYMPHOCYTES PERCENT AUTO 7 % (21-46); MONOCYTES ABSOLUTE AUTO 0.86 K/mm3 (0.16-1.47); MONOCYTES PERCENT AUTO 5 % (4-13); Mean Corpuscular HGB 27.8 pg (26.0-34.0); Mean Corpuscular HGB Conc 30.2 g/dL (31.5-36.5); Mean Corpuscular Volume 92 fL (80-100); Mean Platelet Volume 9.2 fL (9.1-12.4); NEUTROPHILS ABSOLUTE AUTO 15.62 K/mm3 (1.96-9.15); NEUTROPHILS PERCENT AUTO 87 % (41-73); Platelet Count 324 K/mm3 (150-400); RDW Coefficient Variation 23.3 % (11.7-14.2); RDW Standard Deviation 78.1 fL (35.1-46.3); Red Blood Cell Count 3.71 M/mm3 (3.80-5.20); White Blood Cell Count 17.93 K/mm3 (4.00-11.30)
[2024-09-16 05:31] LABS: Bun/Creatinine Ratio 15.8 (12.0-20.0); Creatinine, Blood 0.95 mg/dL (0.40-1.00); Potassium, Blood 4.4 mmol/L (3.5-5.5)
[2024-09-16 07:34] VITALS: BP 142/78
[2024-09-16 11:49] LABS: Adenovirus F 40/41 Not Detected (NOT DETECT); Astrovirus Not Detected (NOT DETECT); Campylobacter Sp Not Detected (NOT DETECT); Cryptosporidium Not Detected (NOT DETECT); Cyclospora Cayetanensis Not Detected (NOT DETECT); E. Coli O157 Not Detected (NOT DETECT); Entamoeba Histolytica Not Detected (NOT DETECT); Enteroaggregative E. coli-EAEC Not Detected (NOT DETECT); Enteropathogenic E. coli-EPEC Not Detected (NOT DETECT); Enterotoxigenic E. coli-ETEC Not Detected (NOT DETECT); Giardia Lamblia Not Detected (NOT DETECT); Norovirus GI/GII Not Detected (NOT DETECT); Plesiomonas Shigelloides Not Detected (NOT DETECT); Rotavirus A Not Detected (NOT DETECT); Salmonella Sp Not Detected (NOT DETECT); Sapovirus Not Detected (NOT DETECT); Shiga Toxin-prod E. coli-STEC Not Detected (NOT DETECT); Shigella/Enteroin E. coli-EIEC Not Detected (NOT DETECT); Vibrio Cholerae Not Detected (NOT DETECT); Vibrio Sp Not Detected (NOT DETECT); Yersinia Enterocolitica Not Detected (NOT DETECT)
[2024-09-16 19:30] VITALS: BP 123/76
--- NOTE | 2024-09-16 20:28 | NUR ---
SUMMARY- PT ALERT TO SELF AND ; WHO IS AT HER BEDSIDE 99% OF THE TIME. INVOLVED/SUPPORTIVE IN PT CARE. PT IS DEPENDANT, TURNED Q2. PT IS INCONT/ PUREWICK USED HALF THE DAY. PT UP TO BSC ONCE THIS AM, HAD CLEAR MUCOID STOOL, APPROX 50ML. SENT SPEC TO BE TESTED, NEGATIVE FOR C-DIFF OR OTHER BACTERIUM. PT TOLERATING SIPS OF WATER AND BITES HERE/THERE. THIS AM CRYING AND SEVERELY PAINFUL AFTER WE MOVED HER, MEDICATED ONCE WITH FENT 50MG WITH GOOD EFFECT. THE REST OF THE DAY, PAIN CONTROLLED WITH ULTRAM. PT IS NOW DNR WITH LIMITD INTERVENTION. CT OF HEAD/CHEST/ABD COMPLETED PT IS REPORTING SUDDEN SHARP PAINS IN ABD. NO METS TO ABD. WILL CONT TO SOCO REPORTED TO NOC RN
[2024-09-17] VITALS (7 sets, daily range): BP systolic 78–147; BP diastolic 53–77
[2024-09-17 05:15] LABS: BASOPHILS ABSOLUTE AUTO 0.02 K/mm3 (0.00-0.23); BASOPHILS PERCENT AUTO 0 % (0-2); EOSINOPHILS ABSOLUTE AUTO 0.01 K/mm3 (0.00-0.68); EOSINOPHILS PERCENT AUTO 0 % (0-6); Hematocrit 30.1 % (33.0-51.0); Hemoglobin 9.3 g/dL (11.5-16.0); IMMATURE GRAN ABSOLUTE AUTO 0.25 K/mm3 (0.00-0.10); IMMATURE GRAN PERCENT AUTO 2 % (0-1); LYMPHOCYTES ABSOLUTE AUTO 0.88 K/mm3 (0.84-5.20); LYMPHOCYTES PERCENT AUTO 6 % (21-46); MONOCYTES ABSOLUTE AUTO 0.75 K/mm3 (0.16-1.47); MONOCYTES PERCENT AUTO 5 % (4-13); Mean Corpuscular HGB 27.6 pg (26.0-34.0); Mean Corpuscular HGB Conc 30.9 g/dL (31.5-36.5); Mean Corpuscular Volume 89 fL (80-100); Mean Platelet Volume 9.3 fL (9.1-12.4); NEUTROPHILS ABSOLUTE AUTO 13.43 K/mm3 (1.96-9.15); NEUTROPHILS PERCENT AUTO 88 % (41-73); Platelet Count 317 K/mm3 (150-400); RDW Coefficient Variation 23.1 % (11.7-14.2); RDW Standard Deviation 75.4 fL (35.1-46.3); Red Blood Cell Count 3.37 M/mm3 (3.80-5.20); White Blood Cell Count 15.34 K/mm3 (4.00-11.30)
[2024-09-17 05:37] LABS: Bun/Creatinine Ratio 13.9 (12.0-20.0); Calcium, Blood 9.5 mg/dL (8.5-10.1); Creatinine, Blood 1.01 mg/dL (0.40-1.00); Potassium, Blood 3.3 mmol/L (3.5-5.5)
--- NOTE | 2024-09-17 08:02 | NUR ---
MEDICAL REVIEW SPECIALIST SUMMARY: PT ALERT TO SELF AND . WHICH IS A CHANGE FROM YESTERDAY WHEN THIS NURSE HAD PATIENT. PT NOTED TO HAVE A CHANGE IN ABILITY TO HOLD SIMPLE CONVERSATION AND TO MAKE SIMPLE NEEDS KNOWN. PT OBSERVED TO BE CALLING OUT "OH GOD, OH OH OH." PT NOTED WITH S/S OF INCREASED PAIN SUCH CALLING OUT, GRIMACING, FIDGITING T/O SHIFT PT CALLING OUT AND MOANING. MEDICATED T/O SHIFT PER EMAR ORDERS; EFFECTIVE . THIS NURSE OBSERVED PT HAVING DIFFICULTY SWALLOWING CRUSHED TRAMADOL WITH APPLESAUCE WHEN BREAK NURSE WAS ADMINISTERING. PT ALSO NOTED TO HAVE DECREASED SWALLOW ABILITY; 0600 MEDS HELD FOR DAY SHIFT. DAY SHIFT RN INFORMED DURING SHIFT REPORT. PT RESTING COMFORTABLY AND SLEEPING T/O SHIFT AFTER MEDICATION ADMINISTRATION. PLAN IS TO D/C HOME WITH HSS. CALL LIGHT IN REACH, BUT PT DOES NOT USE. BED IN LOWEST POSITION. AT BEDSIDE AND USES CALL LIGHT. CARES ONGOING ORDERED. THIS NURSE HAD AN EXTENSIVE CONVERSATION WITH PT LIYAH ABOUT PT'S CARE AND PALLIATIVE CARE. LIYAH EXPRESSES THAT PT "DOES NOT WANT NARCOTIC PAIN MEDICATIONS, PALLIATIVE CARE, HOSPICE CARE, AND THAT THEY ARE PRAYING FOR A MIRACLE." THIS NURSE PROVIDED EDUCATION ON PALLIATIVE CARE, HOSPICE CARE AND CHANGES IN PT CONDITION THAT THIS NURSE OBSERVED OVER THE PAST 2 SHIFTS. EDUCATION OFFERED ON MEDICATION ADMINISTRATION AND SAFE SWALLOWING. LIYAH WAS RECEPTIVE AND VERBALIZED UNDERSTANDING. EDUCATION OFFERED ON PT RIGHTS REGARDING CARE. THIS NURSE SUGGESTED HAVING A PALLIATIVE CONSULT TO DISCUSS OPTIONS AVAILABLE FOR PT SYMPTOMS AND PAIN MANAGEMENT WELL WHAT D/C HOME LOOKS LIKE. LIYAH AGREEABLE TO HAVING PALLIATIVE CARE CONSULT. ABOVE INFORMATION RELAYED TO CERTIFIED HOME HEALTH AIDE AND DAY SHIFT RN IN REPORT.
[2024-09-17] MEDS ORDERED: Potassium Chl 20MEQ/Water100ML 100 ML IV STA (11:54)
[2024-09-17] MEDS ORDERED: Piperacillin/Tazobactam Sod 3.375 GM in NS 100 ML IV SCH (12:39)
[2024-09-17] MEDS ORDERED: Acetaminophen 650 MG Supp PR PRN (14:40)
[2024-09-17] MEDS ORDERED: Morphine Sulfate 20 MG/1ML 1 ML Oral Syringe PO PRN (14:40)
--- NOTE | 2024-09-17 14:41 | NUR ---
PT LYING SUPINE WITH ARMS CROSSED. FLACC SCALE 6/10. MOANING. FACE HAS A WAXY APPEARANCE. BLE/BUE COOL TO THE TOUCH. CAP REFILL >3 SECONDS. POOR TURGOR. SHE IS NOT VISUALLY TRACKING. RCV'D ORDERS FROM PROVIDER TO ADD ROXANOL AND RECTAL TYLENOL. PRIMARY RN AND STUDENT NURSE UPDATED.
--- NOTE | 2024-09-17 15:27 | NUR ---
PALLIATIVE ISSUES: SPOKE WITH DR VERGARA, MADE AWARE PT WAS UNABLE TO SWALLOW ANY MEDICATION THIS AM. NOT EATING OR DRINKING, DECREASE IN MENTATION, LESS RESPONSIVE. APPEARS IN PAIN FREQUENTLY, ESPECIALLY WITH MOVEMENT AEB GROANING, FREQ RESTLESS MOVEMENT OF ARMS AND LEGS, FIDGITY. FURROWED BROW. FENT 25MG THIS AM OFFERED PT RELEIF AEB PT RESTING WITH EYES CLOSED. PAIN RELEIF SHORT LIVED, PT GIVEN ULTRAM. MOM RELIEF, STILL APPEARS WITH FURROWED BROW. MARNI Osman IN PALLIATIVE WORKING WITH DR AND FAMILY TO HEALTH SCIENCE WRITER IN DECISION MAKING. LAURA AGREES TO ADMIN PAIN MEDICATION SPARINGLY SO NOT TO OVERSEDATE. LOW DOSE ROXINOL ADDED AND FENT DC'D PER 'S REQUEST. THOUGH PT CONTINUES TO DECLINE THE STATES HE DOES WANT TO GIVE HER NARCOTICS THIS WAS HER WISH WEEKS AGO WHEN IT MADE HER FEEL FUNNY AND NOT WANTING TO START AN ADDICTION. WORKING ON EDUCATION AND REALISTIC GOALE
[2024-09-17] MEDS ORDERED: Metoprolol Tartrate 1 MG/ML 5 ML VIAL IV STA (16:37)
[2024-09-17 17:00] LABS: Bun/Creatinine Ratio 12.2 (12.0-20.0); Creatinine, Blood 1.15 mg/dL (0.40-1.00); Magnesium, Blood 1.8 mg/dL (1.6-2.4); Phosphorus, Blood 2.7 mg/dL (2.5-4.9); Potassium, Blood 3.6 mmol/L (3.5-5.5)
[2024-09-17] MEDS ORDERED: Aspirin 300 MG Supp PR STA (17:44)
[2024-09-17 19:19] LABS: Anti-Xa UFH, PHA Monitoring 0.38 IU/mL; International Normalized Ratio 1.09; Prothrombin Time Results 11.9 Sec (9.7-11.5)
[2024-09-17] MEDS ORDERED: Heparin Sodium,Porcine/0.5 NS 500 ML IV SCH (19:45)
[2024-09-17] MEDS ORDERED: Heparin Sodium 5000 Units/ML 1ML MDV IV ONE (19:45)
--- NOTE | 2024-09-17 20:42 | NUR ---
SUMMARY- PT ALERT TO SELF AND S.O. DEPENDANT IN CARE. TURNED Q2. PT HAS HAD DECREASED MENTATION TODAY. RESISTANT TO COMFORT CARE AND RELUCTANT FOR PT TO HAVE PAIN MEDICATION. HE DOES NOT WANT PT TO BECOME TO SEDATED AND ALSO WANTS TO FOLLOW PT'S WISHES TO NOW HAVE NARCOTICS THAT SHE DIDN'T LIKE THE WAY SHE FEELS. HE DOES AGREE HE WANTS PT TO BE OUT OF PAIN. DR VERGARA DC'D FENT ORDERED ROXONOL 5MG LOW DOSE Q2. THIS DOSE SEEMS TO RELAX PT ENOUGH AND SHE IS STILL ABLE TO AWAKEN AND BE COMFORTABLE. PT'S HR ELEVATED TO 130 THIS AFTERNOON. CALLED JAI, PLACED TELE, 12 [address]KG WITH QUESTIONABLE [address] CHANGES. TELE SHOWING A FIB WITH RVR. ORDER FOR METOPROLOL 5MG IV ADMIN OVER 5MIN. HR CAME DOWN TO 100'S. ELEVATED TROP'S. CHELLY TAKING OVER TICKETER, ROCKY RN WILL NOTIFY HOSP IN CASE DR VERGARA DID NOT SEE RESULTS. ROCKY RN STARTING HEPARIN GTT NOW THAT PHARMACY SET UP DOSING. STARTED ABX TODAY. PT HAD 2 BM'S TODAY, GELLY, DARK BROWN. USING PUREWICK BUR TOOK OUT AFTER 2ND BM. REPORTED TO ROCKY RN
--- NOTE | 2024-09-17 23:05 | NUR ---
TRANSFER NOTE THIS RN RECEIVED REPORT FROM LD MEDEIROS ON MEDICAL FLOOR. PT TRANSFERRED TO PCU 2. PT ONLY MOANING AND MAKING UNINTELLIGABLE WORDS AT THIS TIME. AT BEDSIDE TO ANSWER QUESTIONS. SBP 70'S AT TIME WITH MAP 62-70. AFIB NOTED ON MONITOR WITH HR 80-110'S. ORDER FOR AMIODARONE NOTED. THIS RN SPOKE TO MD ASH REGARDING AMIODARONE ORDER AND HR BEING CONTROLLED WITH LOW BP. MD ASH STATED THAT SHE WILL "LOOK INTO IT". NO NEW ORDERS AT THIS TIME. THIS RN SPOKE TO THE PATIENTS REGARDING CURRENT SITUATION AND VITALS. STATED THAT IF WE NEEDED TO HE WOULD LIKE TO GO TO ICU TO BRING THE BP UP BUT DOES NOT WANT A CENTRAL LINE OR ANY OTHER INVASIVE PROCEDURES. CONFIRMED DNR CODE STATUS WITH . PURPLE WRIST BAND IN PLACE. BED IN LOWEST POSIITON AND CALL LIGHT WITHIN REACH.
--- NOTE | 2024-09-17 23:15 | NUR ---
PT TRANSFERED TO PCU PT HAS NEW ONSET OF AFIB/RVR WITH ST CHANGES. EKG DONE ON DAY SHIFT AND TELE ORDERED. RECIEVED REPORT FROM DAY SHIFT NURSE--HEP DRIP ORDERED. PHARMACY CALLED DURING SHIFT REPORT TO COMFIRM ORDER FOR HEP BOLUS/DRIP ORDERED. HEP DRIP VERIFIED BY SECOND NURSE AND STARTED PER ORDER. SECOND TROPONINS WERE DRAWN APROX 2000 TUB OPERATOR AT BEDSIDE APROX 2100. DR MUKHERJEE WANTS TO START PT ON AMIODORONE DRIP--PER PROTOCOL CAN'T BE GIVEN ON MED FLOOR. ORDER FOR TRANSFER TO PCU. ADVISED DR Quispe OF PT LOW BLOOD PRESSUE. DID NOT WANT TO GIVE FLUIDS OR ORDER PRESSORS. CONFIRMED JUST AMIODORONE AND XFER TO PCU. DR Quispe ALSO STATED TO DISCONTINUE TROPONINS AND NO NEED FOR ADDITIONAL EKGS. NEW TROP RESULTS 1319. NOTIFIED DR MOREIRA. (SEE CL NOTIFICATION) NO NEW ORDER AT THIS TIME. PT HAS BEEN ORIENTED TO SELF AND FAMILY. VERALIZATIONS ARE MOSTLY DIFFICULT TO UNDERSTAND WITH FEW SINGLE WORD UTTERANCES. HAS BEEN PRESENT AND HELPFUL WITH CARE. REPORT GIVEN TO PCU NURSE AND TRANSFERED AT APROX 2215. ALL PERSONAL BELONGINGS AND MEDICATIONS WERE SENT WITH THE PATIENT.
[2024-09-18] VITALS (14 sets, daily range): BP systolic 72–135; BP diastolic 50–77
[2024-09-18 03:22] LABS: BASOPHILS ABSOLUTE AUTO 0.02 K/mm3 (0.00-0.23); BASOPHILS PERCENT AUTO 0 % (0-2); EOSINOPHILS ABSOLUTE AUTO 0.01 K/mm3 (0.00-0.68); EOSINOPHILS PERCENT AUTO 0 % (0-6); Hematocrit 27.9 % (33.0-51.0); Hemoglobin 8.5 g/dL (11.5-16.0); IMMATURE GRAN PERCENT AUTO 2 % (0-1); LYMPHOCYTES ABSOLUTE AUTO 1.73 K/mm3 (0.84-5.20); LYMPHOCYTES PERCENT AUTO 11 % (21-46); MONOCYTES ABSOLUTE AUTO 0.88 K/mm3 (0.16-1.47); MONOCYTES PERCENT AUTO 5 % (4-13); Mean Corpuscular HGB 28.1 pg (26.0-34.0); Mean Corpuscular HGB Conc 30.5 g/dL (31.5-36.5); Mean Corpuscular Volume 92 fL (80-100); Mean Platelet Volume 9.4 fL (9.1-12.4); NEUTROPHILS ABSOLUTE AUTO 13.59 K/mm3 (1.96-9.15); NEUTROPHILS PERCENT AUTO 82 % (41-73); Platelet Count 281 K/mm3 (150-400); RDW Coefficient Variation 23.5 % (11.7-14.2); RDW Standard Deviation 78.8 fL (35.1-46.3); Red Blood Cell Count 3.03 M/mm3 (3.80-5.20); White Blood Cell Count 16.53 K/mm3 (4.00-11.30)
[2024-09-18] MEDS ORDERED: Dose Adjust by Pharmacy XX STA (03:46)
[2024-09-18 03:51] LABS: Albumin, Blood 1.5 g/dL (3.4-5.0); Albumin/Globulin Ratio 0.3 (0.8-1.8); Bilirubin, Total 0.5 mg/dL (0.1-1.0); Bun/Creatinine Ratio 12.3 (12.0-20.0); Calcium, Blood 9.5 mg/dL (8.5-10.1); Creatinine, Blood 1.38 mg/dL (0.40-1.00); Globulin, Blood 4.4 g/dL (2.2-4.0); Potassium, Blood 3.6 mmol/L (3.5-5.5); Total Protein, Blood 5.9 g/dL (6.4-8.2)
[2024-09-18] MEDS ORDERED: NS 500 ML IV SCH (05:00)
--- NOTE | 2024-09-18 06:10 | NUR ---
SHIFT SUMMARY PT A/OX1 TO SELF. UNABLE TO FOLLOW COMMANDS OR MAKE NEEDS KNOWN. MUMBLING SPEECH AND MOANING. BP LOW W/ MAPS RANGING 61-70S, MD NOTIFIED. GOAL MAP >60.. ON TELE, AFIB 80S-110S. TRANSFERRED FROM MEDICAL FLOOR DURING THIS SHIFT D/T NEW AFIB. REVIEW PT NOTES. ON RA W/ SPO2 >95%. BLADDER SCAN SHOWS <50 MLS, NO URINE OUTPUT. MD NOTIFIED OF LOW URINE OUTPUT AND BLADDER SCAN. MD WITH ORDERS FOR NS, INFUSING PER EMAR. PUREWICK IN PLACE. MD WITH ORDER TO NOT GIVE AMIODARONE GTT AT THIS TIME. WILL REPORT TO ONCOMING RN.
[2024-09-18] MEDS ORDERED: Digoxin 0.25 MG/ML 2ML Amp IV ONE (07:35)
--- NOTE | 2024-09-18 16:01 | NUR ---
CASE CONFERENCE: Met with pt's Ken multiple times today to discuss pt's rapidly declining health. He also met with the patient's daughter Mary today at the bedside. Ken states he is ready to make the change to comfort care. He v/u that we will be treating symptoms, and offering no further curative treatment. Per Dr. Beavers, comfort care ordered. Bedside RN updated.
--- NOTE | 2024-09-18 16:14 | NUR ---
UPDATE: PALLIATIVE CARE NURSE AT BEDSIDE. PT NOW COMFORT CARE.
[2024-09-18] MEDS ORDERED: LORazepam 1 MG Tab PO PRN (16:20)
[2024-09-18] MEDS ORDERED: Haloperidol Lactate 2 MG/ML Conc 1ML Dose PO PRN (16:20)
[2024-09-18] MEDS ORDERED: Scopolamine Hydrobromide Patch TOP PRN (16:20)
[2024-09-18] MEDS ORDERED: Atropine Sulfate 1% Opth Soln 2ML BTL SL PRN (16:20)
[2024-09-18] MEDS ORDERED: LORazepam 2 MG/ML 1ML Injection IV PRN (16:25)
[2024-09-18] MEDS ORDERED: Morphine Sulfate 20 MG/1ML 1 ML Oral Syringe SL PRN (16:25)
--- NOTE | 2024-09-18 17:16 | NUR ---
SHIFT SUMMARY: PT TRANSITIONED TO COMFORT CARE @1530. SPOUSE AT BEDSIDE THROUGHOUT THE DAY AND UPDATED FREQUENTLY OF PT PLAN OF CARE. PT MEDICATED FOR PAIN X1. PLAN FOR POSSIBLE DISCHARGE HOME WITH HOSPICE 09/19/24.
--- NOTE | 2024-09-18 18:26 | NUR ---
RECEIVED REPORT FROM CHUCK MEDEIROS OF PCU. PT GOING TO 337.
--- NOTE | 2024-09-19 07:49 | NUR ---
HARVEST WORKER FRUIT SUMMARY PT TRANSFERED FROM PCU AT THE START OF SHIFT WITH TRANSITION TO COMFORT CARE MEASURES. PT COMFORT ASSESSMENTS COMPLELE AND MEDS GIVEN PER MAR. PT PAINFUL WITH MOVEMENT AND AT TIMES ANXIOUS. SCAR AT BEDSIDE T/O THE SHIFT. HE IS EXPRESSING GUILT/REGRET OVER DECISION TO PLACE PT ON CC AND RECEIVE HOSPICE TX. PROVIDED THERAPEUTIC LISTENING. SAYS "HE TOOK HER (THE PATIENT) CHOICE AWAY. ENCOURAGED SPOUSE TO BE PRESENT WITH . PT IS SOOTHED BY LISTENING TO SPIRITUAL MUSIC. REPOSITIONING Q2. CALL LIGHT ACCESSILE.
--- NOTE | 2024-09-19 18:05 | NUR ---
CHECKED ON PT SEVERAL TIMES TODAY. NO ISSUES IDENTIFIED, AND PT HAS BEEN RESTING COMFORTABLY TODAY. REMAINS VIGILANT AT BEDSIDE, AND REMAINS AGREEABLE WITH PLAN OF CARE. PT'S RESP ARE EVEN, UNLABORED. DENIES QUESTIONS OR CONCERNED.
[2024-09-19] MEDS ORDERED: ZINC OXIDE/PETROLATUM, YELLOW 1 APPLIC/71 GM PASTE TOP PRN (18:15)
[2024-09-19] MEDS ORDERED: Morphine Sulfate 20 MG/1ML 1 ML Oral Syringe SL PRN (20:30)
--- NOTE | 2024-09-20 04:11 | NUR ---
TOLL SERVICE OBSERVER SUMMARY: PT ON COMFORT CARE MEASURES. PT MEDICATED T/O SHIFT FOR S/S OF PAIN / AGITATION PER EMAR ORDERS; EFFECTIVE. PT APPEARST TO BE DECLINING WITH MOTTLING, COARSE LUNG SOUNDS, DECREASED LOC. PT AT BEDSIDE AND EDUCATED ON END OF LIFE CARE / S/S TO WATCH FOR. LIYAH EXPRESSES DESIRE FOR [facility] TO BE NOTIFIED WHEN PT PASSES. PEST CONTROL SERVICE TECHNICIAN NOTIFIED. BED IN LOWEST POSITION. CALL LIGHT IN REACH OF PT LIYAH, CARES ONGOING ORDERED.
--- NOTE | 2024-09-20 05:42 | NUR ---
PT MEDICATED WITH PRN PAIN AND ANXIETY MEDS FOR COMFORT PER EMAR ORDERS. UPON REASSSESSMENT, PT OBSERVED TO BE PULSELESS AND NOT BREATHING. APICAL PULSE AUSCULTATED FOR 1 MINUTE. ASYSTOLE. ELENITA Heck RN CONFIRMED ASYSTOLE AT 0530. DRYER FEEDER NOTIFIED. NOTIFIED. [facility] IN [place] IS FAMILIES CHOSEN HOME, DRYER FEEDER AWARE. CONDOLENCES OFFERED TO PT AT BEDSIDE. HE DECLINES SPIRITUAL CARE VISIT AT THIS TIME.
--- NOTE | 2024-09-20 09:13 | NUR ---
0813- PT'S BODY REMOVED BY [facility] BY [facility]AD[facility].
== END 2024-09-20 05:30 | DRG 193 ==
LOC: ER 19:00 → MEDS 19:01 → PCU 09-17 22:03 → MEDS 09-18 18:55
PROVIDERS: Family Medicine; Internal Medicine; Student in an Organized Health Care Education/Training Program; ADMIT Internal Medicine
DX: J18.9 Pneumonia, unspecified organism (principal); G92.8 Other toxic encephalopathy; Z66 Do not resuscitate; Z51.5 Encounter for palliative care; I50.23 Acute on chronic systolic (congestive) heart failure; J96.01 Acute respiratory failure with hypoxia; I21.4 Non-ST elevation (NSTEMI) myocardial infarction; N18.4 Chronic kidney disease, stage 4 (severe); I13.0 Hypertensive heart and chronic kidney disease with heart failure and stage 1 through stage 4 chronic kidney disease, or unspecified chronic kidney disease; R44.3 Hallucinations, unspecified; J91.0 Malignant pleural effusion; C34.31 Malignant neoplasm of lower lobe, right bronchus or lung; J44.0 Chronic obstructive pulmonary disease with (acute) lower respiratory infection; I48.91 Unspecified atrial fibrillation; E11.22 Type 2 diabetes mellitus with diabetic chronic kidney disease; D50.9 Iron deficiency anemia, unspecified; E03.9 Hypothyroidism, unspecified; I44.4 Left anterior fascicular block; M81.0 Age-related osteoporosis without current pathological fracture; E11.39 Type 2 diabetes mellitus with other diabetic ophthalmic complication; H42 Glaucoma in diseases classified elsewhere; R51.9 Headache, unspecified; E87.6 Hypokalemia; E11.51 Type 2 diabetes mellitus with diabetic peripheral angiopathy without gangrene; G89.4 Chronic pain syndrome; R54 Age-related physical debility; T17.990A Other foreign object in respiratory tract, part unspecified in causing asphyxiation, initial encounter; Z91.199 Patient's noncompliance with other medical treatment and regimen due to unspecified reason; Z79.899 Other long term (current) drug therapy; Z79.84 Long term (current) use of oral hypoglycemic drugs; Z79.82 Long term (current) use of aspirin; Z79.02 Long term (current) use of antithrombotics/antiplatelets; Z79.890 Hormone replacement therapy; Z95.5 Presence of coronary angioplasty implant and graft; Z87.81 Personal history of (healed) traumatic fracture; Z87.891 Personal history of nicotine dependence; Z86.73 Personal history of transient ischemic attack (TIA), and cerebral infarction without residual deficits; Z91.148 Patient's other noncompliance with medication regimen for other reason; Z92.21 Personal history of antineoplastic chemotherapy; Z88.8 Allergy status to other drugs, medicaments and biological substances
CPT/HCPCS: 36415; 70450; 71046; 71260; 74177; 80048; 80053; 81001; 82947; 83735; 83880; 84100; 84145; 84484; 85025; 85520; 85610; 85730; 87086; 87507; 93005; 93010; 96365; 96367; 96372; 96375; 97110; 97162; 97166; 97530; 99285-25; A9270; G0378; J0692; J0696; J1171; J1644; J1650; J1938; J2185; J2543; J3010; J3370; J3480; J7040; J7050; Q9967